=== PATIENT | male | born 1965 | race Caucasian/White ===

== ENCOUNTER 2018-02-15 04:01 | Emergency (ER) | payer SELFPAY, OTHER ==
[2018-02-15 04:55] LABS: INR-International Normal Ratio 1.7; Prothrombin Time 19.7 SEC (12.0-14.7)
[2018-02-15 05:01] LABS: ALT (SGPT) 21 U/L (8-55); AST (SGOT) 27 U/L (5-34); Albumin 4.2 g/dL (3.5-5.0); Alcohol 237 mg/dL (Less than 10); Alkaline Phosphatase 107 U/L (40-150); Anion Gap 15 mmol/L (10-20); BUN (Urea Nitrogen) 11 mg/dL (8.4-25.7); Bilirubin, Total 0.7 mg/dL (0.2-1.2); CK (CPK) 393 U/L (30-200); Calc. Creatinine Clearance 0 mL/min (70-130); Calcium 9.2 mg/dL (7.8-10.44); Carbon Dioxide 28 mmol/L (22-29); Chloride 103 mmol/L (98-107); Estimated GFR-MDRD Greater than 90; Globulin 3.5 g/dL (2.4-3.5); Glucose 96 mg/dL (70-105); Lipase 63 U/L (8-78); Potassium 3.9 mmol/L (3.5-5.1); Protein, Total 7.7 g/dL (6.0-8.3); Sodium 142 mmol/L (136-145)
[2018-02-15 05:04] LABS: #Basophils 0.1 thou/uL (0.0-0.2); #Eosinphils 0.2 thou/uL (0.0-0.7); #Lymphocytes 1.7 thou/uL (1.20-3.40); #Monocytes 0.7 thou/uL (0.11-0.59); #Neutrophils 3.9 thou/uL (1.40-6.50); %Eosinophils 2.8 % (0.0-10.0); %Lymphocytes 25.8 % (21.0-51.0); %Monocytes 10.8 % (0.0-10.0); %Neutrophils 58.6 % (42.0-75.0); Hemoglobin 17.5 g/dL (14.0-18.0); Mean Corpuscular HGB CONC 34.4 g/dL (32.0-36.0); Mean Corpuscular Hemoglobin 35.2 pg (27.0-31.0); Mean Corpuscular Volume 102.3 fL (78.0-98.0); Mean Platelet Volume 7.6 fL (7.4-10.4); Platelet Count 214 thou/uL (130-400); RBC Distribution Width 12.3 % (11.5-14.5); Red Blood Cell (RBC) Count 4.99 mill/uL (4.70-6.10); White Blood Cell (WBC) Count 6.6 thou/uL (4.8-10.8)
[2018-02-15 05:05] LABS: Anisocytosis MARKED = >30 cells (100X) (0-5/hpf); Macrocytosis MARKED = >30 cells (100X) (0-5/hpf)
[2018-02-15 05:07] LABS: Troponin I 0.094 ng/mL (< 0.028)
[2018-02-15 05:14] LABS: CKMB 8.4 ng/mL (0-6.6)
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
[2018-02-15] MEDS ORDERED: Iopamidol 370 76% 100 ML VIAL ONE (22:15)
== END 2018-02-15 07:00 | disposition short-term general hospital (02) ==
LOC: EDBD → MADERS 04:01
DX: S30.1XXA Contusion of abdominal wall, initial encounter (principal); S50.12XA Contusion of left forearm, initial encounter; S50.11XA Contusion of right forearm, initial encounter; S60.212A Contusion of left wrist, initial encounter; S60.211A Contusion of right wrist, initial encounter; R00.2 Palpitations; R07.9 Chest pain, unspecified; I48.91 Unspecified atrial fibrillation; E11.9 Type 2 diabetes mellitus without complications; E03.9 Hypothyroidism, unspecified; I10 Essential (primary) hypertension; J44.9 Chronic obstructive pulmonary disease, unspecified; F32.9 Major depressive disorder, single episode, unspecified; F17.210 Nicotine dependence, cigarettes, uncomplicated; Z79.82 Long term (current) use of aspirin; Z79.891 Long term (current) use of opiate analgesic; Z79.899 Other long term (current) drug therapy; X58.XXXA Exposure to other specified factors, initial encounter
CPT/HCPCS: 36415; 70450; 71260; 74177; 80053; 80307; 82553; 83690; 83880; 84484; 85025; 85610; 85730; 93005; 94760

== ENCOUNTER 2021-06-01 15:58 | Inpatient (IN) | payer MEDICARE ==
[2021-06-01] MEDS ORDERED: Acetaminophen 325 MG TAB PO PRN (21:35)
[2021-06-01] MEDS ORDERED: Bisacodyl 5 MG TAB PO PRN (21:35)
[2021-06-01] MEDS ORDERED: Ondansetron ODT 4 MG TAB PO PRN (21:35)
[2021-06-01] MEDS ORDERED: NICOTINE 14 MG TD SCH (21:45)
[2021-06-01] MEDS ORDERED: Albuterol 200 PUFF (6.7GM INHALER) INH PRN (21:52)
[2021-06-01] MEDS: HYDROcodone/Acetaminophen 10/325 mg Tablet PO PRN (22:16)
[2021-06-01] MEDS: Cephalexin 250 MG CAP PO SCH (22:17)
[2021-06-01] MEDS: Nicotine 7 MG PATCH TD SCH (22:17)
[2021-06-01] MEDS: Milk Of Magnesia 30 ML UDCUP PO PRN (22:17)
[2021-06-02] MEDS: Ciprofloxacin 500 MG TAB PO SCH ×2 (05:13→20:05)
[2021-06-02] MEDS: Cephalexin 250 MG CAP PO SCH ×3 (05:13→21:15)
[2021-06-02] MEDS: Levothyroxine Sodium 50 MCG TAB PO SCH (05:13)
[2021-06-02] MEDS: HYDROcodone/Acetaminophen 10/325 mg Tablet PO PRN ×4 (05:16→21:15)
[2021-06-02 05:55] LABS: INR-International Normal Ratio 1.8; Prothrombin Time 21.5 sec (12.0-14.7)
[2021-06-02] MEDS: Spironolactone 25 MG TAB PO SCH (08:07)
[2021-06-02] MEDS: Pregabalin 75 MG CAP PO SCH ×3 (08:07→21:13)
[2021-06-02] MEDS: Finasteride 5 MG TAB PO SCH (08:07)
[2021-06-02] MEDS: Atorvastatin Calcium 10 MG TAB PO SCH (08:08)
[2021-06-02] MEDS: Tamsulosin HCl 0.4 MG CAP PO SCH (08:08)
[2021-06-02] MEDS: Famotidine 20 MG TAB PO SCH ×2 (08:08→21:13)
[2021-06-02] MEDS: tiZANidine HCl 4 MG TAB PO SCH ×3 (08:16→21:15)
[2021-06-02] MEDS ORDERED: Bumetanide 1 MG TAB PO SCH (13:30)
[2021-06-02] MEDS: Warfarin Sodium 2.5 MG TAB PO SCH (16:20)
[2021-06-02] MEDS: Warfarin Sodium 5 MG TAB PO SCH (16:21)
[2021-06-02] MEDS ORDERED: Warfarin Sodium 7.5 MG TAB PO SCH (17:00)
[2021-06-02] MEDS: Bumetanide 1 MG TAB PO SCH (21:13)
[2021-06-02] MEDS: Nicotine 7 MG PATCH TD SCH (21:16)
[2021-06-03] MEDS: HYDROcodone/Acetaminophen 10/325 mg Tablet PO PRN ×4 (02:00→20:45)
[2021-06-03] MEDS: Cephalexin 250 MG CAP PO SCH (05:25)
[2021-06-03] MEDS: Levothyroxine Sodium 50 MCG TAB PO SCH (05:25)
[2021-06-03] MEDS: Ciprofloxacin 500 MG TAB PO SCH ×2 (05:25→20:41)
[2021-06-03 05:37] LABS: INR-International Normal Ratio 2.2; Prothrombin Time 25.2 sec (12.0-14.7)
[2021-06-03] MEDS: Famotidine 20 MG TAB PO SCH ×2 (08:28→20:42)
[2021-06-03] MEDS: Pregabalin 75 MG CAP PO SCH ×3 (08:28→20:41)
[2021-06-03] MEDS: Finasteride 5 MG TAB PO SCH (08:28)
[2021-06-03] MEDS: Bumetanide 1 MG TAB PO SCH ×2 (08:28→17:29)
[2021-06-03] MEDS: Spironolactone 25 MG TAB PO SCH (08:29)
[2021-06-03] MEDS: tiZANidine HCl 4 MG TAB PO SCH ×3 (08:29→20:42)
[2021-06-03] MEDS: Tamsulosin HCl 0.4 MG CAP PO SCH (08:29)
[2021-06-03] MEDS: Atorvastatin Calcium 10 MG TAB PO SCH ×2 (10:29→20:41)
[2021-06-03] MEDS: Cephalexin 500 MG CAP PO SCH ×2 (14:30→21:09)
[2021-06-03] MEDS: Warfarin Sodium 2.5 MG TAB PO SCH (17:31)
[2021-06-03] MEDS: Warfarin Sodium 5 MG TAB PO SCH (17:31)
[2021-06-03] MEDS ORDERED: Nicotine 14 MG PATCH TD SCH (21:00)
[2021-06-04] MEDS: HYDROcodone/Acetaminophen 10/325 mg Tablet PO PRN ×2 (01:29→22:06)
[2021-06-04] MEDS: Levothyroxine Sodium 50 MCG TAB PO SCH (05:15)
[2021-06-04] MEDS: Ciprofloxacin 500 MG TAB PO SCH ×2 (05:15→19:16)
[2021-06-04] MEDS: Cephalexin 500 MG CAP PO SCH ×3 (05:15→22:06)
[2021-06-04 05:36] LABS: Hemoglobin 11.4 g/dL (14.0-18.0); Platelet Count 355 thou/uL (130-400)
[2021-06-04 05:48] LABS: INR-International Normal Ratio 0.9; Prothrombin Time 12.6 sec (12.0-14.7)
[2021-06-04] MEDS: HYDROcodone/Acetaminophen 5/325 mg Tablet PO PRN ×3 (06:25→18:01)
[2021-06-04] MEDS: Pregabalin 75 MG CAP PO SCH ×3 (08:13→19:59)
[2021-06-04] MEDS: Bumetanide 1 MG TAB PO SCH ×2 (08:13→17:59)
[2021-06-04] MEDS: Famotidine 20 MG TAB PO SCH ×2 (08:13→20:00)
[2021-06-04] MEDS: Spironolactone 25 MG TAB PO SCH (08:14)
[2021-06-04] MEDS: Finasteride 5 MG TAB PO SCH (08:14)
[2021-06-04] MEDS: Tamsulosin HCl 0.4 MG CAP PO SCH (08:15)
[2021-06-04] MEDS: tiZANidine HCl 4 MG TAB PO SCH ×3 (08:15→20:00)
[2021-06-04] MEDS: Warfarin Sodium 5 MG TAB PO SCH (18:00)
[2021-06-04] MEDS: Warfarin Sodium 2.5 MG TAB PO SCH (18:01)
[2021-06-04] MEDS: Atorvastatin Calcium 10 MG TAB PO SCH (19:59)
[2021-06-04] MEDS: Milk Of Magnesia 30 ML UDCUP PO PRN (22:10)
[2021-06-05] MEDS: HYDROcodone/Acetaminophen 10/325 mg Tablet PO PRN ×5 (02:15→19:26)
[2021-06-05] MEDS: Levothyroxine Sodium 50 MCG TAB PO SCH (05:08)
[2021-06-05] MEDS: Ciprofloxacin 500 MG TAB PO SCH ×2 (05:08→19:27)
[2021-06-05] MEDS: Cephalexin 500 MG CAP PO SCH ×3 (05:08→21:00)
[2021-06-05 06:07] LABS: INR-International Normal Ratio 2.7; Prothrombin Time 29.6 sec (12.0-14.7)
[2021-06-05] MEDS: Finasteride 5 MG TAB PO SCH (09:46)
[2021-06-05] MEDS: tiZANidine HCl 4 MG TAB PO SCH ×3 (09:46→20:27)
[2021-06-05] MEDS: Pregabalin 75 MG CAP PO SCH ×3 (09:46→20:26)
[2021-06-05] MEDS: Bumetanide 1 MG TAB PO SCH ×2 (09:47→17:10)
[2021-06-05] MEDS: Polyethylene Glycol 3350 17 GM Packet PO SCH (09:48)
[2021-06-05] MEDS: Famotidine 20 MG TAB PO SCH ×2 (09:48→20:27)
[2021-06-05] MEDS: Spironolactone 25 MG TAB PO SCH (09:48)
[2021-06-05] MEDS: Tamsulosin HCl 0.4 MG CAP PO SCH (09:48)
[2021-06-05] MEDS: Warfarin Sodium 5 MG TAB PO SCH (17:10)
[2021-06-05] MEDS: Warfarin Sodium 2.5 MG TAB PO SCH (17:10)
[2021-06-05] MEDS: Milk Of Magnesia 30 ML UDCUP PO PRN (20:26)
[2021-06-05] MEDS: Atorvastatin Calcium 10 MG TAB PO SCH (20:27)
[2021-06-06] MEDS: HYDROcodone/Acetaminophen 10/325 mg Tablet PO PRN ×5 (02:26→20:49)
[2021-06-06] MEDS: Ciprofloxacin 500 MG TAB PO SCH ×2 (05:02→20:50)
[2021-06-06] MEDS: Levothyroxine Sodium 50 MCG TAB PO SCH (05:02)
[2021-06-06] MEDS: Cephalexin 500 MG CAP PO SCH ×3 (05:02→21:52)
[2021-06-06 05:37] LABS: INR-International Normal Ratio 2.7
[2021-06-06] MEDS: Famotidine 20 MG TAB PO SCH ×2 (09:10→20:51)
[2021-06-06] MEDS: Pregabalin 75 MG CAP PO SCH ×3 (09:10→20:49)
[2021-06-06] MEDS: Spironolactone 25 MG TAB PO SCH (09:10)
[2021-06-06] MEDS: Tamsulosin HCl 0.4 MG CAP PO SCH (09:10)
[2021-06-06] MEDS: Polyethylene Glycol 3350 17 GM Packet PO SCH (09:10)
[2021-06-06] MEDS: Bumetanide 1 MG TAB PO SCH ×2 (09:10→17:45)
[2021-06-06] MEDS: tiZANidine HCl 4 MG TAB PO SCH ×3 (09:11→20:51)
[2021-06-06] MEDS: Finasteride 5 MG TAB PO SCH (09:11)
[2021-06-06] MEDS: Warfarin Sodium 5 MG TAB PO SCH (17:46)
[2021-06-06] MEDS: Warfarin Sodium 2.5 MG TAB PO SCH (17:46)
[2021-06-06] MEDS: Atorvastatin Calcium 10 MG TAB PO SCH (20:51)
[2021-06-06] MEDS: Milk Of Magnesia 30 ML UDCUP PO PRN (22:53)
[2021-06-07] MEDS: HYDROcodone/Acetaminophen 10/325 mg Tablet PO PRN ×3 (04:00→16:18)
[2021-06-07] MEDS: Ciprofloxacin 500 MG TAB PO SCH ×2 (05:03→20:18)
[2021-06-07] MEDS: Levothyroxine Sodium 50 MCG TAB PO SCH (05:03)
[2021-06-07] MEDS: Cephalexin 500 MG CAP PO SCH ×3 (05:03→21:32)
[2021-06-07 05:26] LABS: Hemoglobin 13.4 g/dL (14.0-18.0); Platelet Count 197 thou/uL (130-400)
[2021-06-07 05:40] LABS: Prothrombin Time 31.5 sec (12.0-14.7)
[2021-06-07] MEDS: Polyethylene Glycol 3350 17 GM Packet PO SCH (08:12)
[2021-06-07] MEDS: Finasteride 5 MG TAB PO SCH (08:13)
[2021-06-07] MEDS: Famotidine 20 MG TAB PO SCH ×2 (08:13→20:18)
[2021-06-07] MEDS: Bumetanide 1 MG TAB PO SCH ×2 (08:13→17:04)
[2021-06-07] MEDS: Tamsulosin HCl 0.4 MG CAP PO SCH (08:14)
[2021-06-07] MEDS: tiZANidine HCl 4 MG TAB PO SCH ×3 (08:14→20:18)
[2021-06-07] MEDS: Pregabalin 75 MG CAP PO SCH ×3 (08:15→20:17)
[2021-06-07] MEDS: Spironolactone 25 MG TAB PO SCH (08:15)
[2021-06-07 15:45] LABS: SARS-CoV-2 PCR by NAA Not Detected (NotDetected)
[2021-06-07] MEDS ORDERED: HYDROcodone/Acetaminophen 10/325 mg Tablet PO PRN (17:41)
[2021-06-07] MEDS ORDERED: HYDROcodone/Acetaminophen 5/325 mg Tablet PO SCH (18:00)
[2021-06-07] MEDS: HYDROcodone/Acetaminophen 5/325 mg Tablet PO PRN (20:17)
[2021-06-07] MEDS: Atorvastatin Calcium 10 MG TAB PO SCH (20:18)
[2021-06-07] MEDS: Milk Of Magnesia 30 ML UDCUP PO PRN (20:18)
[2021-06-08] MEDS: HYDROcodone/Acetaminophen 5/325 mg Tablet PO PRN ×5 (01:54→21:40)
[2021-06-08] MEDS: Cephalexin 500 MG CAP PO SCH ×3 (05:11→21:41)
[2021-06-08] MEDS: Ciprofloxacin 500 MG TAB PO SCH ×2 (05:11→20:42)
[2021-06-08] MEDS: Levothyroxine Sodium 50 MCG TAB PO SCH (05:11)
[2021-06-08 05:38] LABS: INR-International Normal Ratio 2.8; Prothrombin Time 30.4 sec (12.0-14.7)
[2021-06-08] MEDS: Spironolactone 25 MG TAB PO SCH (08:43)
[2021-06-08] MEDS: Bumetanide 1 MG TAB PO SCH ×2 (08:43→17:00)
[2021-06-08] MEDS: Pregabalin 75 MG CAP PO SCH ×3 (08:43→20:42)
[2021-06-08] MEDS: Polyethylene Glycol 3350 17 GM Packet PO SCH (08:43)
[2021-06-08] MEDS: Famotidine 20 MG TAB PO SCH ×2 (08:43→20:43)
[2021-06-08] MEDS: tiZANidine HCl 4 MG TAB PO SCH ×3 (08:43→20:43)
[2021-06-08] MEDS: Finasteride 5 MG TAB PO SCH (08:43)
[2021-06-08] MEDS: Tamsulosin HCl 0.4 MG CAP PO SCH (08:43)
[2021-06-08] MEDS: Warfarin Sodium 5 MG TAB PO SCH (17:00)
[2021-06-08] MEDS ORDERED: Warfarin Sodium 5 MG TAB PO SCH (17:00)
[2021-06-08] MEDS: Atorvastatin Calcium 10 MG TAB PO SCH (20:42)
[2021-06-08] MEDS: Milk Of Magnesia 30 ML UDCUP PO PRN (20:46)
[2021-06-09] MEDS: HYDROcodone/Acetaminophen 5/325 mg Tablet PO PRN ×5 (01:27→19:32)
[2021-06-09] MEDS: Cephalexin 500 MG CAP PO SCH ×3 (05:29→21:11)
[2021-06-09] MEDS: Levothyroxine Sodium 50 MCG TAB PO SCH (05:29)
[2021-06-09] MEDS: Ciprofloxacin 500 MG TAB PO SCH ×2 (05:29→19:31)
[2021-06-09 05:55] LABS: INR-International Normal Ratio 2.8; Prothrombin Time 30.3 sec (12.0-14.7)
[2021-06-09] MEDS: Finasteride 5 MG TAB PO SCH (08:41)
[2021-06-09] MEDS: Spironolactone 25 MG TAB PO SCH (08:41)
[2021-06-09] MEDS: Famotidine 20 MG TAB PO SCH ×2 (08:41→20:03)
[2021-06-09] MEDS: Bumetanide 1 MG TAB PO SCH ×2 (08:41→16:58)
[2021-06-09] MEDS: Tamsulosin HCl 0.4 MG CAP PO SCH (08:41)
[2021-06-09] MEDS: tiZANidine HCl 4 MG TAB PO SCH ×3 (08:41→20:02)
[2021-06-09] MEDS: Pregabalin 75 MG CAP PO SCH ×3 (08:41→20:00)
[2021-06-09] MEDS: Polyethylene Glycol 3350 17 GM Packet PO SCH (08:41)
[2021-06-09] MEDS: Warfarin Sodium 5 MG TAB PO SCH (16:59)
[2021-06-09] MEDS: Senokot S 8.6-50 MG TAB PO PRN (20:00)
[2021-06-09] MEDS: Milk Of Magnesia 30 ML UDCUP PO PRN (20:00)
[2021-06-09] MEDS: Atorvastatin Calcium 10 MG TAB PO SCH (20:01)
[2021-06-10] MEDS: HYDROcodone/Acetaminophen 5/325 mg Tablet PO PRN ×6 (00:42→23:47)
[2021-06-10] MEDS: Cephalexin 500 MG CAP PO SCH ×3 (05:03→21:35)
[2021-06-10] MEDS: Ciprofloxacin 500 MG TAB PO SCH ×2 (05:04→20:00)
[2021-06-10] MEDS: Levothyroxine Sodium 50 MCG TAB PO SCH (05:04)
[2021-06-10 05:44] LABS: Platelet Count 179 thou/uL (130-400)
[2021-06-10 05:49] LABS: INR-International Normal Ratio 2.2; Prothrombin Time 25.2 sec (12.0-14.7)
[2021-06-10] MEDS: Pregabalin 75 MG CAP PO SCH ×3 (08:11→21:36)
[2021-06-10] MEDS: Polyethylene Glycol 3350 17 GM Packet PO SCH (08:12)
[2021-06-10] MEDS: Bumetanide 1 MG TAB PO SCH ×2 (08:12→17:23)
[2021-06-10] MEDS: Finasteride 5 MG TAB PO SCH (08:13)
[2021-06-10] MEDS: Spironolactone 25 MG TAB PO SCH (08:13)
[2021-06-10] MEDS: tiZANidine HCl 4 MG TAB PO SCH ×3 (08:13→21:35)
[2021-06-10] MEDS: Tamsulosin HCl 0.4 MG CAP PO SCH (08:13)
[2021-06-10] MEDS: Famotidine 20 MG TAB PO SCH ×2 (08:13→21:35)
[2021-06-10] MEDS ORDERED: Pregabalin 75 MG CAP PO SCH (15:00)
[2021-06-10] MEDS: Warfarin Sodium 5 MG TAB PO SCH (17:24)
[2021-06-10] MEDS: Atorvastatin Calcium 10 MG TAB PO SCH (21:35)
[2021-06-10] MEDS: Milk Of Magnesia 30 ML UDCUP PO PRN (21:38)
[2021-06-11] MEDS: Levothyroxine Sodium 50 MCG TAB PO SCH (05:19)
[2021-06-11] MEDS: Cephalexin 500 MG CAP PO SCH ×3 (05:19→21:34)
[2021-06-11] MEDS: HYDROcodone/Acetaminophen 5/325 mg Tablet PO PRN ×4 (05:20→19:46)
[2021-06-11] MEDS: Ciprofloxacin 500 MG TAB PO SCH ×2 (05:20→19:46)
[2021-06-11 05:43] LABS: INR-International Normal Ratio 2.1; Prothrombin Time 24.3 sec (12.0-14.7)
[2021-06-11] MEDS: Tamsulosin HCl 0.4 MG CAP PO SCH (08:52)
[2021-06-11] MEDS: Bumetanide 1 MG TAB PO SCH ×2 (08:52→17:05)
[2021-06-11] MEDS: Famotidine 20 MG TAB PO SCH ×2 (08:52→21:34)
[2021-06-11] MEDS: Polyethylene Glycol 3350 17 GM Packet PO SCH (08:52)
[2021-06-11] MEDS: Spironolactone 25 MG TAB PO SCH (08:52)
[2021-06-11] MEDS: tiZANidine HCl 4 MG TAB PO SCH ×3 (08:52→21:34)
[2021-06-11] MEDS: Finasteride 5 MG TAB PO SCH (08:52)
[2021-06-11] MEDS: Pregabalin 75 MG CAP PO SCH ×3 (08:55→21:34)
[2021-06-11] MEDS: Warfarin Sodium 5 MG TAB PO SCH (17:06)
[2021-06-11] MEDS: Atorvastatin Calcium 10 MG TAB PO SCH (21:34)
[2021-06-11] MEDS: Senokot S 8.6-50 MG TAB PO PRN (21:40)
[2021-06-11] MEDS: Milk Of Magnesia 30 ML UDCUP PO PRN (21:41)
[2021-06-12] MEDS: HYDROcodone/Acetaminophen 5/325 mg Tablet PO PRN ×4 (02:46→20:22)
[2021-06-12] MEDS: Cephalexin 500 MG CAP PO SCH ×3 (05:29→20:23)
[2021-06-12] MEDS: Levothyroxine Sodium 50 MCG TAB PO SCH (05:29)
[2021-06-12] MEDS: Ciprofloxacin 500 MG TAB PO SCH ×2 (05:30→20:23)
[2021-06-12 05:35] LABS: INR-International Normal Ratio 1.9
[2021-06-12] MEDS: Spironolactone 25 MG TAB PO SCH (08:38)
[2021-06-12] MEDS: Bumetanide 1 MG TAB PO SCH ×2 (08:38→17:34)
[2021-06-12] MEDS: tiZANidine HCl 4 MG TAB PO SCH ×3 (08:38→20:22)
[2021-06-12] MEDS: Finasteride 5 MG TAB PO SCH (08:39)
[2021-06-12] MEDS: Tamsulosin HCl 0.4 MG CAP PO SCH (08:39)
[2021-06-12] MEDS: Polyethylene Glycol 3350 17 GM Packet PO SCH (08:39)
[2021-06-12] MEDS: Famotidine 20 MG TAB PO SCH ×2 (08:39→20:22)
[2021-06-12] MEDS: Pregabalin 75 MG CAP PO SCH ×3 (08:39→20:22)
[2021-06-12] MEDS: Warfarin Sodium 7.5 MG TAB PO SCH (17:35)
[2021-06-12] MEDS: Milk Of Magnesia 30 ML UDCUP PO PRN (20:21)
[2021-06-12] MEDS: Atorvastatin Calcium 10 MG TAB PO SCH (20:23)
[2021-06-13] MEDS: HYDROcodone/Acetaminophen 5/325 mg Tablet PO PRN ×6 (01:18→23:51)
[2021-06-13] MEDS: Levothyroxine Sodium 50 MCG TAB PO SCH (05:31)
[2021-06-13 05:33] LABS: Platelet Count 174 thou/uL (130-400)
[2021-06-13 05:41] LABS: INR-International Normal Ratio 1.8; Prothrombin Time 20.9 sec (12.0-14.7)
[2021-06-13] MEDS: Penicillin V Potassium 250 MG TAB PO SCH ×2 (08:26→19:52)
[2021-06-13] MEDS: Tamsulosin HCl 0.4 MG CAP PO SCH (08:27)
[2021-06-13] MEDS: Finasteride 5 MG TAB PO SCH (08:27)
[2021-06-13] MEDS: Famotidine 20 MG TAB PO SCH ×2 (08:27→19:53)
[2021-06-13] MEDS: Bumetanide 1 MG TAB PO SCH ×2 (08:27→17:00)
[2021-06-13] MEDS: tiZANidine HCl 4 MG TAB PO SCH ×3 (08:27→19:54)
[2021-06-13] MEDS: Spironolactone 25 MG TAB PO SCH (08:27)
[2021-06-13] MEDS: Polyethylene Glycol 3350 17 GM Packet PO SCH (08:27)
[2021-06-13] MEDS: Pregabalin 75 MG CAP PO SCH ×3 (08:27→19:52)
[2021-06-13] MEDS: Warfarin Sodium 7.5 MG TAB PO SCH (17:00)
[2021-06-13] MEDS: Atorvastatin Calcium 10 MG TAB PO SCH (19:52)
[2021-06-13] MEDS: Milk Of Magnesia 30 ML UDCUP PO PRN (19:54)
[2021-06-14] MEDS: HYDROcodone/Acetaminophen 5/325 mg Tablet PO PRN ×4 (04:42→21:50)
[2021-06-14] MEDS: Levothyroxine Sodium 50 MCG TAB PO SCH (04:43)
[2021-06-14 05:32] LABS: INR-International Normal Ratio 1.8; Prothrombin Time 20.8 sec (12.0-14.7)
[2021-06-14] MEDS ORDERED: Tamsulosin HCl 0.4 MG CAP ONE (08:24)
[2021-06-14] MEDS: Penicillin V Potassium 250 MG TAB PO SCH ×2 (08:29→21:51)
[2021-06-14] MEDS: Bumetanide 1 MG TAB PO SCH ×2 (08:29→16:40)
[2021-06-14] MEDS: Finasteride 5 MG TAB PO SCH (08:30)
[2021-06-14] MEDS: Tamsulosin HCl 0.4 MG CAP PO SCH (08:30)
[2021-06-14] MEDS: Spironolactone 25 MG TAB PO SCH (08:30)
[2021-06-14] MEDS: Famotidine 20 MG TAB PO SCH ×2 (08:30→21:51)
[2021-06-14] MEDS: tiZANidine HCl 4 MG TAB PO SCH ×3 (08:30→21:51)
[2021-06-14] MEDS: Polyethylene Glycol 3350 17 GM Packet PO SCH (08:30)
[2021-06-14] MEDS: Pregabalin 75 MG CAP PO SCH ×3 (08:30→21:49)
[2021-06-14] MEDS: Warfarin Sodium 7.5 MG TAB PO SCH (16:41)
[2021-06-14 17:58] LABS: SARS-CoV-2 PCR by NAA Not Detected (NotDetected)
[2021-06-14] MEDS: Atorvastatin Calcium 10 MG TAB PO SCH (21:51)
[2021-06-15] MEDS: HYDROcodone/Acetaminophen 5/325 mg Tablet PO PRN ×4 (02:10→21:05)
[2021-06-15 05:39] LABS: INR-International Normal Ratio 1.7
[2021-06-15] MEDS: Levothyroxine Sodium 50 MCG TAB PO SCH (05:46)
[2021-06-15] MEDS: Polyethylene Glycol 3350 17 GM Packet PO SCH (08:05)
[2021-06-15] MEDS: Finasteride 5 MG TAB PO SCH (08:06)
[2021-06-15] MEDS: Bumetanide 1 MG TAB PO SCH ×2 (08:06→17:23)
[2021-06-15] MEDS: tiZANidine HCl 4 MG TAB PO SCH ×3 (08:06→21:04)
[2021-06-15] MEDS: Pregabalin 75 MG CAP PO SCH ×3 (08:06→21:04)
[2021-06-15] MEDS: Tamsulosin HCl 0.4 MG CAP PO SCH (08:07)
[2021-06-15] MEDS: Spironolactone 25 MG TAB PO SCH (08:07)
[2021-06-15] MEDS: Famotidine 20 MG TAB PO SCH ×2 (08:07→21:04)
[2021-06-15] MEDS: Penicillin V Potassium 250 MG TAB PO SCH ×2 (08:07→21:04)
[2021-06-15] MEDS: Warfarin Sodium 7.5 MG TAB PO SCH (17:23)
[2021-06-15] MEDS: Atorvastatin Calcium 10 MG TAB PO SCH (21:04)
[2021-06-15] MEDS ORDERED: Melatonin 3 MG TAB PO PRN (21:18)
[2021-06-16] MEDS: HYDROcodone/Acetaminophen 5/325 mg Tablet PO PRN ×5 (02:54→20:30)
[2021-06-16 05:19] LABS: Hemoglobin 12.6 g/dL (14.0-18.0); Platelet Count 173 thou/uL (130-400)
[2021-06-16 05:29] LABS: INR-International Normal Ratio 1.7; Prothrombin Time 20.5 sec (12.0-14.7)
[2021-06-16] MEDS: Levothyroxine Sodium 50 MCG TAB PO SCH (05:44)
[2021-06-16] MEDS: Penicillin V Potassium 250 MG TAB PO SCH ×2 (08:04→20:32)
[2021-06-16] MEDS: tiZANidine HCl 4 MG TAB PO SCH ×3 (08:04→20:33)
[2021-06-16] MEDS: Bumetanide 1 MG TAB PO SCH ×2 (08:04→16:15)
[2021-06-16] MEDS: Polyethylene Glycol 3350 17 GM Packet PO SCH (08:04)
[2021-06-16] MEDS: Finasteride 5 MG TAB PO SCH (08:04)
[2021-06-16] MEDS: Famotidine 20 MG TAB PO SCH ×2 (08:04→20:33)
[2021-06-16] MEDS: Tamsulosin HCl 0.4 MG CAP PO SCH (08:04)
[2021-06-16] MEDS: Pregabalin 75 MG CAP PO SCH ×3 (08:04→20:32)
[2021-06-16] MEDS: Spironolactone 25 MG TAB PO SCH (08:04)
[2021-06-16] MEDS: Warfarin Sodium 1 MG TAB PO SCH (16:15)
[2021-06-16] MEDS: Warfarin Sodium 7.5 MG TAB PO SCH (16:15)
[2021-06-16] MEDS: Atorvastatin Calcium 10 MG TAB PO SCH (20:33)
[2021-06-17] MEDS: Melatonin 3 MG TAB PO PRN ×2 (00:13→20:22)
[2021-06-17] MEDS: HYDROcodone/Acetaminophen 5/325 mg Tablet PO PRN ×5 (00:13→21:22)
[2021-06-17] MEDS: Levothyroxine Sodium 50 MCG TAB PO SCH (05:24)
[2021-06-17 05:39] LABS: INR-International Normal Ratio 1.8; Prothrombin Time 21.2 sec (12.0-14.7)
[2021-06-17] MEDS: Pregabalin 75 MG CAP PO SCH ×3 (08:03→20:21)
[2021-06-17] MEDS: Bumetanide 1 MG TAB PO SCH ×2 (08:04→16:46)
[2021-06-17] MEDS: Spironolactone 25 MG TAB PO SCH (08:04)
[2021-06-17] MEDS: Polyethylene Glycol 3350 17 GM Packet PO SCH (08:04)
[2021-06-17] MEDS: Famotidine 20 MG TAB PO SCH ×2 (08:05→20:22)
[2021-06-17] MEDS: Penicillin V Potassium 250 MG TAB PO SCH ×2 (08:05→20:22)
[2021-06-17] MEDS: tiZANidine HCl 4 MG TAB PO SCH ×3 (08:05→20:22)
[2021-06-17] MEDS: Tamsulosin HCl 0.4 MG CAP PO SCH (08:05)
[2021-06-17] MEDS: Finasteride 5 MG TAB PO SCH (08:06)
[2021-06-17] MEDS: Warfarin Sodium 1 MG TAB PO SCH (16:46)
[2021-06-17] MEDS: Warfarin Sodium 7.5 MG TAB PO SCH (16:47)
[2021-06-17] MEDS: Atorvastatin Calcium 10 MG TAB PO SCH (20:22)
[2021-06-17] MEDS: Milk Of Magnesia 30 ML UDCUP PO PRN (21:59)
[2021-06-18] MEDS: HYDROcodone/Acetaminophen 5/325 mg Tablet PO PRN ×4 (01:27→20:34)
[2021-06-18] MEDS: Levothyroxine Sodium 50 MCG TAB PO SCH (05:16)
[2021-06-18 06:33] LABS: INR-International Normal Ratio 1.6; Prothrombin Time 19.5 sec (12.0-14.7)
[2021-06-18] MEDS: Pregabalin 75 MG CAP PO SCH ×3 (08:18→20:33)
[2021-06-18] MEDS: Polyethylene Glycol 3350 17 GM Packet PO SCH (08:18)
[2021-06-18] MEDS: Spironolactone 25 MG TAB PO SCH (08:19)
[2021-06-18] MEDS: Bumetanide 1 MG TAB PO SCH ×2 (08:19→16:24)
[2021-06-18] MEDS: Tamsulosin HCl 0.4 MG CAP PO SCH (08:20)
[2021-06-18] MEDS: Finasteride 5 MG TAB PO SCH (08:20)
[2021-06-18] MEDS: Penicillin V Potassium 250 MG TAB PO SCH ×2 (08:20→20:32)
[2021-06-18] MEDS: Famotidine 20 MG TAB PO SCH ×2 (08:21→20:32)
[2021-06-18] MEDS: tiZANidine HCl 4 MG TAB PO SCH ×3 (08:21→20:33)
[2021-06-18] MEDS: Warfarin Sodium 5 MG TAB PO SCH (16:29)
[2021-06-18] MEDS ORDERED: Sulfameth/Trimethoprim DS 800-160mg TAB PO SCH (18:00)
[2021-06-18] MEDS: Atorvastatin Calcium 10 MG TAB PO SCH (20:32)
[2021-06-18] MEDS: Sulfameth/Trimethoprim DS 800-160mg TAB PO SCH (20:33)
[2021-06-18] MEDS: Milk Of Magnesia 30 ML UDCUP PO PRN (22:27)
[2021-06-18] MEDS: Melatonin 3 MG TAB PO PRN (22:27)
[2021-06-19] MEDS: HYDROcodone/Acetaminophen 5/325 mg Tablet PO PRN ×4 (02:32→20:08)
[2021-06-19 05:22] LABS: Platelet Count 172 thou/uL (130-400)
[2021-06-19] MEDS: Levothyroxine Sodium 50 MCG TAB PO SCH (05:27)
[2021-06-19 05:32] LABS: INR-International Normal Ratio 1.8
[2021-06-19] MEDS: Penicillin V Potassium 250 MG TAB PO SCH ×2 (08:31→20:09)
[2021-06-19] MEDS: Polyethylene Glycol 3350 17 GM Packet PO SCH (08:31)
[2021-06-19] MEDS: Finasteride 5 MG TAB PO SCH (08:31)
[2021-06-19] MEDS: Famotidine 20 MG TAB PO SCH ×2 (08:31→20:10)
[2021-06-19] MEDS: Bumetanide 1 MG TAB PO SCH ×2 (08:32→17:51)
[2021-06-19] MEDS: tiZANidine HCl 4 MG TAB PO SCH ×3 (08:32→20:09)
[2021-06-19] MEDS: Pregabalin 75 MG CAP PO SCH ×3 (08:32→20:08)
[2021-06-19] MEDS: Tamsulosin HCl 0.4 MG CAP PO SCH (08:32)
[2021-06-19] MEDS: Sulfameth/Trimethoprim DS 800-160mg TAB PO SCH ×2 (08:33→20:10)
[2021-06-19] MEDS: Spironolactone 25 MG TAB PO SCH (11:36)
[2021-06-19] MEDS: Warfarin Sodium 5 MG TAB PO SCH (17:52)
[2021-06-19] MEDS: Milk Of Magnesia 30 ML UDCUP PO PRN (20:09)
[2021-06-19] MEDS: Atorvastatin Calcium 10 MG TAB PO SCH (20:10)
[2021-06-19] MEDS: Melatonin 3 MG TAB PO PRN (20:10)
[2021-06-19] MEDS: Senokot S 8.6-50 MG TAB PO PRN (23:07)
[2021-06-20] MEDS: HYDROcodone/Acetaminophen 5/325 mg Tablet PO PRN ×5 (02:10→20:06)
[2021-06-20 05:32] LABS: INR-International Normal Ratio 1.8; Prothrombin Time 21.6 sec (12.0-14.7)
[2021-06-20] MEDS: Levothyroxine Sodium 50 MCG TAB PO SCH (06:08)
[2021-06-20] MEDS: tiZANidine HCl 4 MG TAB PO SCH ×3 (08:42→20:06)
[2021-06-20] MEDS: Polyethylene Glycol 3350 17 GM Packet PO SCH (08:42)
[2021-06-20] MEDS: Finasteride 5 MG TAB PO SCH (08:42)
[2021-06-20] MEDS: Famotidine 20 MG TAB PO SCH ×2 (08:42→20:06)
[2021-06-20] MEDS: Tamsulosin HCl 0.4 MG CAP PO SCH (08:42)
[2021-06-20] MEDS: Bumetanide 1 MG TAB PO SCH ×2 (08:42→16:59)
[2021-06-20] MEDS: Sulfameth/Trimethoprim DS 800-160mg TAB PO SCH ×2 (08:42→20:06)
[2021-06-20] MEDS: Spironolactone 25 MG TAB PO SCH (08:42)
[2021-06-20] MEDS: Penicillin V Potassium 250 MG TAB PO SCH ×2 (08:42→20:04)
[2021-06-20] MEDS: Pregabalin 75 MG CAP PO SCH ×3 (08:43→20:05)
[2021-06-20] MEDS: Warfarin Sodium 5 MG TAB PO SCH (16:59)
[2021-06-20] MEDS: Atorvastatin Calcium 10 MG TAB PO SCH (20:05)
[2021-06-21] MEDS: Melatonin 3 MG TAB PO PRN (01:05)
[2021-06-21] MEDS: HYDROcodone/Acetaminophen 5/325 mg Tablet PO PRN ×5 (01:06→20:18)
[2021-06-21] MEDS: Levothyroxine Sodium 50 MCG TAB PO SCH (05:20)
[2021-06-21 05:36] LABS: INR-International Normal Ratio 2.1; Prothrombin Time 24.2 sec (12.0-14.7)
[2021-06-21] MEDS ORDERED: Tamsulosin HCl 0.4 MG CAP ONE (08:13)
[2021-06-21] MEDS: tiZANidine HCl 4 MG TAB PO SCH ×3 (08:32→20:18)
[2021-06-21] MEDS: Famotidine 20 MG TAB PO SCH ×2 (08:32→20:18)
[2021-06-21] MEDS: Polyethylene Glycol 3350 17 GM Packet PO SCH (08:32)
[2021-06-21] MEDS: Spironolactone 25 MG TAB PO SCH (08:32)
[2021-06-21] MEDS: Bumetanide 1 MG TAB PO SCH ×2 (08:32→17:03)
[2021-06-21] MEDS: Penicillin V Potassium 250 MG TAB PO SCH ×2 (08:32→20:18)
[2021-06-21] MEDS: Tamsulosin HCl 0.4 MG CAP PO SCH (08:33)
[2021-06-21] MEDS: Finasteride 5 MG TAB PO SCH (08:33)
[2021-06-21] MEDS: Pregabalin 75 MG CAP PO SCH ×3 (08:33→20:19)
[2021-06-21] MEDS: Sulfameth/Trimethoprim DS 800-160mg TAB PO SCH ×2 (08:33→20:18)
[2021-06-21 14:50] LABS: SARS-CoV-2 PCR by NAA Not Detected (NotDetected)
[2021-06-21] MEDS: Warfarin Sodium 5 MG TAB PO SCH (17:02)
[2021-06-21] MEDS: Atorvastatin Calcium 10 MG TAB PO SCH (20:18)
[2021-06-21 20:36] VITALS: BMI 37.8
[2021-06-22] MEDS ORDERED: Milk Of Magnesia 30 ML UDCUP ONE (00:05)
[2021-06-22] MEDS ORDERED: Melatonin 3 MG TAB ONE (00:06)
[2021-06-22] MEDS ORDERED: HYDROcodone/Acetaminophen 5/325 mg Tablet ONE (00:07)
[2021-06-22] MEDS: Milk Of Magnesia 30 ML UDCUP PO PRN (00:08)
[2021-06-22] MEDS: Melatonin 3 MG TAB PO PRN (00:09)
[2021-06-22] MEDS: HYDROcodone/Acetaminophen 5/325 mg Tablet PO PRN ×3 (00:09→09:42)
[2021-06-22] MEDS: Levothyroxine Sodium 50 MCG TAB PO SCH (05:15)
[2021-06-22 05:50] LABS: Hemoglobin 12.6 g/dL (14.0-18.0); Platelet Count 172 thou/uL (130-400)
[2021-06-22 05:53] LABS: INR-International Normal Ratio 2.2; Prothrombin Time 24.5 sec (12.0-14.7)
[2021-06-22] MEDS: Polyethylene Glycol 3350 17 GM Packet PO SCH (08:33)
[2021-06-22] MEDS: Famotidine 20 MG TAB PO SCH (08:34)
[2021-06-22] MEDS: Spironolactone 25 MG TAB PO SCH (08:34)
[2021-06-22] MEDS: Bumetanide 1 MG TAB PO SCH (08:34)
[2021-06-22] MEDS: Tamsulosin HCl 0.4 MG CAP PO SCH (08:34)
[2021-06-22] MEDS: Sulfameth/Trimethoprim DS 800-160mg TAB PO SCH (08:35)
[2021-06-22] MEDS: Penicillin V Potassium 250 MG TAB PO SCH (08:35)
[2021-06-22] MEDS: Finasteride 5 MG TAB PO SCH (08:35)
[2021-06-22] MEDS: tiZANidine HCl 4 MG TAB PO SCH ×2 (08:35→15:14)
[2021-06-22] MEDS: Pregabalin 75 MG CAP PO SCH ×2 (08:39→15:14)
[2021-06-22 11:58] VITALS: BP 126/76; TEMP 97.9
== END 2021-06-22 16:00 | disposition home or self-care (01) | DRG 947 ==
LOC: MADMS 19:26
PROVIDERS: ADMIT Family Medicine; ATTEND Family Medicine
DX: R53.81 Other malaise (principal); J18.9 Pneumonia, unspecified organism; L03.116 Cellulitis of left lower limb; R26.81 Unsteadiness on feet; Z20.822 Contact with and (suspected) exposure to COVID-19; G47.33 Obstructive sleep apnea (adult) (pediatric); I87.8 Other specified disorders of veins; I50.9 Heart failure, unspecified; E11.9 Type 2 diabetes mellitus without complications; E03.9 Hypothyroidism, unspecified; F17.210 Nicotine dependence, cigarettes, uncomplicated; F10.20 Alcohol dependence, uncomplicated; I48.0 Paroxysmal atrial fibrillation; K59.09 Other constipation; D53.9 Nutritional anemia, unspecified; Z79.890 Hormone replacement therapy; Z79.01 Long term (current) use of anticoagulants; Z99.81 Dependence on supplemental oxygen; Z79.899 Other long term (current) drug therapy; Z79.891 Long term (current) use of opiate analgesic; Z95.0 Presence of cardiac pacemaker
CPT/HCPCS: 36415; 85014; 85018; 85049; 85610; 87070; 87077; 87186; 87205; 97602; U0003; U0005

== ENCOUNTER 2022-02-16 19:11 | Inpatient (IN) | payer OTHER ==
[2022-02-16] MEDS ORDERED: Docusate 100 MG CAP PO PRN (23:15)
[2022-02-16] MEDS ORDERED: Milk Of Magnesia 30 ML UDCUP PO PRN (23:23)
[2022-02-16] MEDS ORDERED: Folic Acid 1 MG TAB PO SCH (23:59)
[2022-02-16] MEDS ORDERED: Acetaminophen ER (8hr) 650 MG TAB PO SCH (23:59)
[2022-02-16] MEDS ORDERED: Thiamine 100 MG TAB PO SCH (23:59)
[2022-02-16] MEDS ORDERED: HYDROcodone/Acetaminophen 10/325 mg Tablet PO SCH (23:59)
[2022-02-16] MEDS ORDERED: Pregabalin 50 MG CAP PO SCH (23:59)
[2022-02-17] MEDS: Piperacillin/Tazobactam 3.375 GM in Sodium Chloride 0.9% 100 ML IVPB SCH ×4 (00:34→23:52)
[2022-02-17] MEDS: Acetaminophen ER (8hr) 650 MG TAB PO SCH ×3 (05:49→21:08)
[2022-02-17] MEDS: HYDROcodone/Acetaminophen 10/325 mg Tablet PO SCH ×3 (08:49→21:10)
[2022-02-17] MEDS: Docusate 100 MG CAP PO SCH (08:49)
[2022-02-17] MEDS: Pregabalin 50 MG CAP PO SCH ×3 (08:58→21:09)
[2022-02-17] MEDS ORDERED: FLU VACC QS2022-23(6MOS UP)/PF 60 MCG/0.5 ML SYRINGE IM ONE (09:00)
[2022-02-17 09:07] LABS: INR-International Normal Ratio 1.3; Prothrombin Time 16.6 sec (12.0-14.7)
[2022-02-17] MEDS ORDERED: Sodium Hypochlorite 0.25% Solution 480 ML BOT TOP PRN (12:56)
[2022-02-17] MEDS: Bumetanide 1 MG TAB PO SCH (17:41)
[2022-02-17] MEDS: Warfarin Sodium 5 MG TAB PO SCH (17:41)
[2022-02-17] MEDS ORDERED: Thiamine 100 MG TAB PO SCH (21:00)
[2022-02-17] MEDS: Thiamine 100 MG TAB PO SCH (21:08)
[2022-02-17] MEDS: Folic Acid 1 MG TAB PO SCH (21:08)
[2022-02-18 05:42] LABS: INR-International Normal Ratio 1.5; Prothrombin Time 18.6 sec (12.0-14.7)
[2022-02-18] MEDS: Levothyroxine Sodium 50 MCG TAB PO SCH (05:47)
[2022-02-18] MEDS: Acetaminophen ER (8hr) 650 MG TAB PO SCH (05:47)
[2022-02-18 05:53] LABS: ALT (SGPT) 10 U/L (8-55); AST (SGOT) 17 U/L (5-34); Albumin 3.9 g/dL (3.5-5.0); Alkaline Phosphatase 101 U/L (40-110); Anion Gap 16 mmol/L (10-20); BUN (Urea Nitrogen) 23 mg/dL (8.4-25.7); Bilirubin, Total 1.4 mg/dL (0.2-1.2); Calc. Creatinine Clearance 169 mL/min (70-130); Calcium 9.3 mg/dL (7.8-10.44); Carbon Dioxide 24 mmol/L (22-29); Cardiac Risk 2.9 (Less than 4.5); Chloride 101 mmol/L (98-107); Cholesterol 105 mg/dl (< 200 Desired); Estimated GFR 92; Globulin 3.8 g/dL (2.4-3.5); Glucose 108 mg/dL (70-105); HDL Cholesterol 36 mg/dL (>60 Neg Risk); LDL Cholesterol, Calculated 49 mg/dL; Potassium 3.9 mmol/L (3.5-5.1); Protein, Total 7.7 g/dL (6.0-8.3); Sodium 137 mmol/L (136-145); Triglycerides 100 mg/dL (Less than 150)
[2022-02-18 05:55] LABS: Band 1 % (5-11); Eosinophils 6 % (0-10); Hemoglobin 15.2 g/dL (14.0-18.0); Lymphocytes 30 % (21-51); MDiff Complete? YES; Mean Corpuscular HGB CONC 34.6 g/dL (32.0-36.0); Mean Corpuscular Hemoglobin 34.9 pg (27.0-31.0); Mean Corpuscular Volume 100.9 fl (78.0-98.0); Mean Platelet Volume 7.4 fL (7.4-10.4); Monocytes 5 % (0-10); Neutrophil 58 % (42-75); Platelet Count 180 10x3/uL (130-400); Platelet Morphology Comment Appears Adequate; RBC Distribution Width 13.2 % (11.5-14.5); RBC Morphology Normal; Red Blood Cell (RBC) Count 4.35 mill/uL (4.70-6.10); White Blood Cell (WBC) Count 5.9 10x3/uL (4.8-10.8)
[2022-02-18] MEDS: Piperacillin/Tazobactam 3.375 GM in Sodium Chloride 0.9% 100 ML IVPB SCH ×3 (07:59→23:41)
[2022-02-18] MEDS: Bumetanide 1 MG TAB PO SCH ×2 (08:00→17:22)
[2022-02-18] MEDS: Pregabalin 50 MG CAP PO SCH ×3 (08:00→21:22)
[2022-02-18] MEDS: Finasteride 5 MG TAB PO SCH (08:00)
[2022-02-18] MEDS: Spironolactone 25 MG TAB PO SCH (08:00)
[2022-02-18] MEDS: Docusate 100 MG CAP PO SCH (08:01)
[2022-02-18] MEDS: Atorvastatin Calcium 10 MG TAB PO SCH (08:01)
[2022-02-18] MEDS: HYDROcodone/Acetaminophen 10/325 mg Tablet PO SCH (08:01)
[2022-02-18] MEDS: Tamsulosin HCl 0.4 MG CAP PO SCH (08:01)
[2022-02-18] MEDS: Sodium Hypochlorite 0.25% Solution 480 ML BOT TOP SCH (08:02)
[2022-02-18] MEDS: Emollient 15 oz bottle 450 ML, Triamcinolone Acetonide 200 MG TOP SCH (08:03)
[2022-02-18] MEDS: Milk Of Magnesia 30 ML UDCUP PO SCH (08:04)
[2022-02-18] MEDS ORDERED: Acetaminophen 325 MG TAB PO PRN (10:41)
[2022-02-18] MEDS: HYDROcodone/Acetaminophen 10/325 mg Tablet PO PRN ×2 (17:23→23:42)
[2022-02-18] MEDS: Warfarin Sodium 5 MG TAB PO SCH (17:23)
[2022-02-18] MEDS ORDERED: Milk Of Magnesia 30 ML UDCUP PO SCH (21:00)
[2022-02-18] MEDS: Folic Acid 1 MG TAB PO SCH (21:23)
[2022-02-18] MEDS: Thiamine 100 MG TAB PO SCH (21:24)
[2022-02-19 05:18] LABS: INR-International Normal Ratio 1.6; Prothrombin Time 19.3 sec (12.0-14.7)
[2022-02-19] MEDS: Levothyroxine Sodium 50 MCG TAB PO SCH (05:31)
[2022-02-19] MEDS: HYDROcodone/Acetaminophen 10/325 mg Tablet PO PRN ×3 (05:31→21:29)
[2022-02-19] MEDS: Piperacillin/Tazobactam 3.375 GM in Sodium Chloride 0.9% 100 ML IVPB SCH ×2 (09:05→16:47)
[2022-02-19] MEDS: Spironolactone 25 MG TAB PO SCH (09:06)
[2022-02-19] MEDS: Pregabalin 50 MG CAP PO SCH ×3 (09:06→21:28)
[2022-02-19] MEDS: Finasteride 5 MG TAB PO SCH (09:06)
[2022-02-19] MEDS: Tamsulosin HCl 0.4 MG CAP PO SCH (09:06)
[2022-02-19] MEDS: Milk Of Magnesia 30 ML UDCUP PO SCH ×2 (09:07→21:28)
[2022-02-19] MEDS: Atorvastatin Calcium 10 MG TAB PO SCH ×2 (09:08→21:31)
[2022-02-19] MEDS: Bumetanide 1 MG TAB PO SCH ×2 (09:20→16:46)
[2022-02-19] MEDS: Docusate 100 MG CAP PO SCH (09:20)
[2022-02-19] MEDS: Sodium Hypochlorite 0.25% Solution 480 ML BOT TOP SCH (11:55)
[2022-02-19] MEDS: Emollient 15 oz bottle 450 ML, Triamcinolone Acetonide 200 MG TOP SCH (11:55)
[2022-02-19] MEDS: tiZANidine HCl 4 MG TAB PO PRN (16:45)
[2022-02-19] MEDS: Warfarin Sodium 5 MG TAB PO SCH (16:46)
[2022-02-19] MEDS: Folic Acid 1 MG TAB PO SCH (21:28)
[2022-02-19] MEDS: Thiamine 100 MG TAB PO SCH (21:29)
[2022-02-20] MEDS: Piperacillin/Tazobactam 3.375 GM in Sodium Chloride 0.9% 100 ML IVPB SCH ×3 (01:03→17:22)
[2022-02-20] MEDS: HYDROcodone/Acetaminophen 10/325 mg Tablet PO PRN ×3 (04:55→20:33)
[2022-02-20] MEDS: Levothyroxine Sodium 50 MCG TAB PO SCH (04:56)
[2022-02-20 05:31] LABS: INR-International Normal Ratio 1.6; Prothrombin Time 20.1 sec (12.0-14.7)
[2022-02-20] MEDS: Docusate 100 MG CAP PO SCH (09:32)
[2022-02-20] MEDS: Tamsulosin HCl 0.4 MG CAP PO SCH (09:32)
[2022-02-20] MEDS: Pregabalin 50 MG CAP PO SCH ×3 (09:32→20:34)
[2022-02-20] MEDS: Spironolactone 25 MG TAB PO SCH (09:32)
[2022-02-20] MEDS: Finasteride 5 MG TAB PO SCH (09:32)
[2022-02-20] MEDS: tiZANidine HCl 4 MG TAB PO PRN ×2 (09:32→17:22)
[2022-02-20] MEDS: Bumetanide 1 MG TAB PO SCH ×2 (09:42→17:23)
[2022-02-20] MEDS: Emollient 15 oz bottle 450 ML, Triamcinolone Acetonide 200 MG TOP SCH (14:38)
[2022-02-20] MEDS: Sodium Hypochlorite 0.25% Solution 480 ML BOT TOP SCH (14:38)
[2022-02-20] MEDS: Warfarin Sodium 5 MG TAB PO SCH (17:23)
[2022-02-20] MEDS: Thiamine 100 MG TAB PO SCH (20:32)
[2022-02-20] MEDS: Folic Acid 1 MG TAB PO SCH (20:32)
[2022-02-20] MEDS: Atorvastatin Calcium 10 MG TAB PO SCH (20:32)
[2022-02-20] MEDS: Milk Of Magnesia 30 ML UDCUP PO SCH (20:32)
[2022-02-21] MEDS: Piperacillin/Tazobactam 3.375 GM in Sodium Chloride 0.9% 100 ML IVPB SCH ×4 (00:53→23:51)
[2022-02-21] MEDS: HYDROcodone/Acetaminophen 10/325 mg Tablet PO PRN ×3 (01:40→18:24)
[2022-02-21] MEDS: Levothyroxine Sodium 50 MCG TAB PO SCH (05:12)
[2022-02-21 05:40] LABS: INR-International Normal Ratio 1.7; Prothrombin Time 20.5 sec (12.0-14.7)
[2022-02-21] MEDS: Pregabalin 50 MG CAP PO SCH ×3 (09:19→21:19)
[2022-02-21] MEDS: Bumetanide 1 MG TAB PO SCH ×2 (09:19→17:55)
[2022-02-21] MEDS: Spironolactone 25 MG TAB PO SCH (09:19)
[2022-02-21] MEDS: Ergocalciferol 1.25 MG(50,000 UNITS) CAP PO SCH (09:19)
[2022-02-21] MEDS: Tamsulosin HCl 0.4 MG CAP PO SCH (09:20)
[2022-02-21] MEDS: Finasteride 5 MG TAB PO SCH (09:20)
[2022-02-21] MEDS: Docusate 100 MG CAP PO SCH (09:20)
[2022-02-21] MEDS: Sodium Hypochlorite 0.25% Solution 480 ML BOT TOP SCH (09:21)
[2022-02-21] MEDS: Emollient 15 oz bottle 450 ML, Triamcinolone Acetonide 200 MG TOP SCH (09:22)
[2022-02-21] MEDS: Warfarin Sodium 5 MG TAB PO SCH (17:55)
[2022-02-21] MEDS: Milk Of Magnesia 30 ML UDCUP PO SCH (21:19)
[2022-02-21] MEDS: Thiamine 100 MG TAB PO SCH (21:20)
[2022-02-21] MEDS: Atorvastatin Calcium 10 MG TAB PO SCH (21:21)
[2022-02-21] MEDS: Folic Acid 1 MG TAB PO SCH (21:21)
[2022-02-22] MEDS: HYDROcodone/Acetaminophen 10/325 mg Tablet PO PRN ×3 (04:13→21:02)
[2022-02-22] MEDS: Levothyroxine Sodium 50 MCG TAB PO SCH (05:25)
[2022-02-22 05:44] LABS: INR-International Normal Ratio 1.9; Prothrombin Time 22.4 sec (12.0-14.7)
[2022-02-22] MEDS: Pregabalin 50 MG CAP PO SCH ×3 (08:21→21:01)
[2022-02-22] MEDS: Spironolactone 25 MG TAB PO SCH (08:22)
[2022-02-22] MEDS: Docusate 100 MG CAP PO SCH (08:23)
[2022-02-22] MEDS: Bumetanide 1 MG TAB PO SCH ×2 (08:23→16:48)
[2022-02-22] MEDS: Finasteride 5 MG TAB PO SCH (08:24)
[2022-02-22] MEDS: Tamsulosin HCl 0.4 MG CAP PO SCH (08:24)
[2022-02-22] MEDS: Piperacillin/Tazobactam 3.375 GM in Sodium Chloride 0.9% 100 ML IVPB SCH ×2 (08:25→16:44)
[2022-02-22] MEDS: Sodium Hypochlorite 0.25% Solution 480 ML BOT TOP SCH (08:28)
[2022-02-22] MEDS: Emollient 15 oz bottle 450 ML, Triamcinolone Acetonide 200 MG TOP SCH (08:29)
[2022-02-22] MEDS: tiZANidine HCl 4 MG TAB PO PRN ×2 (12:32→21:02)
[2022-02-22] MEDS: Warfarin Sodium 5 MG TAB PO SCH (16:48)
[2022-02-22] MEDS: Milk Of Magnesia 30 ML UDCUP PO SCH (21:01)
[2022-02-22] MEDS: Folic Acid 1 MG TAB PO SCH (21:02)
[2022-02-22] MEDS: Atorvastatin Calcium 10 MG TAB PO SCH (21:02)
[2022-02-22] MEDS: Thiamine 100 MG TAB PO SCH (21:02)
[2022-02-23] MEDS: Piperacillin/Tazobactam 3.375 GM in Sodium Chloride 0.9% 100 ML IVPB SCH ×3 (00:50→16:44)
[2022-02-23] MEDS: HYDROcodone/Acetaminophen 10/325 mg Tablet PO PRN ×3 (04:24→20:01)
[2022-02-23] MEDS: Levothyroxine Sodium 50 MCG TAB PO SCH (05:11)
[2022-02-23 05:40] LABS: INR-International Normal Ratio 1.8; Prothrombin Time 21.5 sec (12.0-14.7)
[2022-02-23] MEDS: Spironolactone 25 MG TAB PO SCH (08:22)
[2022-02-23] MEDS: Bumetanide 1 MG TAB PO SCH ×2 (08:22→16:44)
[2022-02-23] MEDS: Docusate 100 MG CAP PO SCH (08:22)
[2022-02-23] MEDS: Tamsulosin HCl 0.4 MG CAP PO SCH (08:22)
[2022-02-23] MEDS: Finasteride 5 MG TAB PO SCH (08:22)
[2022-02-23] MEDS: Pregabalin 50 MG CAP PO SCH ×3 (08:22→20:00)
[2022-02-23] MEDS: tiZANidine HCl 4 MG TAB PO PRN ×2 (08:28→16:49)
[2022-02-23] MEDS: Sodium Hypochlorite 0.25% Solution 480 ML BOT TOP SCH (11:57)
[2022-02-23] MEDS: Emollient 15 oz bottle 450 ML, Triamcinolone Acetonide 200 MG TOP SCH (11:57)
[2022-02-23] MEDS: Warfarin Sodium 5 MG TAB PO SCH (16:44)
[2022-02-23] MEDS: Thiamine 100 MG TAB PO SCH (20:00)
[2022-02-23] MEDS: Atorvastatin Calcium 10 MG TAB PO SCH (20:00)
[2022-02-23] MEDS: Milk Of Magnesia 30 ML UDCUP PO SCH (20:00)
[2022-02-23] MEDS: Folic Acid 1 MG TAB PO SCH (20:00)
[2022-02-24] MEDS: Piperacillin/Tazobactam 3.375 GM in Sodium Chloride 0.9% 100 ML IVPB SCH ×4 (00:37→23:25)
[2022-02-24] MEDS: HYDROcodone/Acetaminophen 10/325 mg Tablet PO PRN ×4 (02:38→21:01)
[2022-02-24 05:48] LABS: INR-International Normal Ratio 2.1; Prothrombin Time 24.4 sec (12.0-14.7)
[2022-02-24] MEDS: Levothyroxine Sodium 50 MCG TAB PO SCH (06:08)
[2022-02-24] MEDS: Polyethylene Glycol 3350 17 GM Packet PO SCH (08:17)
[2022-02-24] MEDS: Docusate 100 MG CAP PO SCH (08:17)
[2022-02-24] MEDS: Tamsulosin HCl 0.4 MG CAP PO SCH (08:17)
[2022-02-24] MEDS: Spironolactone 25 MG TAB PO SCH (08:17)
[2022-02-24] MEDS: Pregabalin 50 MG CAP PO SCH ×3 (08:18→21:01)
[2022-02-24] MEDS: Finasteride 5 MG TAB PO SCH (08:18)
[2022-02-24] MEDS: Bumetanide 1 MG TAB PO SCH ×2 (08:18→16:24)
[2022-02-24] MEDS: Sodium Hypochlorite 0.25% Solution 480 ML BOT TOP SCH (14:03)
[2022-02-24] MEDS: Emollient 15 oz bottle 450 ML, Triamcinolone Acetonide 200 MG TOP SCH (14:03)
[2022-02-24] MEDS: Warfarin Sodium 5 MG TAB PO SCH (16:25)
[2022-02-24] MEDS: Atorvastatin Calcium 10 MG TAB PO SCH (21:01)
[2022-02-24] MEDS: Folic Acid 1 MG TAB PO SCH (21:02)
[2022-02-24] MEDS: Thiamine 100 MG TAB PO SCH (21:02)
[2022-02-24] MEDS: Milk Of Magnesia 30 ML UDCUP PO SCH (21:03)
[2022-02-25] MEDS: HYDROcodone/Acetaminophen 10/325 mg Tablet PO PRN ×3 (03:23→20:01)
[2022-02-25] MEDS: Levothyroxine Sodium 50 MCG TAB PO SCH (05:32)
[2022-02-25 05:46] LABS: Band 8 % (5-11); Eosinophils 6 % (0-10); Hemoglobin 14.6 g/dL (14.0-18.0); Lymphocytes 19 % (21-51); MDiff Complete? YES; Macrocytosis SLIGHT = 6-15 cells (100X) (0-5/hpf); Mean Corpuscular HGB CONC 33.9 g/dL (32.0-36.0); Mean Corpuscular Hemoglobin 34.6 pg (27.0-31.0); Mean Corpuscular Volume 101.9 fl (78.0-98.0); Mean Platelet Volume 6.9 fL (7.4-10.4); Monocytes 18 % (0-10); Neutrophil 49 % (42-75); Platelet Count 187 10x3/uL (130-400); RBC Distribution Width 13.1 % (11.5-14.5); Red Blood Cell (RBC) Count 4.23 mill/uL (4.70-6.10); White Blood Cell (WBC) Count 6.7 10x3/uL (4.8-10.8)
[2022-02-25 05:52] LABS: ALT (SGPT) 14 U/L (8-55); AST (SGOT) 27 U/L (5-34); Albumin 3.8 g/dL (3.5-5.0); Alkaline Phosphatase 98 U/L (40-110); Anion Gap 15 mmol/L (10-20); BUN (Urea Nitrogen) 46 mg/dL (8.4-25.7); Bilirubin, Total 0.9 mg/dL (0.2-1.2); Calc. Creatinine Clearance 111 mL/min (70-130); Calcium 10.1 mg/dL (7.8-10.44); Carbon Dioxide 27 mmol/L (22-29); Chloride 98 mmol/L (98-107); Estimated GFR 56; Globulin 4.3 g/dL (2.4-3.5); Glucose 98 mg/dL (70-105); Protein, Total 8.1 g/dL (6.0-8.3); Sodium 136 mmol/L (136-145)
[2022-02-25] MEDS: Piperacillin/Tazobactam 3.375 GM in Sodium Chloride 0.9% 100 ML IVPB SCH ×3 (08:03→23:36)
[2022-02-25] MEDS: Polyethylene Glycol 3350 17 GM Packet PO SCH (08:04)
[2022-02-25] MEDS: Pregabalin 50 MG CAP PO SCH ×3 (08:05→20:02)
[2022-02-25] MEDS: Tamsulosin HCl 0.4 MG CAP PO SCH (08:06)
[2022-02-25] MEDS: Finasteride 5 MG TAB PO SCH (08:06)
[2022-02-25] MEDS: Bumetanide 1 MG TAB PO SCH (08:06)
[2022-02-25] MEDS: Docusate 100 MG CAP PO SCH (08:06)
[2022-02-25] MEDS: Spironolactone 25 MG TAB PO SCH (08:06)
[2022-02-25] MEDS: Emollient 15 oz bottle 450 ML, Triamcinolone Acetonide 200 MG TOP SCH (08:07)
[2022-02-25] MEDS: Sodium Hypochlorite 0.25% Solution 480 ML BOT TOP SCH (08:07)
[2022-02-25] MEDS: Warfarin Sodium 5 MG TAB PO SCH (17:07)
[2022-02-25] MEDS: Milk Of Magnesia 30 ML UDCUP PO SCH (20:01)
[2022-02-25] MEDS: Thiamine 100 MG TAB PO SCH (20:01)
[2022-02-25] MEDS: Atorvastatin Calcium 10 MG TAB PO SCH (20:01)
[2022-02-25] MEDS: Folic Acid 1 MG TAB PO SCH (20:01)
[2022-02-26] MEDS: HYDROcodone/Acetaminophen 10/325 mg Tablet PO PRN ×3 (03:49→22:21)
[2022-02-26] MEDS: Levothyroxine Sodium 50 MCG TAB PO SCH (05:25)
[2022-02-26 05:27] LABS: INR-International Normal Ratio 2.3; Prothrombin Time 26.7 sec (12.0-14.7)
[2022-02-26] MEDS: Piperacillin/Tazobactam 3.375 GM in Sodium Chloride 0.9% 100 ML IVPB SCH ×3 (08:09→23:34)
[2022-02-26] MEDS: Polyethylene Glycol 3350 17 GM Packet PO SCH (08:16)
[2022-02-26] MEDS: Tamsulosin HCl 0.4 MG CAP PO SCH (08:17)
[2022-02-26] MEDS: Finasteride 5 MG TAB PO SCH (08:17)
[2022-02-26] MEDS: Pregabalin 50 MG CAP PO SCH ×3 (08:17→20:14)
[2022-02-26] MEDS: Docusate 100 MG CAP PO SCH (08:18)
[2022-02-26] MEDS: Spironolactone 25 MG TAB PO SCH (08:18)
[2022-02-26] MEDS: Bumetanide 1 MG TAB PO SCH (08:18)
[2022-02-26] MEDS: tiZANidine HCl 4 MG TAB PO PRN ×2 (08:18→19:40)
[2022-02-26] MEDS: Sodium Hypochlorite 0.25% Solution 480 ML BOT TOP SCH (08:19)
[2022-02-26] MEDS: Emollient 15 oz bottle 450 ML, Triamcinolone Acetonide 200 MG TOP SCH (08:20)
[2022-02-26] MEDS: Warfarin Sodium 5 MG TAB PO SCH (17:33)
[2022-02-26] MEDS: Atorvastatin Calcium 10 MG TAB PO SCH (20:13)
[2022-02-26] MEDS: Thiamine 100 MG TAB PO SCH (20:15)
[2022-02-26] MEDS: Folic Acid 1 MG TAB PO SCH (20:15)
[2022-02-26] MEDS: Milk Of Magnesia 30 ML UDCUP PO SCH (20:58)
[2022-02-26] MEDS: Clotrimazole 1% Cream 15 GM TUBE TOP SCH (21:02)
[2022-02-27] MEDS: Levothyroxine Sodium 50 MCG TAB PO SCH (05:04)
[2022-02-27] MEDS: HYDROcodone/Acetaminophen 10/325 mg Tablet PO PRN ×3 (05:04→20:46)
[2022-02-27 06:16] LABS: INR-International Normal Ratio 2.2; Prothrombin Time 25.4 sec (12.0-14.7)
[2022-02-27] MEDS: Pregabalin 50 MG CAP PO SCH ×3 (08:07→20:05)
[2022-02-27] MEDS: Piperacillin/Tazobactam 3.375 GM in Sodium Chloride 0.9% 100 ML IVPB SCH ×3 (08:07→23:02)
[2022-02-27] MEDS: Tamsulosin HCl 0.4 MG CAP PO SCH (08:12)
[2022-02-27] MEDS: Finasteride 5 MG TAB PO SCH (08:12)
[2022-02-27] MEDS: Spironolactone 25 MG TAB PO SCH (08:12)
[2022-02-27] MEDS: Docusate 100 MG CAP PO SCH (08:12)
[2022-02-27] MEDS: Bumetanide 1 MG TAB PO SCH (08:12)
[2022-02-27] MEDS: Polyethylene Glycol 3350 17 GM Packet PO SCH (08:12)
[2022-02-27] MEDS: Sodium Hypochlorite 0.25% Solution 480 ML BOT TOP SCH (08:30)
[2022-02-27] MEDS: Emollient 15 oz bottle 450 ML, Triamcinolone Acetonide 200 MG TOP SCH (08:30)
[2022-02-27] MEDS: Clotrimazole 1% Cream 15 GM TUBE TOP SCH ×2 (08:39→20:07)
[2022-02-27] MEDS: tiZANidine HCl 4 MG TAB PO PRN ×2 (15:09→22:49)
[2022-02-27] MEDS: Warfarin Sodium 5 MG TAB PO SCH (16:52)
[2022-02-27] MEDS: Folic Acid 1 MG TAB PO SCH (20:05)
[2022-02-27] MEDS: Thiamine 100 MG TAB PO SCH (20:05)
[2022-02-27] MEDS: Atorvastatin Calcium 10 MG TAB PO SCH (20:05)
[2022-02-27] MEDS: Milk Of Magnesia 30 ML UDCUP PO SCH (20:05)
[2022-02-28 05:22] LABS: INR-International Normal Ratio 2.6; Prothrombin Time 28.8 sec (12.0-14.7)
[2022-02-28 05:30] LABS: Anion Gap 13 mmol/L (10-20); BUN (Urea Nitrogen) 42 mg/dL (8.4-25.7); Calc. Creatinine Clearance 136 mL/min (70-130); Calcium 9.6 mg/dL (7.8-10.44); Carbon Dioxide 23 mmol/L (22-29); Chloride 102 mmol/L (98-107); Estimated GFR 71; Glucose 114 mg/dL (70-105); Potassium 4.4 mmol/L (3.5-5.1); Sodium 134 mmol/L (136-145)
[2022-02-28] MEDS: Levothyroxine Sodium 50 MCG TAB PO SCH (06:11)
[2022-02-28] MEDS: HYDROcodone/Acetaminophen 10/325 mg Tablet PO PRN ×3 (06:11→18:03)
[2022-02-28] MEDS: Polyethylene Glycol 3350 17 GM Packet PO SCH (08:30)
[2022-02-28] MEDS: Piperacillin/Tazobactam 3.375 GM in Sodium Chloride 0.9% 100 ML IVPB SCH ×2 (08:30→16:45)
[2022-02-28] MEDS: Docusate 100 MG CAP PO SCH (08:30)
[2022-02-28] MEDS: Spironolactone 25 MG TAB PO SCH (08:30)
[2022-02-28] MEDS: Pregabalin 50 MG CAP PO SCH ×3 (08:30→20:17)
[2022-02-28] MEDS: Finasteride 5 MG TAB PO SCH (08:31)
[2022-02-28] MEDS: Ergocalciferol 1.25 MG(50,000 UNITS) CAP PO SCH (08:31)
[2022-02-28] MEDS: Bumetanide 1 MG TAB PO SCH (08:31)
[2022-02-28] MEDS: Tamsulosin HCl 0.4 MG CAP PO SCH (08:31)
[2022-02-28] MEDS: Clotrimazole 1% Cream 15 GM TUBE TOP SCH ×2 (08:32→20:19)
[2022-02-28] MEDS: Emollient 15 oz bottle 450 ML, Triamcinolone Acetonide 200 MG TOP SCH (12:07)
[2022-02-28] MEDS: Sodium Hypochlorite 0.25% Solution 480 ML BOT TOP SCH (12:07)
[2022-02-28] MEDS: tiZANidine HCl 4 MG TAB PO PRN (14:49)
[2022-02-28] MEDS: Warfarin Sodium 5 MG TAB PO SCH (16:46)
[2022-02-28] MEDS: Milk Of Magnesia 30 ML UDCUP PO SCH (20:17)
[2022-02-28] MEDS: Atorvastatin Calcium 10 MG TAB PO SCH (20:17)
[2022-02-28] MEDS: Thiamine 100 MG TAB PO SCH (20:18)
[2022-02-28] MEDS: Folic Acid 1 MG TAB PO SCH (20:18)
[2022-03-01] MEDS: Piperacillin/Tazobactam 3.375 GM in Sodium Chloride 0.9% 100 ML IVPB SCH ×3 (00:07→17:14)
[2022-03-01] MEDS: HYDROcodone/Acetaminophen 10/325 mg Tablet PO PRN ×4 (00:07→21:49)
[2022-03-01 05:31] LABS: INR-International Normal Ratio 2.3; Prothrombin Time 26.4 sec (12.0-14.7)
[2022-03-01] MEDS: Levothyroxine Sodium 50 MCG TAB PO SCH (05:31)
[2022-03-01] MEDS: Polyethylene Glycol 3350 17 GM Packet PO SCH (08:45)
[2022-03-01] MEDS: Spironolactone 25 MG TAB PO SCH (08:45)
[2022-03-01] MEDS: Pregabalin 50 MG CAP PO SCH ×3 (08:46→21:45)
[2022-03-01] MEDS: Docusate 100 MG CAP PO SCH (08:46)
[2022-03-01] MEDS: Finasteride 5 MG TAB PO SCH (08:47)
[2022-03-01] MEDS: Tamsulosin HCl 0.4 MG CAP PO SCH (08:47)
[2022-03-01] MEDS: Clotrimazole 1% Cream 15 GM TUBE TOP SCH ×2 (08:47→21:51)
[2022-03-01] MEDS: Bumetanide 1 MG TAB PO SCH (08:47)
[2022-03-01] MEDS: Emollient 15 oz bottle 450 ML, Triamcinolone Acetonide 200 MG TOP SCH (11:55)
[2022-03-01] MEDS: Sodium Hypochlorite 0.25% Solution 480 ML BOT TOP SCH (11:55)
[2022-03-01] MEDS: tiZANidine HCl 4 MG TAB PO PRN (15:28)
[2022-03-01] MEDS: Warfarin Sodium 5 MG TAB PO SCH (17:16)
[2022-03-01] MEDS: Atorvastatin Calcium 10 MG TAB PO SCH (21:44)
[2022-03-01] MEDS: Thiamine 100 MG TAB PO SCH (21:44)
[2022-03-01] MEDS: Milk Of Magnesia 30 ML UDCUP PO SCH (21:44)
[2022-03-01] MEDS: Folic Acid 1 MG TAB PO SCH (21:44)
[2022-03-02] MEDS: Piperacillin/Tazobactam 3.375 GM in Sodium Chloride 0.9% 100 ML IVPB SCH ×3 (00:09→17:11)
[2022-03-02] MEDS: Levothyroxine Sodium 50 MCG TAB PO SCH (05:21)
[2022-03-02 05:29] LABS: INR-International Normal Ratio 2.4; Prothrombin Time 27.3 sec (12.0-14.7)
[2022-03-02] MEDS: HYDROcodone/Acetaminophen 10/325 mg Tablet PO PRN ×2 (05:38→18:36)
[2022-03-02] MEDS: Finasteride 5 MG TAB PO SCH (08:21)
[2022-03-02] MEDS: Docusate 100 MG CAP PO SCH (08:21)
[2022-03-02] MEDS: Pregabalin 50 MG CAP PO SCH ×3 (08:21→21:05)
[2022-03-02] MEDS: Spironolactone 25 MG TAB PO SCH (08:22)
[2022-03-02] MEDS: Tamsulosin HCl 0.4 MG CAP PO SCH (08:22)
[2022-03-02] MEDS: Bumetanide 1 MG TAB PO SCH (08:22)
[2022-03-02] MEDS: Polyethylene Glycol 3350 17 GM Packet PO SCH (08:22)
[2022-03-02] MEDS: Clotrimazole 1% Cream 15 GM TUBE TOP SCH ×2 (08:23→21:05)
[2022-03-02] MEDS: Warfarin Sodium 5 MG TAB PO SCH (17:12)
[2022-03-02] MEDS: Sodium Hypochlorite 0.25% Solution 480 ML BOT TOP SCH ×2 (17:12→18:00)
[2022-03-02] MEDS: Emollient 15 oz bottle 450 ML, Triamcinolone Acetonide 200 MG TOP SCH ×2 (17:12→18:00)
[2022-03-02] MEDS: Thiamine 100 MG TAB PO SCH (21:05)
[2022-03-02] MEDS: Folic Acid 1 MG TAB PO SCH (21:05)
[2022-03-02] MEDS: Atorvastatin Calcium 10 MG TAB PO SCH (21:05)
[2022-03-02] MEDS: Milk Of Magnesia 30 ML UDCUP PO SCH (21:06)
[2022-03-02] MEDS: tiZANidine HCl 4 MG TAB PO PRN (21:08)
[2022-03-03] MEDS: Piperacillin/Tazobactam 3.375 GM in Sodium Chloride 0.9% 100 ML IVPB SCH ×4 (00:31→23:45)
[2022-03-03] MEDS: HYDROcodone/Acetaminophen 10/325 mg Tablet PO PRN ×4 (01:17→23:49)
[2022-03-03] MEDS: tiZANidine HCl 4 MG TAB PO PRN ×2 (04:59→20:23)
[2022-03-03] MEDS: Levothyroxine Sodium 50 MCG TAB PO SCH (04:59)
[2022-03-03 05:36] LABS: Anion Gap 17 mmol/L (10-20); BUN (Urea Nitrogen) 43 mg/dL (8.4-25.7); Calc. Creatinine Clearance 131 mL/min (70-130); Calcium 9.8 mg/dL (7.8-10.44); Carbon Dioxide 19 mmol/L (22-29); Chloride 101 mmol/L (98-107); Estimated GFR 69; Glucose 105 mg/dL (70-105); Potassium 4.9 mmol/L (3.5-5.1); Sodium 132 mmol/L (136-145)
[2022-03-03] MEDS: Docusate 100 MG CAP PO SCH (08:46)
[2022-03-03] MEDS: Bumetanide 1 MG TAB PO SCH (08:47)
[2022-03-03] MEDS: Finasteride 5 MG TAB PO SCH (08:47)
[2022-03-03] MEDS: Pregabalin 50 MG CAP PO SCH ×3 (08:47→20:22)
[2022-03-03] MEDS: Spironolactone 25 MG TAB PO SCH (08:47)
[2022-03-03] MEDS: Tamsulosin HCl 0.4 MG CAP PO SCH (08:47)
[2022-03-03] MEDS: Clotrimazole 1% Cream 15 GM TUBE TOP SCH ×2 (08:48→20:23)
[2022-03-03] MEDS: Polyethylene Glycol 3350 17 GM Packet PO SCH (08:48)
[2022-03-03] MEDS: Warfarin Sodium 5 MG TAB PO SCH (17:22)
[2022-03-03] MEDS: Folic Acid 1 MG TAB PO SCH (20:23)
[2022-03-03] MEDS: Atorvastatin Calcium 10 MG TAB PO SCH (20:23)
[2022-03-03] MEDS: Thiamine 100 MG TAB PO SCH (20:23)
[2022-03-03] MEDS: Milk Of Magnesia 30 ML UDCUP PO SCH (20:23)
[2022-03-03] MEDS: Albuterol Sulfate 2.5 mg/3 ml Neb NEB PRN (23:53)
[2022-03-04] MEDS: HYDROcodone/Acetaminophen 10/325 mg Tablet PO PRN ×3 (05:41→20:33)
[2022-03-04] MEDS: Levothyroxine Sodium 50 MCG TAB PO SCH (05:41)
[2022-03-04] MEDS: Bumetanide 1 MG TAB PO SCH (08:12)
[2022-03-04] MEDS: Finasteride 5 MG TAB PO SCH (08:12)
[2022-03-04] MEDS: Piperacillin/Tazobactam 3.375 GM in Sodium Chloride 0.9% 100 ML IVPB SCH ×3 (08:12→23:01)
[2022-03-04] MEDS: Pregabalin 50 MG CAP PO SCH ×3 (08:13→20:32)
[2022-03-04] MEDS: Tamsulosin HCl 0.4 MG CAP PO SCH (08:13)
[2022-03-04] MEDS: Spironolactone 25 MG TAB PO SCH (08:13)
[2022-03-04] MEDS: Docusate 100 MG CAP PO SCH (08:13)
[2022-03-04] MEDS: Sodium Hypochlorite 0.25% Solution 480 ML BOT TOP SCH (08:14)
[2022-03-04] MEDS: Emollient 15 oz bottle 450 ML, Triamcinolone Acetonide 200 MG TOP SCH (08:15)
[2022-03-04] MEDS: Polyethylene Glycol 3350 17 GM Packet PO SCH (08:17)
[2022-03-04] MEDS: Clotrimazole 1% Cream 15 GM TUBE TOP SCH ×2 (08:17→20:36)
[2022-03-04] MEDS: Albuterol Sulfate 2.5 mg/3 ml Neb NEB PRN (08:30)
[2022-03-04] MEDS: Albuterol 200 PUFF (6.7GM INHALER) INH PRN (15:34)
[2022-03-04] MEDS: Warfarin Sodium 5 MG TAB PO SCH (16:55)
[2022-03-04] MEDS: Milk Of Magnesia 30 ML UDCUP PO SCH (20:30)
[2022-03-04] MEDS: Thiamine 100 MG TAB PO SCH (20:31)
[2022-03-04] MEDS: Atorvastatin Calcium 10 MG TAB PO SCH (20:31)
[2022-03-04] MEDS: Folic Acid 1 MG TAB PO SCH (20:31)
[2022-03-04] MEDS: Albuterol Sulfate 2.5 mg/3 ml Neb NEB SCH (20:31)
[2022-03-04] MEDS: tiZANidine HCl 4 MG TAB PO PRN (23:01)
[2022-03-05] MEDS: HYDROcodone/Acetaminophen 10/325 mg Tablet PO PRN ×4 (02:22→21:54)
[2022-03-05 05:16] LABS: INR-International Normal Ratio 2.9; Prothrombin Time 31.9 sec (12.0-14.7)
[2022-03-05] MEDS: Albuterol Sulfate 2.5 mg/3 ml Neb NEB PRN ×2 (05:37→16:15)
[2022-03-05] MEDS: Levothyroxine Sodium 50 MCG TAB PO SCH (05:39)
[2022-03-05] MEDS: Piperacillin/Tazobactam 3.375 GM in Sodium Chloride 0.9% 100 ML IVPB SCH ×3 (08:15→23:42)
[2022-03-05] MEDS: Polyethylene Glycol 3350 17 GM Packet PO SCH (08:18)
[2022-03-05] MEDS: Spironolactone 25 MG TAB PO SCH (08:19)
[2022-03-05] MEDS: Pregabalin 50 MG CAP PO SCH ×3 (08:19→20:11)
[2022-03-05] MEDS: Bumetanide 1 MG TAB PO SCH (08:20)
[2022-03-05] MEDS: Tamsulosin HCl 0.4 MG CAP PO SCH (08:20)
[2022-03-05] MEDS: Docusate 100 MG CAP PO SCH (08:20)
[2022-03-05] MEDS: Finasteride 5 MG TAB PO SCH (08:21)
[2022-03-05] MEDS: Sodium Hypochlorite 0.25% Solution 480 ML BOT TOP SCH (08:22)
[2022-03-05] MEDS: Emollient 15 oz bottle 450 ML, Triamcinolone Acetonide 200 MG TOP SCH (08:23)
[2022-03-05] MEDS: Clotrimazole 1% Cream 15 GM TUBE TOP SCH ×2 (08:23→20:00)
[2022-03-05] MEDS: Albuterol Sulfate 2.5 mg/3 ml Neb NEB SCH ×2 (10:04→20:10)
[2022-03-05] MEDS: Warfarin Sodium 5 MG TAB PO SCH (18:20)
[2022-03-05] MEDS ORDERED: Warfarin Sodium 5 MG TAB PO SCH (18:30)
[2022-03-05] MEDS: Milk Of Magnesia 30 ML UDCUP PO SCH (20:10)
[2022-03-05] MEDS: Atorvastatin Calcium 10 MG TAB PO SCH (20:11)
[2022-03-05] MEDS: Thiamine 100 MG TAB PO SCH (20:11)
[2022-03-05] MEDS: Folic Acid 1 MG TAB PO SCH (20:11)
[2022-03-06] MEDS: HYDROcodone/Acetaminophen 10/325 mg Tablet PO PRN ×3 (04:05→23:14)
[2022-03-06] MEDS: tiZANidine HCl 4 MG TAB PO PRN ×2 (04:31→23:14)
[2022-03-06] MEDS: Levothyroxine Sodium 50 MCG TAB PO SCH (05:21)
[2022-03-06] MEDS: Albuterol 200 PUFF (6.7GM INHALER) INH PRN ×2 (05:24→17:11)
[2022-03-06 05:40] LABS: INR-International Normal Ratio 2.6; Prothrombin Time 29.4 sec (12.0-14.7)
[2022-03-06] MEDS: Piperacillin/Tazobactam 3.375 GM in Sodium Chloride 0.9% 100 ML IVPB SCH ×3 (08:24→23:15)
[2022-03-06] MEDS: Albuterol Sulfate 2.5 mg/3 ml Neb NEB SCH ×2 (08:24→21:17)
[2022-03-06] MEDS: Bumetanide 1 MG TAB PO SCH (08:26)
[2022-03-06] MEDS: Finasteride 5 MG TAB PO SCH (08:26)
[2022-03-06] MEDS: Spironolactone 25 MG TAB PO SCH (08:26)
[2022-03-06] MEDS: Tamsulosin HCl 0.4 MG CAP PO SCH (08:26)
[2022-03-06] MEDS: Docusate 100 MG CAP PO SCH (08:26)
[2022-03-06] MEDS: Clotrimazole 1% Cream 15 GM TUBE TOP SCH ×2 (08:27→23:00)
[2022-03-06] MEDS: Sodium Hypochlorite 0.25% Solution 480 ML BOT TOP SCH (08:27)
[2022-03-06] MEDS: Emollient 15 oz bottle 450 ML, Triamcinolone Acetonide 200 MG TOP SCH (08:28)
[2022-03-06] MEDS: Pregabalin 50 MG CAP PO SCH ×3 (08:28→21:17)
[2022-03-06] MEDS: Polyethylene Glycol 3350 17 GM Packet PO SCH (08:29)
[2022-03-06] MEDS: Guaifenesin DM 100-10/5 ML UDCUP PO PRN (16:08)
[2022-03-06] MEDS ORDERED: Warfarin Sodium 5 MG TAB PO SCH (17:00)
[2022-03-06] MEDS: Warfarin Sodium 5 MG TAB PO SCH (17:05)
[2022-03-06] MEDS: Folic Acid 1 MG TAB PO SCH (21:16)
[2022-03-06] MEDS: Thiamine 100 MG TAB PO SCH (21:16)
[2022-03-06] MEDS: Atorvastatin Calcium 10 MG TAB PO SCH (21:16)
[2022-03-06] MEDS: Milk Of Magnesia 30 ML UDCUP PO SCH (23:00)
[2022-03-07] MEDS: HYDROcodone/Acetaminophen 10/325 mg Tablet PO PRN ×3 (04:55→23:51)
[2022-03-07] MEDS: Levothyroxine Sodium 50 MCG TAB PO SCH (04:56)
[2022-03-07] MEDS: Guaifenesin DM 100-10/5 ML UDCUP PO PRN (05:13)
[2022-03-07 05:31] LABS: INR-International Normal Ratio 2.5; Prothrombin Time 27.9 sec (12.0-14.7)
[2022-03-07] MEDS: Piperacillin/Tazobactam 3.375 GM in Sodium Chloride 0.9% 100 ML IVPB SCH ×3 (07:45→23:50)
[2022-03-07] MEDS: Spironolactone 25 MG TAB PO SCH (07:46)
[2022-03-07] MEDS: Sodium Hypochlorite 0.25% Solution 480 ML BOT TOP SCH (07:47)
[2022-03-07] MEDS: Emollient 15 oz bottle 450 ML, Triamcinolone Acetonide 200 MG TOP SCH (07:47)
[2022-03-07] MEDS: Clotrimazole 1% Cream 15 GM TUBE TOP SCH ×2 (07:48→20:42)
[2022-03-07] MEDS: Albuterol Sulfate 2.5 mg/3 ml Neb NEB SCH ×2 (07:57→20:38)
[2022-03-07] MEDS: Polyethylene Glycol 3350 17 GM Packet PO SCH (07:58)
[2022-03-07] MEDS: Finasteride 5 MG TAB PO SCH (07:59)
[2022-03-07] MEDS: Ergocalciferol 1.25 MG(50,000 UNITS) CAP PO SCH (07:59)
[2022-03-07] MEDS: Docusate 100 MG CAP PO SCH (08:00)
[2022-03-07] MEDS: Bumetanide 1 MG TAB PO SCH (08:00)
[2022-03-07] MEDS: Pregabalin 50 MG CAP PO SCH ×3 (08:01→20:37)
[2022-03-07] MEDS: Tamsulosin HCl 0.4 MG CAP PO SCH (08:01)
[2022-03-07] MEDS: Warfarin Sodium 5 MG TAB PO SCH (17:31)
[2022-03-07] MEDS: Milk Of Magnesia 30 ML UDCUP PO SCH (20:37)
[2022-03-07] MEDS: Folic Acid 1 MG TAB PO SCH (20:38)
[2022-03-07] MEDS: Atorvastatin Calcium 10 MG TAB PO SCH (20:38)
[2022-03-07] MEDS: Thiamine 100 MG TAB PO SCH (20:38)
[2022-03-07] MEDS: tiZANidine HCl 4 MG TAB PO PRN (23:51)
[2022-03-08 05:23] LABS: INR-International Normal Ratio 2.4; Prothrombin Time 27.6 sec (12.0-14.7)
[2022-03-08] MEDS: HYDROcodone/Acetaminophen 10/325 mg Tablet PO PRN ×3 (05:44→17:55)
[2022-03-08] MEDS: Levothyroxine Sodium 50 MCG TAB PO SCH (05:45)
[2022-03-08] MEDS: Docusate 100 MG CAP PO SCH (07:56)
[2022-03-08] MEDS: Bumetanide 1 MG TAB PO SCH ×2 (07:56→20:28)
[2022-03-08] MEDS: Pregabalin 50 MG CAP PO SCH ×3 (07:56→20:28)
[2022-03-08] MEDS: Finasteride 5 MG TAB PO SCH (07:56)
[2022-03-08] MEDS: Albuterol Sulfate 2.5 mg/3 ml Neb NEB SCH ×2 (07:57→20:27)
[2022-03-08] MEDS: Tamsulosin HCl 0.4 MG CAP PO SCH (07:57)
[2022-03-08] MEDS: Spironolactone 25 MG TAB PO SCH (07:57)
[2022-03-08] MEDS: Polyethylene Glycol 3350 17 GM Packet PO SCH (07:57)
[2022-03-08] MEDS: Piperacillin/Tazobactam 3.375 GM in Sodium Chloride 0.9% 100 ML IVPB SCH ×2 (07:57→16:03)
[2022-03-08] MEDS: Clotrimazole 1% Cream 15 GM TUBE TOP SCH ×2 (07:58→20:29)
[2022-03-08] MEDS: Guaifenesin DM 100-10/5 ML UDCUP PO PRN (08:04)
[2022-03-08 09:43] LABS: Anion Gap 17 mmol/L (10-20); BUN (Urea Nitrogen) 35 mg/dL (8.4-25.7); Calc. Creatinine Clearance 150 mL/min (70-130); Calcium 9.7 mg/dL (7.8-10.44); Carbon Dioxide 25 mmol/L (22-29); Chloride 100 mmol/L (98-107); Estimated GFR 81; Glucose 145 mg/dL (70-105); Potassium 4.8 mmol/L (3.5-5.1); Sodium 137 mmol/L (136-145)
[2022-03-08 10:54] LABS: Band 3 % (5-11); Eosinophils 8 % (0-10); Lymphocytes 9 % (21-51); MDiff Complete? YES; Manual Diff?? YES; Mean Corpuscular HGB CONC 33.7 g/dL (32.0-36.0); Mean Corpuscular Hemoglobin 34.1 pg (27.0-31.0); Mean Corpuscular Volume 101.3 fl (78.0-98.0); Mean Platelet Volume 7.7 fL (7.4-10.4); Monocytes 6 % (0-10); Neutrophil 67 % (42-75); Platelet Count 169 10x3/uL (130-400); Platelet Morphology Comment Appears Adequate; RBC Distribution Width 13.5 % (11.5-14.5); RBC Morphology Normal; Reactive Lymphocytes 7 % (0-10); White Blood Cell (WBC) Count 6.4 10x3/uL (4.8-10.8)
[2022-03-08] MEDS: Emollient 15 oz bottle 450 ML, Triamcinolone Acetonide 200 MG TOP SCH (11:53)
[2022-03-08] MEDS: Sodium Hypochlorite 0.25% Solution 480 ML BOT TOP SCH (12:03)
[2022-03-08] MEDS: Albuterol Sulfate 2.5 mg/3 ml Neb NEB PRN (16:02)
[2022-03-08] MEDS: tiZANidine HCl 4 MG TAB PO PRN (16:02)
[2022-03-08] MEDS: Warfarin Sodium 5 MG TAB PO SCH (17:55)
[2022-03-08] MEDS: Atorvastatin Calcium 10 MG TAB PO SCH (20:28)
[2022-03-08] MEDS: Thiamine 100 MG TAB PO SCH (20:28)
[2022-03-08] MEDS: Folic Acid 1 MG TAB PO SCH (20:28)
[2022-03-08] MEDS: Milk Of Magnesia 30 ML UDCUP PO SCH (20:29)
[2022-03-09] MEDS: tiZANidine HCl 4 MG TAB PO PRN (00:32)
[2022-03-09] MEDS: HYDROcodone/Acetaminophen 10/325 mg Tablet PO PRN ×3 (00:32→15:14)
[2022-03-09] MEDS: Piperacillin/Tazobactam 3.375 GM in Sodium Chloride 0.9% 100 ML IVPB SCH ×3 (00:33→15:15)
[2022-03-09] MEDS: Levothyroxine Sodium 50 MCG TAB PO SCH (04:59)
[2022-03-09 06:09] LABS: INR-International Normal Ratio 2.2; Prothrombin Time 24.9 sec (12.0-14.7)
[2022-03-09] MEDS: Polyethylene Glycol 3350 17 GM Packet PO SCH (08:11)
[2022-03-09] MEDS: Albuterol Sulfate 2.5 mg/3 ml Neb NEB SCH ×2 (08:12→20:45)
[2022-03-09] MEDS: Bumetanide 1 MG TAB PO SCH (08:13)
[2022-03-09] MEDS: Finasteride 5 MG TAB PO SCH (08:13)
[2022-03-09] MEDS: Pregabalin 50 MG CAP PO SCH ×3 (08:13→20:44)
[2022-03-09] MEDS: Tamsulosin HCl 0.4 MG CAP PO SCH (08:13)
[2022-03-09] MEDS: Spironolactone 25 MG TAB PO SCH (08:15)
[2022-03-09] MEDS: Docusate 100 MG CAP PO SCH (08:15)
[2022-03-09] MEDS: Sodium Hypochlorite 0.25% Solution 480 ML BOT TOP SCH (08:17)
[2022-03-09] MEDS: Clotrimazole 1% Cream 15 GM TUBE TOP SCH ×2 (08:18→20:52)
[2022-03-09] MEDS: Emollient 15 oz bottle 450 ML, Triamcinolone Acetonide 200 MG TOP SCH (08:18)
[2022-03-09] MEDS: Warfarin Sodium 5 MG TAB PO SCH (16:33)
[2022-03-09] MEDS: Albuterol 200 PUFF (6.7GM INHALER) INH PRN (18:10)
[2022-03-09] MEDS: Atorvastatin Calcium 10 MG TAB PO SCH (20:44)
[2022-03-09] MEDS: Thiamine 100 MG TAB PO SCH (20:44)
[2022-03-09] MEDS: Folic Acid 1 MG TAB PO SCH (20:44)
[2022-03-09] MEDS: Milk Of Magnesia 30 ML UDCUP PO SCH (20:44)
[2022-03-09] MEDS ORDERED: Bumetanide 1 MG TAB PO SCH (21:00)
[2022-03-10] MEDS: Piperacillin/Tazobactam 3.375 GM in Sodium Chloride 0.9% 100 ML IVPB SCH ×4 (00:18→23:22)
[2022-03-10] MEDS: Guaifenesin DM 100-10/5 ML UDCUP PO PRN (00:18)
[2022-03-10] MEDS: tiZANidine HCl 4 MG TAB PO PRN ×2 (00:19→23:23)
[2022-03-10] MEDS: HYDROcodone/Acetaminophen 10/325 mg Tablet PO PRN ×4 (00:19→23:23)
[2022-03-10] MEDS: Bumetanide 1 MG TAB PO SCH ×2 (05:27→16:37)
[2022-03-10] MEDS: Levothyroxine Sodium 50 MCG TAB PO SCH (05:27)
[2022-03-10 05:28] LABS: INR-International Normal Ratio 2.3; Prothrombin Time 26.6 sec (12.0-14.7)
[2022-03-10] MEDS: Finasteride 5 MG TAB PO SCH (08:30)
[2022-03-10] MEDS: Spironolactone 25 MG TAB PO SCH (08:30)
[2022-03-10] MEDS: Polyethylene Glycol 3350 17 GM Packet PO SCH (08:30)
[2022-03-10] MEDS: Albuterol Sulfate 2.5 mg/3 ml Neb NEB SCH ×2 (08:30→21:10)
[2022-03-10] MEDS: Docusate 100 MG CAP PO SCH (08:31)
[2022-03-10] MEDS: Tamsulosin HCl 0.4 MG CAP PO SCH (08:31)
[2022-03-10] MEDS: Pregabalin 50 MG CAP PO SCH ×3 (08:31→21:09)
[2022-03-10] MEDS: Emollient 15 oz bottle 450 ML, Triamcinolone Acetonide 200 MG TOP SCH (08:32)
[2022-03-10] MEDS: Clotrimazole 1% Cream 15 GM TUBE TOP SCH ×2 (08:32→21:09)
[2022-03-10] MEDS: Sodium Hypochlorite 0.25% Solution 480 ML BOT TOP SCH (14:00)
[2022-03-10] MEDS: Warfarin Sodium 5 MG TAB PO SCH (16:37)
[2022-03-10] MEDS: Albuterol Sulfate 2.5 mg/3 ml Neb NEB PRN (17:54)
[2022-03-10] MEDS: Folic Acid 1 MG TAB PO SCH (21:09)
[2022-03-10] MEDS: Milk Of Magnesia 30 ML UDCUP PO SCH (21:10)
[2022-03-10] MEDS: Atorvastatin Calcium 10 MG TAB PO SCH (21:10)
[2022-03-10] MEDS: Thiamine 100 MG TAB PO SCH (21:10)
[2022-03-11] MEDS: Bumetanide 1 MG TAB PO SCH ×2 (05:08→17:02)
[2022-03-11] MEDS: Levothyroxine Sodium 50 MCG TAB PO SCH (05:08)
[2022-03-11] MEDS: HYDROcodone/Acetaminophen 10/325 mg Tablet PO PRN ×3 (05:08→23:16)
[2022-03-11 06:21] LABS: INR-International Normal Ratio 2.1; Prothrombin Time 24.7 sec (12.0-14.7)
[2022-03-11] MEDS: Piperacillin/Tazobactam 3.375 GM in Sodium Chloride 0.9% 100 ML IVPB SCH ×3 (08:05→23:19)
[2022-03-11] MEDS: Polyethylene Glycol 3350 17 GM Packet PO SCH (08:07)
[2022-03-11] MEDS: Pregabalin 50 MG CAP PO SCH ×3 (08:08→21:19)
[2022-03-11] MEDS: Albuterol Sulfate 2.5 mg/3 ml Neb NEB SCH ×2 (08:08→21:17)
[2022-03-11] MEDS: Finasteride 5 MG TAB PO SCH (08:09)
[2022-03-11] MEDS: Spironolactone 25 MG TAB PO SCH (08:09)
[2022-03-11] MEDS: Docusate 100 MG CAP PO SCH (08:09)
[2022-03-11] MEDS: Tamsulosin HCl 0.4 MG CAP PO SCH (08:09)
[2022-03-11] MEDS: Sodium Hypochlorite 0.25% Solution 480 ML BOT TOP SCH (08:12)
[2022-03-11] MEDS: Emollient 15 oz bottle 450 ML, Triamcinolone Acetonide 200 MG TOP SCH (08:12)
[2022-03-11] MEDS: Clotrimazole 1% Cream 15 GM TUBE TOP SCH ×2 (08:13→21:20)
[2022-03-11] MEDS: Warfarin Sodium 5 MG TAB PO SCH (17:03)
[2022-03-11] MEDS: Thiamine 100 MG TAB PO SCH (21:20)
[2022-03-11] MEDS: Folic Acid 1 MG TAB PO SCH (21:20)
[2022-03-11] MEDS: Atorvastatin Calcium 10 MG TAB PO SCH (21:20)
[2022-03-11] MEDS: Milk Of Magnesia 30 ML UDCUP PO SCH (21:20)
[2022-03-11] MEDS: Guaifenesin DM 100-10/5 ML UDCUP PO PRN (21:21)
[2022-03-11] MEDS: tiZANidine HCl 4 MG TAB PO PRN (23:16)
[2022-03-12] MEDS: Levothyroxine Sodium 50 MCG TAB PO SCH (05:12)
[2022-03-12] MEDS: HYDROcodone/Acetaminophen 10/325 mg Tablet PO PRN ×3 (05:12→23:27)
[2022-03-12] MEDS: Bumetanide 1 MG TAB PO SCH ×2 (05:12→17:27)
[2022-03-12 05:24] LABS: INR-International Normal Ratio 2.6; Prothrombin Time 29.3 sec (12.0-14.7)
[2022-03-12] MEDS: Albuterol Sulfate 2.5 mg/3 ml Neb NEB SCH ×2 (08:53→20:01)
[2022-03-12] MEDS: Spironolactone 25 MG TAB PO SCH (08:54)
[2022-03-12] MEDS: Finasteride 5 MG TAB PO SCH (08:54)
[2022-03-12] MEDS: Tamsulosin HCl 0.4 MG CAP PO SCH (08:54)
[2022-03-12] MEDS: Pregabalin 50 MG CAP PO SCH ×3 (08:54→20:04)
[2022-03-12] MEDS: Piperacillin/Tazobactam 3.375 GM in Sodium Chloride 0.9% 100 ML IVPB SCH ×3 (08:55→23:28)
[2022-03-12] MEDS: Clotrimazole 1% Cream 15 GM TUBE TOP SCH ×2 (08:55→20:06)
[2022-03-12] MEDS: Docusate 100 MG CAP PO SCH (08:55)
[2022-03-12] MEDS: Polyethylene Glycol 3350 17 GM Packet PO SCH (08:55)
[2022-03-12] MEDS: Warfarin Sodium 5 MG TAB PO SCH (17:28)
[2022-03-12] MEDS: Emollient 15 oz bottle 450 ML, Triamcinolone Acetonide 200 MG TOP SCH (18:53)
[2022-03-12] MEDS: Sodium Hypochlorite 0.25% Solution 480 ML BOT TOP SCH (18:53)
[2022-03-12] MEDS: Folic Acid 1 MG TAB PO SCH (20:02)
[2022-03-12] MEDS: Milk Of Magnesia 30 ML UDCUP PO SCH (20:02)
[2022-03-12] MEDS: Atorvastatin Calcium 10 MG TAB PO SCH (20:02)
[2022-03-12] MEDS: Thiamine 100 MG TAB PO SCH (20:02)
[2022-03-12] MEDS: tiZANidine HCl 4 MG TAB PO PRN (23:28)
[2022-03-13 05:19] LABS: INR-International Normal Ratio 2.1; Prothrombin Time 24.6 sec (12.0-14.7)
[2022-03-13] MEDS: HYDROcodone/Acetaminophen 10/325 mg Tablet PO PRN ×3 (05:24→22:21)
[2022-03-13] MEDS: Levothyroxine Sodium 50 MCG TAB PO SCH (05:25)
[2022-03-13] MEDS: Bumetanide 1 MG TAB PO SCH ×2 (05:25→18:19)
[2022-03-13] MEDS: Pregabalin 50 MG CAP PO SCH ×3 (08:59→20:17)
[2022-03-13] MEDS: Finasteride 5 MG TAB PO SCH (08:59)
[2022-03-13] MEDS: Docusate 100 MG CAP PO SCH (08:59)
[2022-03-13] MEDS: Spironolactone 25 MG TAB PO SCH (09:00)
[2022-03-13] MEDS: Tamsulosin HCl 0.4 MG CAP PO SCH (09:00)
[2022-03-13] MEDS: Piperacillin/Tazobactam 3.375 GM in Sodium Chloride 0.9% 100 ML IVPB SCH ×3 (09:01→23:25)
[2022-03-13] MEDS: Albuterol Sulfate 2.5 mg/3 ml Neb NEB SCH ×2 (09:01→20:18)
[2022-03-13] MEDS: Clotrimazole 1% Cream 15 GM TUBE TOP SCH ×2 (09:02→20:21)
[2022-03-13] MEDS: Polyethylene Glycol 3350 17 GM Packet PO SCH (09:02)
[2022-03-13] MEDS: Warfarin Sodium 5 MG TAB PO SCH (16:12)
[2022-03-13] MEDS: Sodium Hypochlorite 0.25% Solution 480 ML BOT TOP SCH (17:27)
[2022-03-13] MEDS: Emollient 15 oz bottle 450 ML, Triamcinolone Acetonide 200 MG TOP SCH (17:28)
[2022-03-13] MEDS: Milk Of Magnesia 30 ML UDCUP PO SCH (20:16)
[2022-03-13] MEDS: Thiamine 100 MG TAB PO SCH (20:17)
[2022-03-13] MEDS: Atorvastatin Calcium 10 MG TAB PO SCH (20:17)
[2022-03-13] MEDS: tiZANidine HCl 4 MG TAB PO PRN (20:17)
[2022-03-13] MEDS: Folic Acid 1 MG TAB PO SCH (20:17)
[2022-03-14] MEDS: Bumetanide 1 MG TAB PO SCH ×2 (05:22→17:15)
[2022-03-14] MEDS: Levothyroxine Sodium 50 MCG TAB PO SCH (05:22)
[2022-03-14] MEDS: HYDROcodone/Acetaminophen 10/325 mg Tablet PO PRN ×3 (05:23→23:26)
[2022-03-14 06:20] LABS: INR-International Normal Ratio 2.2
[2022-03-14 06:37] LABS: ALT (SGPT) 14 U/L (8-55); AST (SGOT) 21 U/L (5-34); Albumin 4.1 g/dL (3.5-5.0); Alkaline Phosphatase 122 U/L (40-110); Anion Gap 17 mmol/L (10-20); BUN (Urea Nitrogen) 44 mg/dL (8.4-25.7); Bilirubin, Total 1.1 mg/dL (0.2-1.2); Calc. Creatinine Clearance 118 mL/min (70-130); Carbon Dioxide 26 mmol/L (22-29); Chloride 99 mmol/L (98-107); Estimated GFR 63; Globulin 4.6 g/dL (2.4-3.5); Glucose 125 mg/dL (70-105); Potassium 4.7 mmol/L (3.5-5.1); Protein, Total 8.7 g/dL (6.0-8.3); Sodium 137 mmol/L (136-145)
[2022-03-14 06:48] LABS: #Basophils 0.2 thou/uL (0.0-0.2); #Eosinphils 0.6 thou/uL (0.0-0.7); #Lymphocytes 1.3 thou/uL (1.20-3.40); #Monocytes 0.8 thou/uL (0.11-0.59); #Neutrophils 3.8 thou/uL (1.40-6.50); %Basophils 2.4 % (0.0-1.0); %Eosinophils 8.7 % (0.0-10.0); %Lymphocytes 19.6 % (21.0-51.0); %Monocytes 11.7 % (0.0-10.0); %Neutrophils 57.6 % (42.0-75.0); Hemoglobin 16.1 g/dL (14.0-18.0); Mean Corpuscular HGB CONC 33.7 g/dL (32.0-36.0); Mean Corpuscular Volume 100.9 fl (78.0-98.0); Mean Platelet Volume 7.8 fL (7.4-10.4); Platelet Count 184 10x3/uL (130-400); RBC Distribution Width 12.8 % (11.5-14.5); Red Blood Cell (RBC) Count 4.75 mill/uL (4.70-6.10); White Blood Cell (WBC) Count 6.6 10x3/uL (4.8-10.8)
[2022-03-14] MEDS: Piperacillin/Tazobactam 3.375 GM in Sodium Chloride 0.9% 100 ML IVPB SCH ×3 (08:12→23:26)
[2022-03-14] MEDS: Albuterol Sulfate 2.5 mg/3 ml Neb NEB SCH ×2 (08:13→20:36)
[2022-03-14] MEDS: Polyethylene Glycol 3350 17 GM Packet PO SCH (08:14)
[2022-03-14] MEDS: Docusate 100 MG CAP PO SCH (08:14)
[2022-03-14] MEDS: Pregabalin 50 MG CAP PO SCH ×3 (08:15→20:35)
[2022-03-14] MEDS: Tamsulosin HCl 0.4 MG CAP PO SCH (08:16)
[2022-03-14] MEDS: Ergocalciferol 1.25 MG(50,000 UNITS) CAP PO SCH (08:16)
[2022-03-14] MEDS: Spironolactone 25 MG TAB PO SCH (08:16)
[2022-03-14] MEDS: Finasteride 5 MG TAB PO SCH (08:16)
[2022-03-14] MEDS: Clotrimazole 1% Cream 15 GM TUBE TOP SCH ×2 (08:17→20:37)
[2022-03-14] MEDS: Emollient 15 oz bottle 450 ML, Triamcinolone Acetonide 200 MG TOP SCH (08:17)
[2022-03-14] MEDS: Sodium Hypochlorite 0.25% Solution 480 ML BOT TOP SCH (08:17)
[2022-03-14] MEDS: Warfarin Sodium 5 MG TAB PO SCH (17:16)
[2022-03-14] MEDS: Atorvastatin Calcium 10 MG TAB PO SCH (20:36)
[2022-03-14] MEDS: Thiamine 100 MG TAB PO SCH (20:36)
[2022-03-14] MEDS: Milk Of Magnesia 30 ML UDCUP PO SCH (20:36)
[2022-03-14] MEDS: Guaifenesin DM 100-10/5 ML UDCUP PO PRN (20:36)
[2022-03-14] MEDS: Folic Acid 1 MG TAB PO SCH (20:36)
[2022-03-14] MEDS: tiZANidine HCl 4 MG TAB PO PRN (23:26)
[2022-03-15] MEDS: HYDROcodone/Acetaminophen 10/325 mg Tablet PO PRN ×2 (05:31→15:55)
[2022-03-15] MEDS: Bumetanide 1 MG TAB PO SCH ×2 (05:31→17:22)
[2022-03-15] MEDS: Levothyroxine Sodium 50 MCG TAB PO SCH (05:31)
[2022-03-15] MEDS: Tamsulosin HCl 0.4 MG CAP PO SCH (08:32)
[2022-03-15] MEDS: Finasteride 5 MG TAB PO SCH (08:32)
[2022-03-15] MEDS: Spironolactone 25 MG TAB PO SCH (08:32)
[2022-03-15] MEDS: Pregabalin 50 MG CAP PO SCH ×3 (08:32→21:42)
[2022-03-15] MEDS: Docusate 100 MG CAP PO SCH (08:32)
[2022-03-15] MEDS: Albuterol Sulfate 2.5 mg/3 ml Neb NEB SCH ×2 (08:32→21:44)
[2022-03-15] MEDS: Polyethylene Glycol 3350 17 GM Packet PO SCH (08:33)
[2022-03-15] MEDS: Sodium Hypochlorite 0.25% Solution 480 ML BOT TOP SCH (08:33)
[2022-03-15] MEDS: Piperacillin/Tazobactam 3.375 GM in Sodium Chloride 0.9% 100 ML IVPB SCH ×2 (08:33→15:52)
[2022-03-15] MEDS: Emollient 15 oz bottle 450 ML, Triamcinolone Acetonide 200 MG TOP SCH (08:34)
[2022-03-15] MEDS: Clotrimazole 1% Cream 15 GM TUBE TOP SCH ×2 (08:35→21:48)
[2022-03-15] MEDS: Warfarin Sodium 5 MG TAB PO SCH (17:23)
[2022-03-15] MEDS: Thiamine 100 MG TAB PO SCH (21:42)
[2022-03-15] MEDS: Folic Acid 1 MG TAB PO SCH (21:42)
[2022-03-15] MEDS: Atorvastatin Calcium 10 MG TAB PO SCH (21:42)
[2022-03-15] MEDS: Guaifenesin DM 100-10/5 ML UDCUP PO PRN (21:43)
[2022-03-15] MEDS: Milk Of Magnesia 30 ML UDCUP PO SCH (21:43)
[2022-03-16] MEDS: tiZANidine HCl 4 MG TAB PO PRN ×3 (00:09→23:36)
[2022-03-16] MEDS: HYDROcodone/Acetaminophen 10/325 mg Tablet PO PRN ×4 (00:09→23:35)
[2022-03-16] MEDS: Piperacillin/Tazobactam 3.375 GM in Sodium Chloride 0.9% 100 ML IVPB SCH ×4 (00:11→23:39)
[2022-03-16 04:53] VITALS: BMI 41.1
[2022-03-16] MEDS: Bumetanide 1 MG TAB PO SCH ×2 (05:55→17:39)
[2022-03-16] MEDS: Levothyroxine Sodium 50 MCG TAB PO SCH (05:55)
[2022-03-16] MEDS: Pregabalin 50 MG CAP PO SCH ×3 (08:14→20:05)
[2022-03-16] MEDS: Albuterol Sulfate 2.5 mg/3 ml Neb NEB SCH ×2 (08:14→20:08)
[2022-03-16] MEDS: Polyethylene Glycol 3350 17 GM Packet PO SCH (08:14)
[2022-03-16] MEDS: Clotrimazole 1% Cream 15 GM TUBE TOP SCH ×2 (08:15→20:10)
[2022-03-16] MEDS: Tamsulosin HCl 0.4 MG CAP PO SCH (08:15)
[2022-03-16] MEDS: Spironolactone 25 MG TAB PO SCH (08:15)
[2022-03-16] MEDS: Docusate 100 MG CAP PO SCH (08:15)
[2022-03-16] MEDS: Finasteride 5 MG TAB PO SCH (08:15)
[2022-03-16] MEDS: Emollient 15 oz bottle 450 ML, Triamcinolone Acetonide 200 MG TOP SCH (08:16)
[2022-03-16] MEDS: Sodium Hypochlorite 0.25% Solution 480 ML BOT TOP SCH (08:17)
[2022-03-16] MEDS: Warfarin Sodium 5 MG TAB PO SCH (17:39)
[2022-03-16] MEDS: Milk Of Magnesia 30 ML UDCUP PO SCH (20:04)
[2022-03-16] MEDS: Thiamine 100 MG TAB PO SCH (20:07)
[2022-03-16] MEDS: Atorvastatin Calcium 10 MG TAB PO SCH (20:07)
[2022-03-16] MEDS: Folic Acid 1 MG TAB PO SCH (20:07)
[2022-03-17 05:29] LABS: Prothrombin Time 23.7 sec (12.0-14.7)
[2022-03-17] MEDS: Bumetanide 1 MG TAB PO SCH ×2 (05:35→17:20)
[2022-03-17] MEDS: Levothyroxine Sodium 50 MCG TAB PO SCH (05:36)
[2022-03-17] MEDS: HYDROcodone/Acetaminophen 10/325 mg Tablet PO PRN ×3 (05:39→22:18)
[2022-03-17] MEDS: Piperacillin/Tazobactam 3.375 GM in Sodium Chloride 0.9% 100 ML IVPB SCH ×2 (08:06→15:48)
[2022-03-17] MEDS: Spironolactone 25 MG TAB PO SCH (08:10)
[2022-03-17] MEDS: Pregabalin 50 MG CAP PO SCH ×3 (08:10→22:19)
[2022-03-17] MEDS: Finasteride 5 MG TAB PO SCH (08:10)
[2022-03-17] MEDS: Docusate 100 MG CAP PO SCH (08:10)
[2022-03-17] MEDS: Clotrimazole 1% Cream 15 GM TUBE TOP SCH ×2 (08:11→22:20)
[2022-03-17] MEDS: Tamsulosin HCl 0.4 MG CAP PO SCH (08:11)
[2022-03-17] MEDS: Polyethylene Glycol 3350 17 GM Packet PO SCH (08:11)
[2022-03-17] MEDS: Albuterol Sulfate 2.5 mg/3 ml Neb NEB SCH ×2 (08:11→22:19)
[2022-03-17] MEDS: Emollient 15 oz bottle 450 ML, Triamcinolone Acetonide 200 MG TOP SCH (08:13)
[2022-03-17] MEDS: Sodium Hypochlorite 0.25% Solution 480 ML BOT TOP SCH (09:50)
[2022-03-17] MEDS: Warfarin Sodium 5 MG TAB PO SCH (15:50)
[2022-03-17] MEDS: Atorvastatin Calcium 10 MG TAB PO SCH (22:18)
[2022-03-17] MEDS: Folic Acid 1 MG TAB PO SCH (22:18)
[2022-03-17] MEDS: tiZANidine HCl 4 MG TAB PO PRN (22:18)
[2022-03-17] MEDS: Thiamine 100 MG TAB PO SCH (22:18)
[2022-03-17] MEDS: Milk Of Magnesia 30 ML UDCUP PO SCH (22:19)
[2022-03-18] MEDS: Piperacillin/Tazobactam 3.375 GM in Sodium Chloride 0.9% 100 ML IVPB SCH ×4 (00:51→23:50)
[2022-03-18] MEDS: HYDROcodone/Acetaminophen 10/325 mg Tablet PO PRN ×3 (05:17→23:49)
[2022-03-18] MEDS: Bumetanide 1 MG TAB PO SCH ×2 (05:18→18:32)
[2022-03-18] MEDS: Levothyroxine Sodium 50 MCG TAB PO SCH (05:18)
[2022-03-18] MEDS: Polyethylene Glycol 3350 17 GM Packet PO SCH (08:12)
[2022-03-18] MEDS: Spironolactone 25 MG TAB PO SCH (08:12)
[2022-03-18] MEDS: Docusate 100 MG CAP PO SCH (08:13)
[2022-03-18] MEDS: Tamsulosin HCl 0.4 MG CAP PO SCH (08:13)
[2022-03-18] MEDS: Finasteride 5 MG TAB PO SCH (08:13)
[2022-03-18] MEDS: Pregabalin 50 MG CAP PO SCH ×3 (08:17→20:45)
[2022-03-18] MEDS: Albuterol 200 PUFF (6.7GM INHALER) INH PRN (08:22)
[2022-03-18] MEDS: Emollient 15 oz bottle 450 ML, Triamcinolone Acetonide 200 MG TOP SCH (08:32)
[2022-03-18] MEDS: Sodium Hypochlorite 0.25% Solution 480 ML BOT TOP SCH (08:32)
[2022-03-18] MEDS: Albuterol Sulfate 2.5 mg/3 ml Neb NEB SCH ×2 (08:34→20:45)
[2022-03-18] MEDS: Clotrimazole 1% Cream 15 GM TUBE TOP SCH ×2 (08:35→20:50)
[2022-03-18] MEDS: Warfarin Sodium 5 MG TAB PO SCH (18:32)
[2022-03-18] MEDS: Atorvastatin Calcium 10 MG TAB PO SCH (20:45)
[2022-03-18] MEDS: Milk Of Magnesia 30 ML UDCUP PO SCH (20:45)
[2022-03-18] MEDS: Folic Acid 1 MG TAB PO SCH (20:45)
[2022-03-18] MEDS: Thiamine 100 MG TAB PO SCH (20:45)
[2022-03-18] MEDS: tiZANidine HCl 4 MG TAB PO PRN (23:49)
[2022-03-19] MEDS: Bumetanide 1 MG TAB PO SCH ×2 (04:49→17:29)
[2022-03-19] MEDS: Levothyroxine Sodium 50 MCG TAB PO SCH (04:49)
[2022-03-19] MEDS: HYDROcodone/Acetaminophen 10/325 mg Tablet PO PRN ×3 (04:56→21:56)
[2022-03-19] MEDS: Spironolactone 25 MG TAB PO SCH (08:41)
[2022-03-19] MEDS: Piperacillin/Tazobactam 3.375 GM in Sodium Chloride 0.9% 100 ML IVPB SCH ×3 (08:41→23:46)
[2022-03-19] MEDS: Docusate 100 MG CAP PO SCH (08:41)
[2022-03-19] MEDS: Tamsulosin HCl 0.4 MG CAP PO SCH (08:42)
[2022-03-19] MEDS: Pregabalin 50 MG CAP PO SCH ×3 (08:42→20:14)
[2022-03-19] MEDS: Finasteride 5 MG TAB PO SCH (08:42)
[2022-03-19] MEDS: Clotrimazole 1% Cream 15 GM TUBE TOP SCH ×2 (08:43→23:05)
[2022-03-19] MEDS: Polyethylene Glycol 3350 17 GM Packet PO SCH (08:43)
[2022-03-19] MEDS: Emollient 15 oz bottle 450 ML, Triamcinolone Acetonide 200 MG TOP SCH (08:43)
[2022-03-19] MEDS: Sodium Hypochlorite 0.25% Solution 480 ML BOT TOP SCH (08:43)
[2022-03-19] MEDS: Albuterol Sulfate 2.5 mg/3 ml Neb NEB SCH ×2 (08:43→20:14)
[2022-03-19] MEDS ORDERED: Piperacillin/Tazobactam 3.375 GM VIAL ONE (15:52)
[2022-03-19] MEDS: Warfarin Sodium 5 MG TAB PO SCH (17:29)
[2022-03-19] MEDS: Milk Of Magnesia 30 ML UDCUP PO SCH (20:13)
[2022-03-19] MEDS: Folic Acid 1 MG TAB PO SCH (20:15)
[2022-03-19] MEDS: Atorvastatin Calcium 10 MG TAB PO SCH (20:15)
[2022-03-19] MEDS: Thiamine 100 MG TAB PO SCH (20:15)
[2022-03-19] MEDS: tiZANidine HCl 4 MG TAB PO PRN (21:57)
[2022-03-20 05:20] LABS: INR-International Normal Ratio 2.2; Prothrombin Time 25.1 sec (12.0-14.7)
[2022-03-20] MEDS: HYDROcodone/Acetaminophen 10/325 mg Tablet PO PRN ×3 (05:34→23:20)
[2022-03-20] MEDS: Levothyroxine Sodium 50 MCG TAB PO SCH (05:34)
[2022-03-20] MEDS: Bumetanide 1 MG TAB PO SCH ×2 (05:34→17:30)
[2022-03-20] MEDS: Piperacillin/Tazobactam 3.375 GM in Sodium Chloride 0.9% 100 ML IVPB SCH ×2 (08:23→15:21)
[2022-03-20] MEDS: Pregabalin 50 MG CAP PO SCH ×3 (08:24→20:34)
[2022-03-20] MEDS: Polyethylene Glycol 3350 17 GM Packet PO SCH (08:24)
[2022-03-20] MEDS: Docusate 100 MG CAP PO SCH (08:24)
[2022-03-20] MEDS: Spironolactone 25 MG TAB PO SCH (08:24)
[2022-03-20] MEDS: Albuterol Sulfate 2.5 mg/3 ml Neb NEB SCH (08:24)
[2022-03-20] MEDS: Clotrimazole 1% Cream 15 GM TUBE TOP SCH ×2 (08:25→20:36)
[2022-03-20] MEDS: Finasteride 5 MG TAB PO SCH (08:25)
[2022-03-20] MEDS: Tamsulosin HCl 0.4 MG CAP PO SCH (08:25)
[2022-03-20] MEDS: Emollient 15 oz bottle 450 ML, Triamcinolone Acetonide 200 MG TOP SCH (08:26)
[2022-03-20] MEDS: Sodium Hypochlorite 0.25% Solution 480 ML BOT TOP SCH (13:07)
[2022-03-20] MEDS: Warfarin Sodium 5 MG TAB PO SCH (17:31)
[2022-03-20] MEDS: Albuterol 200 PUFF (6.7GM INHALER) INH PRN (20:34)
[2022-03-20] MEDS: Folic Acid 1 MG TAB PO SCH (20:35)
[2022-03-20] MEDS: Thiamine 100 MG TAB PO SCH (20:35)
[2022-03-20] MEDS: Milk Of Magnesia 30 ML UDCUP PO SCH (20:35)
[2022-03-20] MEDS: Atorvastatin Calcium 10 MG TAB PO SCH (20:35)
[2022-03-20] MEDS: tiZANidine HCl 4 MG TAB PO PRN (23:20)
[2022-03-21] MEDS: Albuterol Sulfate 2.5 mg/3 ml Neb NEB SCH ×3 (00:27→20:02)
[2022-03-21] MEDS: Piperacillin/Tazobactam 3.375 GM in Sodium Chloride 0.9% 100 ML IVPB SCH ×4 (00:39→23:41)
[2022-03-21] MEDS: Levothyroxine Sodium 50 MCG TAB PO SCH (05:22)
[2022-03-21] MEDS: Bumetanide 1 MG TAB PO SCH ×2 (05:22→17:24)
[2022-03-21] MEDS: HYDROcodone/Acetaminophen 10/325 mg Tablet PO PRN ×3 (05:22→22:34)
[2022-03-21 05:29] LABS: Hemoglobin 15.6 g/dL (14.0-18.0); Platelet Count 166 10x3/uL (130-400)
[2022-03-21] MEDS: Polyethylene Glycol 3350 17 GM Packet PO SCH (08:27)
[2022-03-21] MEDS: Albuterol 200 PUFF (6.7GM INHALER) INH PRN (08:27)
[2022-03-21] MEDS: Spironolactone 25 MG TAB PO SCH (08:35)
[2022-03-21] MEDS: Ergocalciferol 1.25 MG(50,000 UNITS) CAP PO SCH (08:35)
[2022-03-21] MEDS: Pregabalin 50 MG CAP PO SCH ×3 (08:35→20:01)
[2022-03-21] MEDS: Tamsulosin HCl 0.4 MG CAP PO SCH (08:36)
[2022-03-21] MEDS: Docusate 100 MG CAP PO SCH (08:36)
[2022-03-21] MEDS: Finasteride 5 MG TAB PO SCH (08:36)
[2022-03-21] MEDS: Clotrimazole 1% Cream 15 GM TUBE TOP SCH ×2 (08:37→20:03)
[2022-03-21] MEDS: Sodium Hypochlorite 0.25% Solution 480 ML BOT TOP SCH (08:38)
[2022-03-21] MEDS: Emollient 15 oz bottle 450 ML, Triamcinolone Acetonide 200 MG TOP SCH (08:38)
[2022-03-21] MEDS: Warfarin Sodium 5 MG TAB PO SCH (17:25)
[2022-03-21] MEDS: Folic Acid 1 MG TAB PO SCH (20:02)
[2022-03-21] MEDS: Milk Of Magnesia 30 ML UDCUP PO SCH (20:02)
[2022-03-21] MEDS: Thiamine 100 MG TAB PO SCH (20:02)
[2022-03-21] MEDS: Atorvastatin Calcium 10 MG TAB PO SCH (20:02)
[2022-03-21] MEDS: tiZANidine HCl 4 MG TAB PO PRN (22:35)
[2022-03-22] MEDS: HYDROcodone/Acetaminophen 10/325 mg Tablet PO PRN ×3 (05:18→23:33)
[2022-03-22] MEDS: Bumetanide 1 MG TAB PO SCH (05:19)
[2022-03-22] MEDS: Levothyroxine Sodium 50 MCG TAB PO SCH (05:19)
[2022-03-22 05:22] LABS: #Basophils 0.1 thou/uL (0.0-0.2); #Eosinphils 0.5 thou/uL (0.0-0.7); #Lymphocytes 1.4 thou/uL (1.20-3.40); #Monocytes 0.8 thou/uL (0.11-0.59); #Neutrophils 4.2 thou/uL (1.40-6.50); %Basophils 2.1 % (0.0-1.0); %Eosinophils 7.5 % (0.0-10.0); %Lymphocytes 19.3 % (21.0-51.0); %Monocytes 11.2 % (0.0-10.0); Hemoglobin 15.9 g/dL (14.0-18.0); Mean Corpuscular HGB CONC 33.9 g/dL (32.0-36.0); Mean Corpuscular Hemoglobin 33.8 pg (27.0-31.0); Mean Corpuscular Volume 99.7 fl (78.0-98.0); Mean Platelet Volume 7.3 fL (7.4-10.4); Platelet Count 175 10x3/uL (130-400); RBC Distribution Width 12.3 % (11.5-14.5); Red Blood Cell (RBC) Count 4.71 mill/uL (4.70-6.10)
[2022-03-22 05:39] LABS: ALT (SGPT) 15 U/L (8-55); AST (SGOT) 21 U/L (5-34); Albumin 4.3 g/dL (3.5-5.0); Alkaline Phosphatase 108 U/L (40-110); Anion Gap 19 mmol/L (10-20); BUN (Urea Nitrogen) 55 mg/dL (8.4-25.7); Bilirubin, Total 1.3 mg/dL (0.2-1.2); CRP (Inflammatory) 0.99 mg/dL (= or < 0.5); Calc. Creatinine Clearance 108 mL/min (70-130); Calcium 9.9 mg/dL (7.8-10.44); Carbon Dioxide 21 mmol/L (22-29); Chloride 100 mmol/L (98-107); Estimated GFR 56; Globulin 4.6 g/dL (2.4-3.5); Glucose 117 mg/dL (70-105); Potassium 4.4 mmol/L (3.5-5.1); Protein, Total 8.9 g/dL (6.0-8.3); Sodium 136 mmol/L (136-145)
[2022-03-22] MEDS: Piperacillin/Tazobactam 3.375 GM in Sodium Chloride 0.9% 100 ML IVPB SCH ×3 (08:36→23:30)
[2022-03-22] MEDS: Spironolactone 25 MG TAB PO SCH (08:37)
[2022-03-22] MEDS: Pregabalin 50 MG CAP PO SCH ×3 (08:37→20:56)
[2022-03-22] MEDS: Finasteride 5 MG TAB PO SCH (08:37)
[2022-03-22] MEDS: Docusate 100 MG CAP PO SCH (08:38)
[2022-03-22] MEDS: Emollient 15 oz bottle 450 ML, Triamcinolone Acetonide 200 MG TOP SCH (08:40)
[2022-03-22] MEDS: Tamsulosin HCl 0.4 MG CAP PO SCH (08:40)
[2022-03-22] MEDS: Polyethylene Glycol 3350 17 GM Packet PO SCH (08:41)
[2022-03-22] MEDS: Clotrimazole 1% Cream 15 GM TUBE TOP SCH ×2 (08:41→20:56)
[2022-03-22] MEDS: Sodium Hypochlorite 0.25% Solution 480 ML BOT TOP SCH (08:41)
[2022-03-22] MEDS: Albuterol Sulfate 2.5 mg/3 ml Neb NEB SCH ×2 (08:41→20:55)
[2022-03-22] MEDS: Warfarin Sodium 5 MG TAB PO SCH (17:16)
[2022-03-22] MEDS: Atorvastatin Calcium 10 MG TAB PO SCH (20:55)
[2022-03-22] MEDS: Folic Acid 1 MG TAB PO SCH (20:56)
[2022-03-22] MEDS: Milk Of Magnesia 30 ML UDCUP PO SCH (20:56)
[2022-03-22] MEDS: Thiamine 100 MG TAB PO SCH (20:57)
[2022-03-22] MEDS: tiZANidine HCl 4 MG TAB PO PRN (23:33)
[2022-03-23 05:24] LABS: Prothrombin Time 23.1 sec (12.0-14.7)
[2022-03-23] MEDS: HYDROcodone/Acetaminophen 10/325 mg Tablet PO PRN ×3 (05:49→22:04)
[2022-03-23] MEDS: Levothyroxine Sodium 50 MCG TAB PO SCH (05:50)
[2022-03-23] MEDS: Spironolactone 25 MG TAB PO SCH (08:30)
[2022-03-23] MEDS: Bumetanide 1 MG TAB PO SCH (08:31)
[2022-03-23] MEDS: Pregabalin 50 MG CAP PO SCH ×3 (08:31→22:00)
[2022-03-23] MEDS: Piperacillin/Tazobactam 3.375 GM in Sodium Chloride 0.9% 100 ML IVPB SCH ×2 (08:32→15:13)
[2022-03-23] MEDS: Finasteride 5 MG TAB PO SCH (08:33)
[2022-03-23] MEDS: Albuterol Sulfate 2.5 mg/3 ml Neb NEB SCH ×2 (08:33→22:01)
[2022-03-23] MEDS: Clotrimazole 1% Cream 15 GM TUBE TOP SCH ×2 (08:33→22:01)
[2022-03-23] MEDS: Sodium Hypochlorite 0.25% Solution 480 ML BOT TOP SCH (08:34)
[2022-03-23] MEDS: Polyethylene Glycol 3350 17 GM Packet PO SCH (08:34)
[2022-03-23] MEDS: Tamsulosin HCl 0.4 MG CAP PO SCH (08:34)
[2022-03-23] MEDS: Emollient 15 oz bottle 450 ML, Triamcinolone Acetonide 200 MG TOP SCH (08:34)
[2022-03-23] MEDS: Docusate 100 MG CAP PO SCH (08:37)
[2022-03-23] MEDS: Warfarin Sodium 5 MG TAB PO SCH (15:16)
[2022-03-23] MEDS: Thiamine 100 MG TAB PO SCH (22:00)
[2022-03-23] MEDS: Atorvastatin Calcium 10 MG TAB PO SCH (22:00)
[2022-03-23] MEDS: Folic Acid 1 MG TAB PO SCH (22:00)
[2022-03-23] MEDS: Milk Of Magnesia 30 ML UDCUP PO SCH (22:01)
[2022-03-23] MEDS: tiZANidine HCl 4 MG TAB PO PRN (22:04)
[2022-03-24] MEDS: Piperacillin/Tazobactam 3.375 GM in Sodium Chloride 0.9% 100 ML IVPB SCH
[2022-03-24] MEDS: Levothyroxine Sodium 50 MCG TAB PO SCH (05:18)
[2022-03-24 08:18] VITALS: BP 105/68; TEMP 97.7
[2022-03-24] MEDS: Docusate 100 MG CAP PO SCH (08:37)
[2022-03-24] MEDS: Finasteride 5 MG TAB PO SCH (08:38)
[2022-03-24] MEDS: Spironolactone 25 MG TAB PO SCH (08:38)
[2022-03-24] MEDS: Albuterol Sulfate 2.5 mg/3 ml Neb NEB SCH (08:38)
[2022-03-24] MEDS: Tamsulosin HCl 0.4 MG CAP PO SCH (08:38)
[2022-03-24] MEDS: Pregabalin 50 MG CAP PO SCH (08:38)
[2022-03-24] MEDS: Bumetanide 1 MG TAB PO SCH (08:38)
[2022-03-24] MEDS: Clotrimazole 1% Cream 15 GM TUBE TOP SCH (08:39)
[2022-03-24] MEDS: Sodium Hypochlorite 0.25% Solution 480 ML BOT TOP SCH (08:40)
[2022-03-24] MEDS: Polyethylene Glycol 3350 17 GM Packet PO SCH (08:40)
[2022-03-24] MEDS: Emollient 15 oz bottle 450 ML, Triamcinolone Acetonide 200 MG TOP SCH (08:40)
== END 2022-03-24 13:00 | disposition home or self-care (01) | DRG 540 ==
LOC: UNDOADMIN 19:11 → MADMS 19:11
PROVIDERS: ADMIT Family Medicine; ATTEND Family Medicine
DX: M86.8X7 Other osteomyelitis, ankle and foot (principal); I13.0 Hypertensive heart and chronic kidney disease with heart failure and stage 1 through stage 4 chronic kidney disease, or unspecified chronic kidney disease; L03.116 Cellulitis of left lower limb; Z68.41 Body mass index [BMI] 40.0-44.9, adult; I42.9 Cardiomyopathy, unspecified; Z20.822 Contact with and (suspected) exposure to COVID-19; I87.2 Venous insufficiency (chronic) (peripheral); L97.529 Non-pressure chronic ulcer of other part of left foot with unspecified severity; I48.0 Paroxysmal atrial fibrillation; I50.9 Heart failure, unspecified; E78.5 Hyperlipidemia, unspecified; G47.33 Obstructive sleep apnea (adult) (pediatric); E03.9 Hypothyroidism, unspecified; K59.00 Constipation, unspecified; R53.1 Weakness; N18.9 Chronic kidney disease, unspecified; F17.210 Nicotine dependence, cigarettes, uncomplicated; Z96.642 Presence of left artificial hip joint; E66.9 Obesity, unspecified; Z60.2 Problems related to living alone; Z79.899 Other long term (current) drug therapy; Z79.01 Long term (current) use of anticoagulants; Z95.0 Presence of cardiac pacemaker; Z79.890 Hormone replacement therapy
CPT/HCPCS: 36415; 71046; 80048; 80053; 80061; 83880; 84443; 85014; 85018; 85025; 85049; 85610; 85652; 86140; 87811; 90471; 90686; 94640; G0008; J2543; J3490; J7611

== ENCOUNTER 2022-05-03 13:47 | Emergency (ER) | payer OTHER ==
[2022-05-03] MEDS ORDERED: Clindamycin/D5W 900 mg/50 ml Premix Bag ONE (14:29)
[2022-05-03] MEDS ORDERED: Sodium Chloride 0.9% 250 ML 500 ML ONE (14:29)
[2022-05-03] MEDS ORDERED: Sodium Chloride 0.9% 100 ML ONE (14:29)
[2022-05-03] MEDS ORDERED: Cefepime 2 GM VIAL ONE (14:29)
[2022-05-03] MEDS ORDERED: Vancomycin 1 GM VIAL ONE (14:29)
[2022-05-03 14:35] LABS: Hemoglobin 14.7 g/dL (14.0-18.0); Mean Corpuscular HGB CONC 34.9 g/dL (32.0-36.0); Mean Corpuscular Hemoglobin 34.8 pg (27.0-31.0); Mean Corpuscular Volume 99.6 fl (78.0-98.0); Mean Platelet Volume 6.6 fL (7.4-10.4); Platelet Count 177 10x3/uL (130-400); RBC Distribution Width 13.5 % (11.5-14.5); Red Blood Cell (RBC) Count 4.23 mill/uL (4.70-6.10); White Blood Cell (WBC) Count 12.9 10x3/uL (4.8-10.8)
[2022-05-03 14:42] LABS: Band 7 % (5-11); MDiff Complete? YES; Manual Diff?? YES; Neutrophil 82 % (42-75)
[2022-05-03 14:43] LABS: Anisocytosis SLIGHT = 6-15 cells (100X) (0-5/hpf); INR-International Normal Ratio 1.7; Lymphocytes 8 % (21-51); Monocytes 3 % (0-10); Platelet Morphology Comment Appears Adequate; Prothrombin Time 20.3 sec (12.0-14.7)
[2022-05-03 14:44] LABS: PTT 39.9 sec (22.9-36.1)
[2022-05-03 14:46] LABS: D-Dimer Test 0.88 *mcg/mL (0.27-0.43)
[2022-05-03 14:51] LABS: SARS-CoV-2 NAA Rapid Test Not Detected (NotDetected)
[2022-05-03 15:06] LABS: ALT (SGPT) 18 U/L (8-55); AST (SGOT) 21 U/L (5-34); Albumin 4.1 g/dL (3.5-5.0); Alkaline Phosphatase 101 U/L (40-110); Anion Gap 18 mmol/L (10-20); BUN (Urea Nitrogen) 29 mg/dL (8.4-25.7); Bilirubin, Total 2.4 mg/dL (0.2-1.2); Calc. Creatinine Clearance 0 mL/min (70-130); Calcium 9.2 mg/dL (7.8-10.44); Carbon Dioxide 21 mmol/L (22-29); Chloride 97 mmol/L (98-107); Estimated GFR 47; Globulin 3.8 g/dL (2.4-3.5); Glucose 92 mg/dL (70-105); Potassium 4.9 mmol/L (3.5-5.1); Protein, Total 7.9 g/dL (6.0-8.3); Sodium 131 mmol/L (136-145)
[2022-05-03 15:28] LABS: CKMB 1.4 ng/mL (0-6.6)
[2022-05-03 15:38] LABS: Bilirubin Negative (Negative); Blood, Urine Negative (Negative); Clarity Clear (Clear); Glucose, Urine (Dipstick) Negative (Negative); Ketone, Urine Negative (Negative); Leukocyte Negative (Negative); Nitrite Negative (Negative); Protein, Urine (Dipstick) Negative (Neg-Trace); Specific Gravity, Urine 1.015 (1.005-1.030); Urobilinogen 0.2 mg/dL (Less than 2); pH, Urine 6.5 (5.0-9.0)
[2022-05-03] MEDS ORDERED: Sodium Chloride 0.9% 1,000 ML ONE (15:40)
[2022-05-03] MEDS ORDERED: Aspirin Chewable 81 MG TAB ONE (15:43)
[2022-05-03 18:21] LABS: CKMB 1.5 ng/mL (0-6.6)
== END 2022-05-03 20:04 | disposition short-term general hospital (02) ==
LOC: MADERS 13:47
DX: S91.102A Unspecified open wound of left great toe without damage to nail, initial encounter (principal); L03.116 Cellulitis of left lower limb; A41.9 Sepsis, unspecified organism; N17.9 Acute kidney failure, unspecified; R79.1 Abnormal coagulation profile; R79.89 Other specified abnormal findings of blood chemistry; E78.5 Hyperlipidemia, unspecified; I11.0 Hypertensive heart disease with heart failure; I50.9 Heart failure, unspecified; E03.9 Hypothyroidism, unspecified; F17.210 Nicotine dependence, cigarettes, uncomplicated; J44.9 Chronic obstructive pulmonary disease, unspecified; X58.XXXA Exposure to other specified factors, initial encounter; Z20.822 Contact with and (suspected) exposure to COVID-19; Z79.899 Other long term (current) drug therapy; Z79.01 Long term (current) use of anticoagulants
CPT/HCPCS: 0240U; 73552; 73590; 73630; 80053; 81003; 82553; 83605; 84484 ×2; 85025; 85379; 85610; 85730; 86140; 87040; 93005; 94760; 36415; 96365; 96367; 96375; J0692; J3370; J3490; J7050

== ENCOUNTER 2022-05-14 14:17 | Inpatient (IN) | payer OTHER ==
[2022-05-14] MEDS ORDERED: FLU VACC QS2022-23(6MOS UP)/PF 60 MCG/0.5 ML SYRINGE IM ONE (17:00)
[2022-05-14] MEDS ORDERED: Bisacodyl 5 MG TAB PO PRN (18:39)
[2022-05-14] MEDS ORDERED: Acetaminophen 650 MG Suppository PR PRN (18:39)
[2022-05-14] MEDS ORDERED: Bisacodyl 10 MG SUPP PR PRN (18:39)
[2022-05-14] MEDS: Cefepime 2 GM in Sodium Chloride 0.9% 100 ML IVPB SCH (18:43)
[2022-05-14] MEDS: Milk Of Magnesia 30 ML UDCUP PO SCH (21:04)
[2022-05-14] MEDS: Pregabalin 75 MG CAP PO SCH (21:05)
[2022-05-14] MEDS: Folic Acid 1 MG TAB PO SCH (21:06)
[2022-05-14] MEDS: Thiamine 100 MG TAB PO SCH (21:07)
[2022-05-14] MEDS: Atorvastatin Calcium 10 MG TAB PO SCH (21:07)
[2022-05-14] MEDS: Apixaban 5 MG TAB PO SCH (21:07)
[2022-05-14] MEDS: tiZANidine HCl 4 MG TAB PO PRN (22:31)
[2022-05-14] MEDS: HYDROcodone/Acetaminophen 10/325 mg Tablet PO PRN (22:31)
[2022-05-15] MEDS: Cefepime 2 GM in Sodium Chloride 0.9% 100 ML IVPB SCH ×3 (01:54→17:34)
[2022-05-15] MEDS ORDERED: Cefepime 2 GM VIAL IVPB SCH (02:00)
[2022-05-15] MEDS: tiZANidine HCl 4 MG TAB PO PRN ×4 (02:34→22:03)
[2022-05-15] MEDS ORDERED: Levothyroxine Sodium 50 MCG TAB PO SCH (09:00)
[2022-05-15] MEDS: Tamsulosin HCl 0.4 MG CAP PO SCH (10:07)
[2022-05-15] MEDS: Finasteride 5 MG TAB PO SCH (10:07)
[2022-05-15] MEDS: Docusate 100 MG CAP PO SCH (10:07)
[2022-05-15] MEDS: Apixaban 5 MG TAB PO SCH ×2 (10:08→20:56)
[2022-05-15] MEDS: Bumetanide 1 MG TAB PO SCH (10:08)
[2022-05-15] MEDS: Pregabalin 75 MG CAP PO SCH ×3 (10:08→20:56)
[2022-05-15] MEDS: Spironolactone 25 MG TAB PO SCH (10:09)
[2022-05-15] MEDS: HYDROcodone/Acetaminophen 10/325 mg Tablet PO PRN ×2 (10:11→22:03)
[2022-05-15] MEDS: Folic Acid 1 MG TAB PO SCH (20:56)
[2022-05-15] MEDS: Atorvastatin Calcium 10 MG TAB PO SCH (20:57)
[2022-05-15] MEDS: Thiamine 100 MG TAB PO SCH (20:57)
[2022-05-15] MEDS: Milk Of Magnesia 30 ML UDCUP PO SCH (20:58)
[2022-05-16] MEDS: Cefepime 2 GM in Sodium Chloride 0.9% 100 ML IVPB SCH ×3 (01:41→18:01)
[2022-05-16] MEDS: Levothyroxine Sodium 50 MCG TAB PO SCH (06:12)
[2022-05-16] MEDS: Spironolactone 25 MG TAB PO SCH (09:05)
[2022-05-16] MEDS: Apixaban 5 MG TAB PO SCH ×2 (09:05→21:51)
[2022-05-16] MEDS: Bumetanide 1 MG TAB PO SCH (09:05)
[2022-05-16] MEDS: Docusate 100 MG CAP PO SCH (09:06)
[2022-05-16] MEDS: Finasteride 5 MG TAB PO SCH (09:06)
[2022-05-16] MEDS: Tamsulosin HCl 0.4 MG CAP PO SCH (09:06)
[2022-05-16] MEDS: Pregabalin 75 MG CAP PO SCH ×3 (09:09→21:51)
[2022-05-16] MEDS: HYDROcodone/Acetaminophen 10/325 mg Tablet PO PRN ×2 (10:27→23:51)
[2022-05-16] MEDS: tiZANidine HCl 4 MG TAB PO PRN ×2 (10:27→21:50)
[2022-05-16] MEDS: Milk Of Magnesia 30 ML UDCUP PO SCH (21:50)
[2022-05-16] MEDS: Folic Acid 1 MG TAB PO SCH (21:51)
[2022-05-16] MEDS: Thiamine 100 MG TAB PO SCH (21:51)
[2022-05-16] MEDS: Atorvastatin Calcium 10 MG TAB PO SCH (21:51)
[2022-05-17] MEDS: Cefepime 2 GM in Sodium Chloride 0.9% 100 ML IVPB SCH ×3 (02:05→18:19)
[2022-05-17] MEDS: tiZANidine HCl 4 MG TAB PO PRN ×3 (05:58→20:43)
[2022-05-17] MEDS: Levothyroxine Sodium 50 MCG TAB PO SCH (05:59)
[2022-05-17 07:14] LABS: #Basophils 0.2 thou/uL (0.0-0.2); #Eosinphils 0.4 thou/uL (0.0-0.7); #Lymphocytes 1.2 thou/uL (1.20-3.40); #Monocytes 0.8 thou/uL (0.11-0.59); #Neutrophils 5.9 thou/uL (1.40-6.50); %Basophils 2.8 % (0.0-1.0); %Eosinophils 4.3 % (0.0-10.0); %Lymphocytes 14.6 % (21.0-51.0); %Monocytes 8.9 % (0.0-10.0); %Neutrophils 69.4 % (42.0-75.0); Hemoglobin 14.4 g/dL (14.0-18.0); Mean Corpuscular Hemoglobin 35.2 pg (27.0-31.0); Mean Corpuscular Volume 97.8 fl (78.0-98.0); Mean Platelet Volume 6.4 fL (7.4-10.4); Platelet Count 204 10x3/uL (130-400); RBC Distribution Width 12.8 % (11.5-14.5); Red Blood Cell (RBC) Count 4.08 mill/uL (4.70-6.10); White Blood Cell (WBC) Count 8.5 10x3/uL (4.8-10.8)
[2022-05-17 07:29] LABS: Anisocytosis SLIGHT = 6-15 cells (100X) (0-5/hpf); Platelet Morphology Comment Appears Adequate
[2022-05-17] MEDS: Pregabalin 75 MG CAP PO SCH ×3 (09:46→20:43)
[2022-05-17] MEDS: Docusate 100 MG CAP PO SCH (09:46)
[2022-05-17] MEDS: Finasteride 5 MG TAB PO SCH (09:46)
[2022-05-17] MEDS: Spironolactone 25 MG TAB PO SCH (09:46)
[2022-05-17] MEDS: Tamsulosin HCl 0.4 MG CAP PO SCH (09:47)
[2022-05-17] MEDS: Bumetanide 1 MG TAB PO SCH (09:47)
[2022-05-17] MEDS: Apixaban 5 MG TAB PO SCH ×2 (09:47→20:43)
[2022-05-17] MEDS: Acetaminophen 325 MG TAB PO PRN (14:28)
[2022-05-17] MEDS: Milk Of Magnesia 30 ML UDCUP PO SCH (20:42)
[2022-05-17] MEDS: Atorvastatin Calcium 10 MG TAB PO SCH (20:43)
[2022-05-17] MEDS: Folic Acid 1 MG TAB PO SCH (20:43)
[2022-05-17] MEDS: Thiamine 100 MG TAB PO SCH (20:43)
[2022-05-17] MEDS: HYDROcodone/Acetaminophen 10/325 mg Tablet PO PRN (22:28)
[2022-05-18] MEDS: Cefepime 2 GM in Sodium Chloride 0.9% 100 ML IVPB SCH ×3 (02:29→17:15)
[2022-05-18] MEDS: tiZANidine HCl 4 MG TAB PO PRN ×2 (03:44→10:32)
[2022-05-18] MEDS: Levothyroxine Sodium 50 MCG TAB PO SCH (05:50)
[2022-05-18] MEDS: Docusate 100 MG CAP PO SCH (08:35)
[2022-05-18] MEDS: Bumetanide 1 MG TAB PO SCH (08:35)
[2022-05-18] MEDS: Tamsulosin HCl 0.4 MG CAP PO SCH (08:35)
[2022-05-18] MEDS: Spironolactone 25 MG TAB PO SCH (08:35)
[2022-05-18] MEDS: Finasteride 5 MG TAB PO SCH (08:36)
[2022-05-18] MEDS: Pregabalin 75 MG CAP PO SCH ×2 (08:36→15:34)
[2022-05-18] MEDS: Apixaban 5 MG TAB PO SCH (08:36)
[2022-05-18] MEDS ORDERED: Pregabalin 75 MG CAP ONE ×3 (09:03→20:38)
[2022-05-18] MEDS ORDERED: Apixaban 5 MG TAB ONE ×2 (09:03→20:35)
[2022-05-18] MEDS ORDERED: Folic Acid 1 MG TAB ONE ×2 (09:03→20:37)
[2022-05-18] MEDS ORDERED: Milk Of Magnesia 30 ML UDCUP ONE ×2 (09:03→20:38)
[2022-05-18] MEDS ORDERED: tiZANidine HCl 4 MG TAB ONE ×2 (09:03→20:40)
[2022-05-18] MEDS ORDERED: Sodium Chloride 0.9% 100 ML BAG ONE (09:03)
[2022-05-18] MEDS ORDERED: Thiamine 100 MG TAB ONE ×2 (09:03→20:39)
[2022-05-18] MEDS ORDERED: Cefepime 2 GM VIAL ONE ×2 (09:03→15:33)
[2022-05-18] MEDS ORDERED: Atorvastatin Calcium 10 MG TAB ONE ×2 (09:03→20:37)
[2022-05-18] MEDS: HYDROcodone/Acetaminophen 10/325 mg Tablet PO PRN ×2 (10:32→22:47)
[2022-05-19] MEDS: Cefepime 2 GM in Sodium Chloride 0.9% 100 ML IVPB SCH ×3 (02:42→18:04)
[2022-05-19] MEDS: tiZANidine HCl 4 MG TAB PO PRN ×3 (03:30→23:09)
[2022-05-19] MEDS: Levothyroxine Sodium 50 MCG TAB PO SCH (05:25)
[2022-05-19] MEDS: Bumetanide 1 MG TAB PO SCH (08:27)
[2022-05-19] MEDS: Docusate 100 MG CAP PO SCH (08:27)
[2022-05-19] MEDS: Finasteride 5 MG TAB PO SCH (08:27)
[2022-05-19] MEDS: Pregabalin 75 MG CAP PO SCH ×4 (08:27→20:08)
[2022-05-19] MEDS: Apixaban 5 MG TAB PO SCH ×3 (08:28→20:07)
[2022-05-19] MEDS: Tamsulosin HCl 0.4 MG CAP PO SCH (08:28)
[2022-05-19] MEDS: Spironolactone 25 MG TAB PO SCH (08:28)
[2022-05-19] MEDS: Atorvastatin Calcium 10 MG TAB PO SCH ×2 (10:36→20:06)
[2022-05-19] MEDS: Milk Of Magnesia 30 ML UDCUP PO SCH ×2 (10:37→20:09)
[2022-05-19] MEDS: Folic Acid 1 MG TAB PO SCH ×2 (10:37→20:07)
[2022-05-19] MEDS: Thiamine 100 MG TAB PO SCH ×2 (10:38→20:08)
[2022-05-19] MEDS: Acetaminophen 325 MG TAB PO PRN (14:29)
[2022-05-19] MEDS: Melatonin 3 MG TAB PO PRN (23:09)
[2022-05-19] MEDS: HYDROcodone/Acetaminophen 10/325 mg Tablet PO PRN (23:09)
[2022-05-20] MEDS: Cefepime 2 GM in Sodium Chloride 0.9% 100 ML IVPB SCH ×3 (02:32→17:27)
[2022-05-20] MEDS: Levothyroxine Sodium 50 MCG TAB PO SCH (05:43)
[2022-05-20] MEDS: Acetaminophen 325 MG TAB PO PRN ×2 (05:43→14:30)
[2022-05-20] MEDS: tiZANidine HCl 4 MG TAB PO PRN ×3 (05:43→22:03)
[2022-05-20] MEDS: Polyethylene Glycol 3350 17 GM Packet PO PRN (09:15)
[2022-05-20] MEDS: Pregabalin 75 MG CAP PO SCH ×3 (09:15→20:40)
[2022-05-20] MEDS: Bumetanide 1 MG TAB PO SCH (09:15)
[2022-05-20] MEDS: Finasteride 5 MG TAB PO SCH (09:15)
[2022-05-20] MEDS: Spironolactone 25 MG TAB PO SCH (09:15)
[2022-05-20] MEDS: Docusate 100 MG CAP PO SCH (09:16)
[2022-05-20] MEDS: Apixaban 5 MG TAB PO SCH ×2 (09:16→20:39)
[2022-05-20] MEDS: Tamsulosin HCl 0.4 MG CAP PO SCH (09:16)
[2022-05-20] MEDS ORDERED: Sodium Hypochlorite 0.25% Solution 480 ML BOT TOP PRN (15:22)
[2022-05-20] MEDS: Atorvastatin Calcium 10 MG TAB PO SCH (20:39)
[2022-05-20] MEDS: Milk Of Magnesia 30 ML UDCUP PO SCH (20:39)
[2022-05-20] MEDS: Thiamine 100 MG TAB PO SCH (20:39)
[2022-05-20] MEDS: Folic Acid 1 MG TAB PO SCH (20:39)
[2022-05-20] MEDS: Melatonin 3 MG TAB PO PRN (22:03)
[2022-05-20] MEDS: HYDROcodone/Acetaminophen 10/325 mg Tablet PO PRN (22:03)
[2022-05-21] MEDS: Cefepime 2 GM in Sodium Chloride 0.9% 100 ML IVPB SCH ×3 (01:42→17:46)
[2022-05-21] MEDS: tiZANidine HCl 4 MG TAB PO PRN ×4 (05:01→22:37)
[2022-05-21] MEDS: Levothyroxine Sodium 50 MCG TAB PO SCH (05:01)
[2022-05-21] MEDS: Acetaminophen 325 MG TAB PO PRN ×2 (05:02→17:52)
[2022-05-21] MEDS: Pregabalin 75 MG CAP PO SCH ×3 (09:13→20:25)
[2022-05-21] MEDS: Spironolactone 25 MG TAB PO SCH (09:13)
[2022-05-21] MEDS: Polyethylene Glycol 3350 17 GM Packet PO PRN (09:13)
[2022-05-21] MEDS: Bumetanide 1 MG TAB PO SCH (09:14)
[2022-05-21] MEDS: Docusate 100 MG CAP PO SCH (09:14)
[2022-05-21] MEDS: Finasteride 5 MG TAB PO SCH (09:14)
[2022-05-21] MEDS: Tamsulosin HCl 0.4 MG CAP PO SCH (09:14)
[2022-05-21] MEDS: Apixaban 5 MG TAB PO SCH ×2 (09:14→20:26)
[2022-05-21] MEDS: Sodium Hypochlorite 0.25% Solution 480 ML BOT TOP SCH (09:15)
[2022-05-21] MEDS: HYDROcodone/Acetaminophen 10/325 mg Tablet PO PRN ×2 (11:07→22:37)
[2022-05-21] MEDS: Milk Of Magnesia 30 ML UDCUP PO SCH (20:25)
[2022-05-21] MEDS: Thiamine 100 MG TAB PO SCH (20:26)
[2022-05-21] MEDS: Atorvastatin Calcium 10 MG TAB PO SCH (20:26)
[2022-05-21] MEDS: Folic Acid 1 MG TAB PO SCH (20:26)
[2022-05-21] MEDS: Melatonin 3 MG TAB PO PRN (22:37)
[2022-05-22] MEDS: Cefepime 2 GM in Sodium Chloride 0.9% 100 ML IVPB SCH ×3 (01:12→18:06)
[2022-05-22] MEDS: tiZANidine HCl 4 MG TAB PO PRN ×4 (03:00→22:29)
[2022-05-22] MEDS: Levothyroxine Sodium 50 MCG TAB PO SCH (05:30)
[2022-05-22] MEDS: Polyethylene Glycol 3350 17 GM Packet PO PRN (09:36)
[2022-05-22] MEDS: Spironolactone 25 MG TAB PO SCH (09:37)
[2022-05-22] MEDS: Tamsulosin HCl 0.4 MG CAP PO SCH (09:37)
[2022-05-22] MEDS: Bumetanide 1 MG TAB PO SCH (09:37)
[2022-05-22] MEDS: Apixaban 5 MG TAB PO SCH ×2 (09:37→20:28)
[2022-05-22] MEDS: Finasteride 5 MG TAB PO SCH (09:37)
[2022-05-22] MEDS: Docusate 100 MG CAP PO SCH (09:37)
[2022-05-22] MEDS: Acetaminophen 325 MG TAB PO PRN ×2 (09:38→15:11)
[2022-05-22] MEDS: Pregabalin 75 MG CAP PO SCH ×3 (09:38→20:28)
[2022-05-22] MEDS: Sodium Hypochlorite 0.25% Solution 480 ML BOT TOP SCH (09:41)
[2022-05-22] MEDS: Bumetanide 1 MG TAB PO PRN (15:16)
[2022-05-22] MEDS: Milk Of Magnesia 30 ML UDCUP PO SCH (20:27)
[2022-05-22] MEDS: Atorvastatin Calcium 10 MG TAB PO SCH (20:28)
[2022-05-22] MEDS: Thiamine 100 MG TAB PO SCH (20:28)
[2022-05-22] MEDS: Folic Acid 1 MG TAB PO SCH (20:28)
[2022-05-22] MEDS: Melatonin 3 MG TAB PO PRN (22:27)
[2022-05-22] MEDS: HYDROcodone/Acetaminophen 10/325 mg Tablet PO PRN (22:29)
[2022-05-23] MEDS: Cefepime 2 GM in Sodium Chloride 0.9% 100 ML IVPB SCH ×3 (01:30→17:40)
[2022-05-23] MEDS: tiZANidine HCl 4 MG TAB PO PRN ×4 (02:46→22:41)
[2022-05-23] MEDS: Levothyroxine Sodium 50 MCG TAB PO SCH (05:17)
[2022-05-23] MEDS: Polyethylene Glycol 3350 17 GM Packet PO PRN (08:56)
[2022-05-23] MEDS: Apixaban 5 MG TAB PO SCH ×2 (08:57→21:35)
[2022-05-23] MEDS: Finasteride 5 MG TAB PO SCH (08:57)
[2022-05-23] MEDS: Docusate 100 MG CAP PO SCH (08:57)
[2022-05-23] MEDS: Spironolactone 25 MG TAB PO SCH (08:57)
[2022-05-23] MEDS: Tamsulosin HCl 0.4 MG CAP PO SCH (08:58)
[2022-05-23] MEDS: Pregabalin 75 MG CAP PO SCH ×3 (08:58→21:32)
[2022-05-23] MEDS: Sodium Hypochlorite 0.25% Solution 480 ML BOT TOP SCH (08:59)
[2022-05-23] MEDS: Bumetanide 1 MG TAB PO SCH (09:03)
[2022-05-23] MEDS: HYDROcodone/Acetaminophen 10/325 mg Tablet PO PRN ×2 (10:48→22:41)
[2022-05-23] MEDS: Acetaminophen 325 MG TAB PO PRN (14:46)
[2022-05-23] MEDS: Thiamine 100 MG TAB PO SCH (21:35)
[2022-05-23] MEDS: Folic Acid 1 MG TAB PO SCH (21:35)
[2022-05-23] MEDS: Milk Of Magnesia 30 ML UDCUP PO SCH (21:35)
[2022-05-23] MEDS: Atorvastatin Calcium 10 MG TAB PO SCH (21:35)
[2022-05-23] MEDS: Melatonin 3 MG TAB PO PRN (22:41)
[2022-05-24] MEDS: Cefepime 2 GM in Sodium Chloride 0.9% 100 ML IVPB SCH ×3 (02:46→17:42)
[2022-05-24] MEDS: Levothyroxine Sodium 50 MCG TAB PO SCH (05:26)
[2022-05-24] MEDS: Apixaban 5 MG TAB PO SCH ×2 (08:32→20:51)
[2022-05-24] MEDS: Spironolactone 25 MG TAB PO SCH (08:32)
[2022-05-24] MEDS: Docusate 100 MG CAP PO SCH (08:32)
[2022-05-24] MEDS: Pregabalin 75 MG CAP PO SCH ×3 (08:33→20:51)
[2022-05-24] MEDS: Tamsulosin HCl 0.4 MG CAP PO SCH (08:33)
[2022-05-24] MEDS: Finasteride 5 MG TAB PO SCH (08:33)
[2022-05-24] MEDS: tiZANidine HCl 4 MG TAB PO PRN ×3 (08:33→22:33)
[2022-05-24] MEDS: Bumetanide 1 MG TAB PO SCH (08:33)
[2022-05-24] MEDS: Acetaminophen 325 MG TAB PO PRN ×2 (08:34→15:23)
[2022-05-24] MEDS: Polyethylene Glycol 3350 17 GM Packet PO PRN (08:34)
[2022-05-24] MEDS: HYDROcodone/Acetaminophen 10/325 mg Tablet PO PRN ×2 (10:43→22:33)
[2022-05-24] MEDS: Sodium Hypochlorite 0.25% Solution 480 ML BOT TOP SCH (10:46)
[2022-05-24 14:21] LABS: Anion Gap 15 mmol/L (10-20); BUN (Urea Nitrogen) 55 mg/dL (8.4-25.7); Calc. Creatinine Clearance 111 mL/min (70-130); Calcium 10.7 mg/dL (7.8-10.44); Carbon Dioxide 30 mmol/L (22-29); Chloride 101 mmol/L (98-107); Estimated GFR 57; Glucose 122 mg/dL (70-105); Potassium 5.8 mmol/L (3.5-5.1); Sodium 140 mmol/L (136-145)
[2022-05-24 14:46] LABS: Anisocytosis SLIGHT = 6-15 cells (100X) (0-5/hpf); Hemoglobin 15.1 g/dL (14.0-18.0); MDiff Complete? YES; Macrocytosis SLIGHT = 6-15 cells (100X) (0-5/hpf); Mean Corpuscular HGB CONC 35.1 g/dL (32.0-36.0); Mean Corpuscular Hemoglobin 34.7 pg (27.0-31.0); Mean Corpuscular Volume 98.9 fl (78.0-98.0); Mean Platelet Volume 7.4 fL (7.4-10.4); Platelet Count 196 10x3/uL (130-400); Platelet Morphology Comment Appears Adequate; RBC Distribution Width 12.2 % (11.5-14.5); Red Blood Cell (RBC) Count 4.35 mill/uL (4.70-6.10); White Blood Cell (WBC) Count 8.4 10x3/uL (4.8-10.8)
[2022-05-24] MEDS: Bumetanide 1 MG TAB PO PRN (15:23)
[2022-05-24] MEDS: Thiamine 100 MG TAB PO SCH (20:50)
[2022-05-24] MEDS: Milk Of Magnesia 30 ML UDCUP PO SCH (20:50)
[2022-05-24] MEDS: Folic Acid 1 MG TAB PO SCH (20:50)
[2022-05-24] MEDS: Atorvastatin Calcium 10 MG TAB PO SCH (20:50)
[2022-05-24] MEDS: Melatonin 3 MG TAB PO PRN (22:33)
[2022-05-25] MEDS: Cefepime 2 GM in Sodium Chloride 0.9% 100 ML IVPB SCH ×3 (01:54→17:44)
[2022-05-25] MEDS: tiZANidine HCl 4 MG TAB PO PRN ×3 (02:36→22:37)
[2022-05-25] MEDS: Levothyroxine Sodium 50 MCG TAB PO SCH (05:14)
[2022-05-25 05:20] LABS: Anion Gap 14 mmol/L (10-20); BUN (Urea Nitrogen) 60 mg/dL (8.4-25.7); Calc. Creatinine Clearance 111 mL/min (70-130); Calcium 9.7 mg/dL (7.8-10.44); Carbon Dioxide 24 mmol/L (22-29); Chloride 102 mmol/L (98-107); Estimated GFR 57; Glucose 117 mg/dL (70-105); Potassium 4.7 mmol/L (3.5-5.1); Sodium 135 mmol/L (136-145)
[2022-05-25] MEDS ORDERED: Spironolactone 100 MG TAB PO SCH (08:00)
[2022-05-25] MEDS ORDERED: Spironolactone 25 MG TAB PO SCH (10:00)
[2022-05-25] MEDS: Docusate 100 MG CAP PO SCH (10:37)
[2022-05-25] MEDS: Bumetanide 1 MG TAB PO SCH (10:37)
[2022-05-25] MEDS: Tamsulosin HCl 0.4 MG CAP PO SCH (10:37)
[2022-05-25] MEDS: HYDROcodone/Acetaminophen 10/325 mg Tablet PO PRN ×2 (10:37→22:37)
[2022-05-25] MEDS: Pregabalin 75 MG CAP PO SCH ×3 (10:37→20:45)
[2022-05-25] MEDS: Finasteride 5 MG TAB PO SCH (10:37)
[2022-05-25] MEDS: Sodium Hypochlorite 0.25% Solution 480 ML BOT TOP SCH (10:39)
[2022-05-25] MEDS: Apixaban 5 MG TAB PO SCH ×2 (10:39→20:44)
[2022-05-25] MEDS: Polyethylene Glycol 3350 17 GM Packet PO PRN (10:45)
[2022-05-25] MEDS: Acetaminophen 325 MG TAB PO PRN ×2 (17:44→22:37)
[2022-05-25] MEDS: Thiamine 100 MG TAB PO SCH (20:44)
[2022-05-25] MEDS: Atorvastatin Calcium 10 MG TAB PO SCH (20:44)
[2022-05-25] MEDS: Milk Of Magnesia 30 ML UDCUP PO SCH (20:44)
[2022-05-25] MEDS: Folic Acid 1 MG TAB PO SCH (20:45)
[2022-05-25] MEDS: Melatonin 3 MG TAB PO PRN (22:37)
[2022-05-26] MEDS: Cefepime 2 GM in Sodium Chloride 0.9% 100 ML IVPB SCH ×3 (01:56→17:38)
[2022-05-26] MEDS: tiZANidine HCl 4 MG TAB PO PRN ×3 (05:49→22:35)
[2022-05-26] MEDS: Levothyroxine Sodium 50 MCG TAB PO SCH (05:49)
[2022-05-26] MEDS: Acetaminophen 325 MG TAB PO PRN ×3 (05:49→22:35)
[2022-05-26] MEDS: Pregabalin 75 MG CAP PO SCH ×3 (09:22→20:25)
[2022-05-26] MEDS: Bumetanide 1 MG TAB PO SCH (09:22)
[2022-05-26] MEDS: Spironolactone 25 MG TAB PO SCH (09:22)
[2022-05-26] MEDS: Apixaban 5 MG TAB PO SCH ×2 (09:23→20:25)
[2022-05-26] MEDS: Finasteride 5 MG TAB PO SCH (09:23)
[2022-05-26] MEDS: Tamsulosin HCl 0.4 MG CAP PO SCH (09:23)
[2022-05-26] MEDS: Docusate 100 MG CAP PO SCH (09:23)
[2022-05-26 10:10] VITALS: BMI 41.6
[2022-05-26] MEDS: HYDROcodone/Acetaminophen 10/325 mg Tablet PO PRN ×2 (10:29→22:36)
[2022-05-26] MEDS: Bumetanide 1 MG TAB PO PRN (15:11)
[2022-05-26] MEDS: Sodium Hypochlorite 0.25% Solution 480 ML BOT TOP SCH (15:12)
[2022-05-26] MEDS: Folic Acid 1 MG TAB PO SCH (20:25)
[2022-05-26] MEDS: Thiamine 100 MG TAB PO SCH (20:25)
[2022-05-26] MEDS: Milk Of Magnesia 30 ML UDCUP PO SCH (20:25)
[2022-05-26] MEDS: Atorvastatin Calcium 10 MG TAB PO SCH (20:25)
[2022-05-26] MEDS: Melatonin 3 MG TAB PO PRN (22:35)
[2022-05-27] MEDS: Cefepime 2 GM in Sodium Chloride 0.9% 100 ML IVPB SCH ×3 (02:15→17:58)
[2022-05-27] MEDS: Levothyroxine Sodium 50 MCG TAB PO SCH (05:10)
[2022-05-27] MEDS: Spironolactone 25 MG TAB PO SCH (09:01)
[2022-05-27] MEDS: Pregabalin 75 MG CAP PO SCH ×3 (09:01→20:09)
[2022-05-27] MEDS: Docusate 100 MG CAP PO SCH (09:02)
[2022-05-27] MEDS: Apixaban 5 MG TAB PO SCH ×2 (09:02→20:09)
[2022-05-27] MEDS: Tamsulosin HCl 0.4 MG CAP PO SCH (09:02)
[2022-05-27] MEDS: Finasteride 5 MG TAB PO SCH (09:02)
[2022-05-27] MEDS: Sodium Hypochlorite 0.25% Solution 480 ML BOT TOP SCH (09:02)
[2022-05-27] MEDS: Bumetanide 1 MG TAB PO SCH (09:02)
[2022-05-27] MEDS: Polyethylene Glycol 3350 17 GM Packet PO PRN (09:29)
[2022-05-27] MEDS: Acetaminophen 325 MG TAB PO PRN ×3 (09:30→22:36)
[2022-05-27] MEDS: tiZANidine HCl 4 MG TAB PO PRN ×3 (09:30→22:34)
[2022-05-27] MEDS: HYDROcodone/Acetaminophen 10/325 mg Tablet PO PRN ×2 (10:31→22:35)
[2022-05-27] MEDS: Bumetanide 1 MG TAB PO PRN (18:30)
[2022-05-27] MEDS: Atorvastatin Calcium 10 MG TAB PO SCH (20:08)
[2022-05-27] MEDS: Folic Acid 1 MG TAB PO SCH (20:08)
[2022-05-27] MEDS: Milk Of Magnesia 30 ML UDCUP PO SCH (20:08)
[2022-05-27] MEDS: Thiamine 100 MG TAB PO SCH (20:09)
[2022-05-27] MEDS: Melatonin 3 MG TAB PO PRN (22:34)
[2022-05-28] MEDS: Cefepime 2 GM in Sodium Chloride 0.9% 100 ML IVPB SCH ×3 (01:59→17:42)
[2022-05-28] MEDS: tiZANidine HCl 4 MG TAB PO PRN ×3 (06:17→19:34)
[2022-05-28] MEDS: Levothyroxine Sodium 50 MCG TAB PO SCH (06:17)
[2022-05-28] MEDS: Polyethylene Glycol 3350 17 GM Packet PO PRN (10:33)
[2022-05-28] MEDS: Apixaban 5 MG TAB PO SCH ×2 (10:34→20:04)
[2022-05-28] MEDS: Bumetanide 1 MG TAB PO SCH (10:34)
[2022-05-28] MEDS: Finasteride 5 MG TAB PO SCH (10:34)
[2022-05-28] MEDS: Docusate 100 MG CAP PO SCH (10:34)
[2022-05-28] MEDS: Pregabalin 75 MG CAP PO SCH ×3 (10:34→20:06)
[2022-05-28] MEDS: Tamsulosin HCl 0.4 MG CAP PO SCH (10:34)
[2022-05-28] MEDS: HYDROcodone/Acetaminophen 10/325 mg Tablet PO PRN ×2 (10:35→22:40)
[2022-05-28] MEDS: Acetaminophen 325 MG TAB PO PRN ×3 (10:35→22:41)
[2022-05-28] MEDS: Spironolactone 25 MG TAB PO SCH (10:41)
[2022-05-28] MEDS: Sodium Hypochlorite 0.25% Solution 480 ML BOT TOP SCH (14:45)
[2022-05-28] MEDS: Thiamine 100 MG TAB PO SCH (20:04)
[2022-05-28] MEDS: Folic Acid 1 MG TAB PO SCH (20:04)
[2022-05-28] MEDS: Atorvastatin Calcium 10 MG TAB PO SCH (20:04)
[2022-05-28] MEDS: Milk Of Magnesia 30 ML UDCUP PO SCH (20:05)
[2022-05-28] MEDS: Melatonin 3 MG TAB PO PRN (22:40)
[2022-05-29] MEDS: Cefepime 2 GM in Sodium Chloride 0.9% 100 ML IVPB SCH ×3 (01:43→17:38)
[2022-05-29] MEDS: tiZANidine HCl 4 MG TAB PO PRN ×4 (05:38→22:45)
[2022-05-29] MEDS: Acetaminophen 325 MG TAB PO PRN ×4 (05:38→22:47)
[2022-05-29] MEDS: Levothyroxine Sodium 50 MCG TAB PO SCH (05:38)
[2022-05-29] MEDS: Tamsulosin HCl 0.4 MG CAP PO SCH (08:54)
[2022-05-29] MEDS: Docusate 100 MG CAP PO SCH (08:54)
[2022-05-29] MEDS: Apixaban 5 MG TAB PO SCH ×2 (08:54→20:35)
[2022-05-29] MEDS: Finasteride 5 MG TAB PO SCH (08:54)
[2022-05-29] MEDS: Pregabalin 75 MG CAP PO SCH ×3 (08:54→20:35)
[2022-05-29] MEDS: Spironolactone 25 MG TAB PO SCH (08:54)
[2022-05-29] MEDS: Bumetanide 1 MG TAB PO SCH (08:54)
[2022-05-29] MEDS: Sodium Hypochlorite 0.25% Solution 480 ML BOT TOP SCH (08:55)
[2022-05-29] MEDS: Polyethylene Glycol 3350 17 GM Packet PO PRN (08:59)
[2022-05-29] MEDS: HYDROcodone/Acetaminophen 10/325 mg Tablet PO PRN ×2 (10:53→22:46)
[2022-05-29] MEDS: Bumetanide 1 MG TAB PO PRN (15:23)
[2022-05-29] MEDS: Atorvastatin Calcium 10 MG TAB PO SCH (20:35)
[2022-05-29] MEDS: Thiamine 100 MG TAB PO SCH (20:35)
[2022-05-29] MEDS: Folic Acid 1 MG TAB PO SCH (20:35)
[2022-05-29] MEDS: Milk Of Magnesia 30 ML UDCUP PO SCH (20:36)
[2022-05-29] MEDS: Melatonin 3 MG TAB PO PRN (22:45)
[2022-05-30] MEDS: tiZANidine HCl 4 MG TAB PO PRN ×2 (04:41→14:44)
[2022-05-30] MEDS: Acetaminophen 325 MG TAB PO PRN ×2 (04:41→14:44)
[2022-05-30] MEDS: Levothyroxine Sodium 50 MCG TAB PO SCH (05:21)
[2022-05-30] MEDS ORDERED: Ciprofloxacin 500 MG TAB PO SCH (06:00)
[2022-05-30] MEDS: Bumetanide 1 MG TAB PO SCH (08:11)
[2022-05-30] MEDS: Docusate 100 MG CAP PO SCH (08:11)
[2022-05-30] MEDS: Tamsulosin HCl 0.4 MG CAP PO SCH (08:11)
[2022-05-30] MEDS: Pregabalin 75 MG CAP PO SCH ×2 (08:11→14:44)
[2022-05-30] MEDS: Apixaban 5 MG TAB PO SCH (08:11)
[2022-05-30] MEDS: Spironolactone 25 MG TAB PO SCH (08:11)
[2022-05-30] MEDS: Finasteride 5 MG TAB PO SCH (08:11)
[2022-05-30] MEDS: Sodium Hypochlorite 0.25% Solution 480 ML BOT TOP SCH (08:24)
[2022-05-30] MEDS: Polyethylene Glycol 3350 17 GM Packet PO PRN (08:33)
[2022-05-30 19:29] VITALS: BP 160/78; TEMP 98.2
== END 2022-05-30 19:54 | DRG 603 ==
LOC: MADMS 15:43
PROVIDERS: ADMIT Family Medicine; ATTEND Family Medicine
DX: L03.116 Cellulitis of left lower limb (principal); L97.829 Non-pressure chronic ulcer of other part of left lower leg with unspecified severity; L97.819 Non-pressure chronic ulcer of other part of right lower leg with unspecified severity; I73.9 Peripheral vascular disease, unspecified; M16.0 Bilateral primary osteoarthritis of hip; I48.0 Paroxysmal atrial fibrillation; E78.5 Hyperlipidemia, unspecified; G47.33 Obstructive sleep apnea (adult) (pediatric); E03.9 Hypothyroidism, unspecified; Z96.642 Presence of left artificial hip joint; F17.210 Nicotine dependence, cigarettes, uncomplicated; J44.9 Chronic obstructive pulmonary disease, unspecified; I50.9 Heart failure, unspecified; K59.09 Other constipation; I87.2 Venous insufficiency (chronic) (peripheral); I11.0 Hypertensive heart disease with heart failure; E87.5 Hyperkalemia; Z20.822 Contact with and (suspected) exposure to COVID-19; Z95.0 Presence of cardiac pacemaker; Z98.890 Other specified postprocedural states
CPT/HCPCS: 36415; 80048; 85025; 87811; J0692; J3490; U0003; U0005

== ENCOUNTER 2023-03-01 09:21 | Inpatient (IN) | payer OTHER ==
[2023-03-01] MEDS ORDERED: Albuterol 200 PUFF (6.7GM INHALER) INH PRN (15:36)
[2023-03-01] MEDS ORDERED: Non-Formulary Item 1 EACH (Insulin Aspart [Insulin Aspart] 100 UNIT/ML Vial) SQ PRN (15:36)
[2023-03-01] MEDS ORDERED: Ipratropium Bromide 2.5 ml Neb NEB PRN (15:36)
[2023-03-01] MEDS ORDERED: Glucagon 1 MG/ML KIT IM PRN (16:30)
[2023-03-01] MEDS ORDERED: Dextrose 50% Abboject 50 ML SYRINGE IVP PRN (16:30)
[2023-03-01] MEDS ORDERED: HumaLOG 300 UNITS/3 ML VIAL SC PRN (16:30)
[2023-03-01] MEDS ORDERED: Dextrose 5% in Water 1,000 ML IV PRN (16:30)
[2023-03-01 16:45] VITALS: BMI 50.8
[2023-03-01] MEDS: Ipratropium/Albuterol 3 ML NEB NEB SCH (18:04)
[2023-03-01] MEDS: Atorvastatin Calcium 10 MG TAB PO SCH (21:11)
[2023-03-01] MEDS: Docusate 100 MG CAP PO SCH (21:11)
[2023-03-01] MEDS: Apixaban 5 MG TAB PO SCH (21:11)
[2023-03-01] MEDS: Mometasone 100 MCG/PUFF (1 INHALER) INH SCH (21:12)
[2023-03-01] MEDS: Pregabalin 75 MG CAP PO SCH (21:14)
[2023-03-01] MEDS: Bumetanide 1 MG TAB PO SCH (21:16)
[2023-03-01] MEDS: Senokot 8.6 MG TAB PO SCH (21:16)
[2023-03-01] MEDS: Cefepime 2 GM in Sodium Chloride 0.9% 100 ML IVPB SCH (21:17)
[2023-03-01] MEDS: HYDROcodone/Acetaminophen 10/325 mg Tablet PO PRN (21:24)
[2023-03-01] MEDS ORDERED: Cefepime 2 GM VIAL IVPB SCH (22:00)
[2023-03-02] MEDS: Ipratropium/Albuterol 3 ML NEB NEB SCH ×4 (00:05→18:27)
[2023-03-02] MEDS: HYDROcodone/Acetaminophen 10/325 mg Tablet PO PRN ×3 (03:14→21:39)
[2023-03-02] MEDS: Cefepime 2 GM in Sodium Chloride 0.9% 100 ML IVPB SCH ×3 (05:03→21:30)
[2023-03-02] MEDS: Levothyroxine Sodium 50 MCG TAB PO SCH (05:04)
[2023-03-02] MEDS: Bumetanide 1 MG TAB PO SCH ×3 (05:04→21:30)
[2023-03-02 05:43] LABS: ALT (SGPT) Less than 7 U/L (8-55); Albumin 3.2 g/dL (3.5-5.0); Alkaline Phosphatase 87 U/L (40-110); BUN (Urea Nitrogen) 30 mg/dL (8.4-25.7); Bilirubin, Total 1.6 mg/dL (0.2-1.2); Estimated GFR 56
[2023-03-02 05:55] LABS: #Basophils 0.2 thou/uL (0.0-0.2); #Eosinphils 0.3 thou/uL (0.0-0.7); #Lymphocytes 0.9 thou/uL (1.20-3.40); #Monocytes 0.7 thou/uL (0.11-0.59); #Neutrophils 4.8 thou/uL (1.40-6.50); %Basophils 2.6 % (0.0-1.0); %Eosinophils 4.9 % (0.0-10.0); %Lymphocytes 13.5 % (21.0-51.0); %Monocytes 10.1 % (0.0-10.0); %Neutrophils 68.9 % (42.0-75.0); Hemoglobin 8.1 g/dL (14.0-18.0); Mean Corpuscular HGB CONC 31.3 g/dL (32.0-36.0); Mean Corpuscular Hemoglobin 31.4 pg (27.0-31.0); Mean Corpuscular Volume 100.4 fl (78.0-98.0); Mean Platelet Volume 6.6 fL (7.4-10.4); Platelet Count 254 10x3/uL (130-400); RBC Distribution Width 18.3 % (11.5-14.5); Red Blood Cell (RBC) Count 2.59 mill/uL (4.70-6.10); White Blood Cell (WBC) Count 6.9 10x3/uL (4.8-10.8)
[2023-03-02 06:10] LABS: AST (SGOT) 13 U/L (5-34); Anion Gap 15 mmol/L (10-20); Calc. Creatinine Clearance 132 mL/min (70-130); Calcium 8.4 mg/dL (7.8-10.44); Carbon Dioxide 25 mmol/L (22-29); Chloride 99 mmol/L (98-107); Globulin 3.6 g/dL (2.4-3.5); Glucose 115 mg/dL (70-105); Potassium 3.8 mmol/L (3.5-5.1); Protein, Total 6.8 g/dL (6.0-8.3); Sodium 135 mmol/L (136-145)
[2023-03-02] MEDS: Docusate 100 MG CAP PO SCH ×2 (08:30→21:26)
[2023-03-02] MEDS: Apixaban 5 MG TAB PO SCH ×2 (08:30→21:25)
[2023-03-02] MEDS: Milk Of Magnesia 30 ML UDCUP PO SCH (08:31)
[2023-03-02] MEDS: Finasteride 5 MG TAB PO SCH (08:31)
[2023-03-02] MEDS: Mometasone 100 MCG/PUFF (1 INHALER) INH SCH ×2 (08:32→21:40)
[2023-03-02] MEDS: Nicotine 21 MG PATCH TD SCH (08:33)
[2023-03-02] MEDS: Polyethylene Glycol 3350 17 GM Packet PO SCH (08:33)
[2023-03-02] MEDS: Senokot 8.6 MG TAB PO SCH ×2 (08:34→21:30)
[2023-03-02] MEDS: Pregabalin 75 MG CAP PO SCH ×3 (08:34→21:29)
[2023-03-02] MEDS: Tamsulosin HCl 0.4 MG CAP PO SCH (08:35)
[2023-03-02] MEDS ORDERED: Non-Formulary Item 1 EACH (Fluticasone/Umeclidin/Vilanter [Trelegy Ellipta 100-62.5-25] 1 IH SCH (09:00)
[2023-03-02] MEDS: Atorvastatin Calcium 10 MG TAB PO SCH (21:25)
[2023-03-03] MEDS: Ipratropium/Albuterol 3 ML NEB NEB SCH ×4 (00:12→17:39)
[2023-03-03] MEDS: Bumetanide 1 MG TAB PO SCH ×3 (05:51→21:55)
[2023-03-03] MEDS: Levothyroxine Sodium 50 MCG TAB PO SCH (05:52)
[2023-03-03] MEDS: Cefepime 2 GM in Sodium Chloride 0.9% 100 ML IVPB SCH ×3 (05:52→21:56)
[2023-03-03] MEDS: Nicotine 21 MG PATCH TD SCH (08:15)
[2023-03-03] MEDS: Mometasone 100 MCG/PUFF (1 INHALER) INH SCH ×2 (08:15→21:55)
[2023-03-03] MEDS: Finasteride 5 MG TAB PO SCH (08:16)
[2023-03-03] MEDS: Senokot 8.6 MG TAB PO SCH ×2 (08:16→21:55)
[2023-03-03] MEDS: Docusate 100 MG CAP PO SCH ×2 (08:16→21:55)
[2023-03-03] MEDS: Pregabalin 75 MG CAP PO SCH ×3 (08:16→21:55)
[2023-03-03] MEDS: Apixaban 5 MG TAB PO SCH ×2 (08:16→21:55)
[2023-03-03] MEDS: Tamsulosin HCl 0.4 MG CAP PO SCH (08:16)
[2023-03-03] MEDS: Polyethylene Glycol 3350 17 GM Packet PO SCH (08:16)
[2023-03-03] MEDS: Milk Of Magnesia 30 ML UDCUP PO SCH (08:16)
[2023-03-03] MEDS: Atorvastatin Calcium 10 MG TAB PO SCH (21:55)
[2023-03-04] MEDS: Ipratropium/Albuterol 3 ML NEB NEB SCH ×5 (01:37→23:58)
[2023-03-04] MEDS: HYDROcodone/Acetaminophen 10/325 mg Tablet PO PRN ×2 (02:50→21:13)
[2023-03-04] MEDS: Cefepime 2 GM in Sodium Chloride 0.9% 100 ML IVPB SCH ×3 (05:44→22:25)
[2023-03-04] MEDS: Levothyroxine Sodium 50 MCG TAB PO SCH (05:45)
[2023-03-04] MEDS: Bumetanide 1 MG TAB PO SCH ×3 (05:45→21:02)
[2023-03-04] MEDS: Mometasone 100 MCG/PUFF (1 INHALER) INH SCH ×2 (08:31→21:12)
[2023-03-04] MEDS: Polyethylene Glycol 3350 17 GM Packet PO SCH (08:34)
[2023-03-04] MEDS: Milk Of Magnesia 30 ML UDCUP PO SCH (08:36)
[2023-03-04] MEDS: Senokot 8.6 MG TAB PO SCH ×2 (08:36→21:02)
[2023-03-04] MEDS: Tamsulosin HCl 0.4 MG CAP PO SCH (08:36)
[2023-03-04] MEDS: Finasteride 5 MG TAB PO SCH (08:36)
[2023-03-04] MEDS: Docusate 100 MG CAP PO SCH ×2 (08:36→21:01)
[2023-03-04] MEDS: Apixaban 5 MG TAB PO SCH ×2 (08:36→21:02)
[2023-03-04] MEDS: Nicotine 21 MG PATCH TD SCH (08:41)
[2023-03-04] MEDS: Pregabalin 75 MG CAP PO SCH ×3 (08:42→21:02)
[2023-03-04] MEDS ORDERED: guaiFENesin/DM ER PO SCH (10:00)
[2023-03-04] MEDS ORDERED: Ipratropium/Albuterol 3 ML NEB NEB PRN (20:55)
[2023-03-04] MEDS: Fluticasone Propionate Nasal Spray 16 gm Bottle NASAL PRN (20:59)
[2023-03-04] MEDS: guaiFENesin/DM ER PO SCH (21:01)
[2023-03-04] MEDS: Atorvastatin Calcium 10 MG TAB PO SCH (21:02)
[2023-03-04] MEDS ORDERED: diphenhydrAMINE 25 MG CAP PO PRN (22:44)
[2023-03-05] MEDS: Ipratropium/Albuterol 3 ML NEB NEB SCH ×2 (05:55→11:22)
[2023-03-05] MEDS: Bumetanide 1 MG TAB PO SCH ×2 (05:55→14:49)
[2023-03-05] MEDS: Cefepime 2 GM in Sodium Chloride 0.9% 100 ML IVPB SCH ×2 (05:55→15:44)
[2023-03-05] MEDS: Levothyroxine Sodium 50 MCG TAB PO SCH (05:55)
[2023-03-05] MEDS: Pregabalin 75 MG CAP PO SCH ×2 (08:22→14:50)
[2023-03-05] MEDS: Nicotine 21 MG PATCH TD SCH (08:23)
[2023-03-05] MEDS: Milk Of Magnesia 30 ML UDCUP PO SCH (08:24)
[2023-03-05] MEDS: Senokot 8.6 MG TAB PO SCH (08:24)
[2023-03-05] MEDS: Mometasone 100 MCG/PUFF (1 INHALER) INH SCH (08:24)
[2023-03-05] MEDS: Polyethylene Glycol 3350 17 GM Packet PO SCH (08:24)
[2023-03-05] MEDS: Docusate 100 MG CAP PO SCH (08:24)
[2023-03-05] MEDS: Apixaban 5 MG TAB PO SCH (08:25)
[2023-03-05] MEDS: guaiFENesin/DM ER PO SCH (08:25)
[2023-03-05] MEDS: Finasteride 5 MG TAB PO SCH (08:26)
[2023-03-05] MEDS: Tamsulosin HCl 0.4 MG CAP PO SCH (08:26)
[2023-03-05 08:29] VITALS: TEMP 98.7
[2023-03-05] MEDS ORDERED: Loratadine 10 MG TAB PO SCH (09:00)
[2023-03-05] MEDS: Fluticasone Propionate Nasal Spray 16 gm Bottle NASAL PRN (09:24)
[2023-03-05 12:17] LABS: Hematocrit 26.5 % (42.0-52.0); Hemoglobin 8.2 g/dL (14.0-18.0); Mean Corpuscular HGB CONC 30.8 g/dL (32.0-36.0); Mean Corpuscular Hemoglobin 30.8 pg (27.0-31.0); Mean Platelet Volume 7.3 fL (7.4-10.4); Platelet Count 233 10x3/uL (130-400); RBC Distribution Width 18.6 % (11.5-14.5); Red Blood Cell (RBC) Count 2.65 mill/uL (4.70-6.10)
[2023-03-05 12:35] LABS: ALT (SGPT) Less than 7 U/L (8-55); AST (SGOT) 16 U/L (5-34); Albumin 3.2 g/dL (3.5-5.0); Alkaline Phosphatase 116 U/L (40-110); Anion Gap 14 mmol/L (10-20); BUN (Urea Nitrogen) 30 mg/dL (8.4-25.7); Bilirubin, Total 1.8 mg/dL (0.2-1.2); Calc. Creatinine Clearance 155 mL/min (70-130); Calcium 8.3 mg/dL (7.8-10.44); Carbon Dioxide 25 mmol/L (22-29); Chloride 101 mmol/L (98-107); Estimated GFR 67; Globulin 3.8 g/dL (2.4-3.5); Glucose 149 mg/dL (70-105); Magnesium 2.2 mg/dL (1.6-2.6); Potassium 3.2 mmol/L (3.5-5.1); Sodium 137 mmol/L (136-145)
[2023-03-05 12:36] LABS: #Basophils 0.1 thou/uL (0.0-0.2); #Eosinphils 0.3 thou/uL (0.0-0.7); #Lymphocytes 0.8 thou/uL (1.20-3.40); #Monocytes 0.4 thou/uL (0.11-0.59); #Neutrophils 5.3 thou/uL (1.40-6.50); %Basophils 2.1 % (0.0-1.0); %Eosinophils 4.5 % (0.0-10.0); %Lymphocytes 11.1 % (21.0-51.0); %Monocytes 6.1 % (0.0-10.0); %Neutrophils 76.2 % (42.0-75.0); MDiff Complete? YES; Platelet Adequacy Comment Appears Adequate; Polychromasia SLIGHT = 2-3 cells (100X) (0-2/hpf)
[2023-03-05] MEDS ORDERED: Albumin 25% 100 ML ONE (13:27)
[2023-03-05] MEDS ORDERED: Furosemide 40 MG/4 ML VIAL SLOW IVP SCH (13:30)
[2023-03-05] MEDS ORDERED: Potassium Chloride 20 MEQ TAB PO SCH ×3 (13:30→21:00)
[2023-03-05] MEDS ORDERED: Albumin 25% 25 GM/100 ML BOT IVPB SCH (13:30)
[2023-03-05 14:01] LABS: Troponin I 0.054 ng/mL (< 0.028)
[2023-03-05 15:57] VITALS: BP 112/71
[2023-03-05] MEDS ORDERED: methylPREDNISolone Sod Succ 40 MG VIAL IVP SCH (16:30)
[2023-03-05] MEDS: HYDROcodone/Acetaminophen 10/325 mg Tablet PO PRN (16:36)
[2023-03-05] MEDS ORDERED: Fluticasone Propionate Nasal Spray 16 gm Bottle NASAL SCH (21:00)
[2023-03-06] MEDS ORDERED: methylPREDNISolone Sod Succ/PF 125 MG/2 ML VIAL IVP SCH (09:00)
[2023-03-06] MEDS ORDERED: methylPREDNISolone Sod Succ/PF 125 MG/2 ML VIAL IVP ONE (14:35)
== END 2023-03-05 17:05 | disposition short-term general hospital (02) | DRG 637 ==
LOC: MADMS 13:27
PROVIDERS: ADMIT Family Medicine; ATTEND Family Medicine
PROC: 5A09357 Assistance with Respiratory Ventilation, Less than 24 Consecutive Hours, Continuous Positive Airway Pressure (ICD-10-PCS; principal; 2023-03-04)
PROC: 30233J1 Transfusion of Nonautologous Serum Albumin into Peripheral Vein, Percutaneous Approach (ICD-10-PCS; 2023-03-05)
DX: E11.69 Type 2 diabetes mellitus with other specified complication (principal); J96.21 Acute and chronic respiratory failure with hypoxia; R78.81 Bacteremia; I50.32 Chronic diastolic (congestive) heart failure; J44.1 Chronic obstructive pulmonary disease with (acute) exacerbation; M86.672 Other chronic osteomyelitis, left ankle and foot; E87.70 Fluid overload, unspecified; D64.9 Anemia, unspecified; K59.09 Other constipation; E03.9 Hypothyroidism, unspecified; G47.33 Obstructive sleep apnea (adult) (pediatric); I48.0 Paroxysmal atrial fibrillation; E11.51 Type 2 diabetes mellitus with diabetic peripheral angiopathy without gangrene; Z79.899 Other long term (current) drug therapy; Z79.01 Long term (current) use of anticoagulants; Z74.01 Bed confinement status; Z79.4 Long term (current) use of insulin; Z98.890 Other specified postprocedural states; Z83.3 Family history of diabetes mellitus; Z91.048 Other nonmedicinal substance allergy status; Z88.1 Allergy status to other antibiotic agents; N40.0 Benign prostatic hyperplasia without lower urinary tract symptoms; E78.5 Hyperlipidemia, unspecified; E87.6 Hypokalemia; Z99.81 Dependence on supplemental oxygen; B95.2 Enterococcus as the cause of diseases classified elsewhere
CPT/HCPCS: 36416; 71045; 80053; 82550; 83735; 83880; 84484; 85025; 86140; 94640; 97602; J0692; J1940; J2920; J3490; J7620; P9047

== ENCOUNTER 2023-03-09 08:33 | Inpatient (IN) | payer OTHER ==
[2023-03-09] MEDS ORDERED: Ipratropium/Albuterol 3 ML NEB NEB PRN (13:47)
[2023-03-09] MEDS ORDERED: LACTULOSE 10 GM/15 ML PR PRN (13:47)
[2023-03-09] MEDS ORDERED: Glucagon 1 MG/ML KIT IM PRN (13:47)
[2023-03-09] MEDS ORDERED: Cefepime 2 GM VIAL IVPB SCH (14:00)
[2023-03-09] MEDS ORDERED: Non-Formulary Item 1 EACH (Sodium Chloride 0.9% [Normal Saline 0.9%] 100 ML Bag) IVPB SCH (14:00)
[2023-03-09] MEDS: Pregabalin 75 MG CAP PO SCH ×2 (14:54→21:27)
[2023-03-09] MEDS: Bumetanide 1 MG TAB PO SCH (14:54)
[2023-03-09] MEDS: Cefepime 2 GM in Sodium Chloride 0.9% 100 ML IVPB SCH (17:53)
[2023-03-09] MEDS: Ipratropium/Albuterol 3 ML NEB NEB SCH (17:54)
[2023-03-09] MEDS: Emollient 15 oz bottle 450 ML, Triamcinolone Acetonide 200 MG TOP SCH (18:02)
[2023-03-09] MEDS ORDERED: Emollient 15 oz bottle 450 ML, Triamcinolone Acetonide 200 MG TOP PRN (21:00)
[2023-03-09] MEDS: Fluticasone Propionate Nasal Spray 16 gm Bottle NASAL SCH (21:26)
[2023-03-09] MEDS: Atorvastatin Calcium 10 MG TAB PO SCH (21:26)
[2023-03-09] MEDS: Docusate 100 MG CAP PO SCH (21:26)
[2023-03-09] MEDS: Apixaban 5 MG TAB PO SCH (21:26)
[2023-03-09] MEDS: Potassium Chloride 20 MEQ TAB PO SCH (21:27)
[2023-03-09] MEDS: guaiFENesin/DM ER PO SCH (21:27)
[2023-03-09] MEDS: Senokot 8.6 MG TAB PO SCH (21:27)
[2023-03-09] MEDS: Nicotine 21 MG PATCH TD SCH ×2 (21:28→21:41)
[2023-03-10] MEDS: Ipratropium/Albuterol 3 ML NEB NEB SCH ×4 (00:40→17:40)
[2023-03-10] MEDS: HYDROcodone/Acetaminophen 10/325 mg Tablet PO PRN ×2 (00:41→20:30)
[2023-03-10] MEDS: Cefepime 2 GM in Sodium Chloride 0.9% 100 ML IVPB SCH ×3 (00:41→17:40)
[2023-03-10] MEDS: Levothyroxine Sodium 50 MCG TAB PO SCH (05:49)
[2023-03-10] MEDS: Fluticasone Propionate Nasal Spray 16 gm Bottle NASAL SCH ×2 (07:56→08:00)
[2023-03-10] MEDS: Nicotine 21 MG PATCH TD SCH (07:58)
[2023-03-10] MEDS: Bumetanide 1 MG TAB PO SCH ×2 (07:58→14:31)
[2023-03-10] MEDS: Tamsulosin HCl 0.4 MG CAP PO SCH (07:58)
[2023-03-10] MEDS: Finasteride 5 MG TAB PO SCH (07:59)
[2023-03-10] MEDS: Pregabalin 75 MG CAP PO SCH ×3 (07:59→20:28)
[2023-03-10] MEDS: guaiFENesin/DM ER PO SCH ×2 (07:59→20:31)
[2023-03-10] MEDS: Potassium Chloride 20 MEQ TAB PO SCH ×2 (07:59→20:30)
[2023-03-10] MEDS: Apixaban 5 MG TAB PO SCH ×2 (07:59→20:30)
[2023-03-10] MEDS: Senokot 8.6 MG TAB PO SCH ×2 (07:59→20:30)
[2023-03-10] MEDS: Loratadine 10 MG TAB PO SCH (07:59)
[2023-03-10] MEDS: Empagliflozin 10 MG TAB PO SCH (07:59)
[2023-03-10] MEDS: Docusate 100 MG CAP PO SCH ×2 (08:00→20:30)
[2023-03-10] MEDS: Polyethylene Glycol 3350 17 GM Packet PO SCH (08:00)
[2023-03-10] MEDS: Milk Of Magnesia 30 ML UDCUP PO SCH (08:05)
[2023-03-10] MEDS: Fluticasone/Umeclidin/Vilanter [Trelegy Ellipta 100-62.5-25] INH SCH (08:05)
[2023-03-10] MEDS: Emollient 15 oz bottle 450 ML, Triamcinolone Acetonide 200 MG TOP SCH ×2 (08:27→20:32)
[2023-03-10] MEDS: Atorvastatin Calcium 10 MG TAB PO SCH (20:31)
[2023-03-11] MEDS: Ipratropium/Albuterol 3 ML NEB NEB SCH ×5 (00:25→17:52)
[2023-03-11] MEDS: Cefepime 2 GM in Sodium Chloride 0.9% 100 ML IVPB SCH ×3 (00:25→16:42)
[2023-03-11] MEDS: Levothyroxine Sodium 50 MCG TAB PO SCH (05:44)
[2023-03-11] MEDS: Finasteride 5 MG TAB PO SCH (09:41)
[2023-03-11] MEDS: Potassium Chloride 20 MEQ TAB PO SCH ×2 (09:41→20:34)
[2023-03-11] MEDS: guaiFENesin/DM ER PO SCH ×2 (09:41→20:34)
[2023-03-11] MEDS: Empagliflozin 10 MG TAB PO SCH (09:41)
[2023-03-11] MEDS: Apixaban 5 MG TAB PO SCH ×2 (09:42→20:35)
[2023-03-11] MEDS: Polyethylene Glycol 3350 17 GM Packet PO SCH (09:42)
[2023-03-11] MEDS: Milk Of Magnesia 30 ML UDCUP PO SCH (09:42)
[2023-03-11] MEDS: Pregabalin 75 MG CAP PO SCH ×3 (09:42→20:35)
[2023-03-11] MEDS: Loratadine 10 MG TAB PO SCH (09:43)
[2023-03-11] MEDS: Docusate 100 MG CAP PO SCH ×2 (09:43→20:35)
[2023-03-11] MEDS: Nicotine 21 MG PATCH TD SCH (09:43)
[2023-03-11] MEDS: Bumetanide 1 MG TAB PO SCH ×2 (09:43→14:18)
[2023-03-11] MEDS: Senokot 8.6 MG TAB PO SCH ×2 (09:43→20:35)
[2023-03-11] MEDS: Fluticasone Propionate Nasal Spray 16 gm Bottle NASAL SCH ×2 (09:46→20:36)
[2023-03-11] MEDS: Fluticasone/Umeclidin/Vilanter [Trelegy Ellipta 100-62.5-25] INH SCH (09:48)
[2023-03-11] MEDS: Emollient 15 oz bottle 450 ML, Triamcinolone Acetonide 200 MG TOP SCH ×2 (09:48→20:36)
[2023-03-11] MEDS: Tamsulosin HCl 0.4 MG CAP PO SCH (09:49)
[2023-03-11] MEDS: HYDROcodone/Acetaminophen 10/325 mg Tablet PO PRN (20:35)
[2023-03-11] MEDS: Atorvastatin Calcium 10 MG TAB PO SCH (20:35)
[2023-03-12] MEDS: Cefepime 2 GM in Sodium Chloride 0.9% 100 ML IVPB SCH ×3 (00:31→17:40)
[2023-03-12] MEDS: Ipratropium/Albuterol 3 ML NEB NEB SCH ×4 (00:36→19:04)
[2023-03-12] MEDS: Levothyroxine Sodium 50 MCG TAB PO SCH (06:03)
[2023-03-12] MEDS: guaiFENesin/DM ER PO SCH ×2 (08:55→20:48)
[2023-03-12] MEDS: Tamsulosin HCl 0.4 MG CAP PO SCH (08:56)
[2023-03-12] MEDS: Loratadine 10 MG TAB PO SCH (08:56)
[2023-03-12] MEDS: Senokot 8.6 MG TAB PO SCH ×2 (08:56→20:49)
[2023-03-12] MEDS: Apixaban 5 MG TAB PO SCH ×2 (08:56→20:48)
[2023-03-12] MEDS: Bumetanide 1 MG TAB PO SCH ×2 (08:56→14:38)
[2023-03-12] MEDS: Pregabalin 75 MG CAP PO SCH ×3 (08:57→20:48)
[2023-03-12] MEDS: Empagliflozin 10 MG TAB PO SCH (08:57)
[2023-03-12] MEDS: Potassium Chloride 20 MEQ TAB PO SCH ×2 (08:58→20:48)
[2023-03-12] MEDS: Docusate 100 MG CAP PO SCH ×2 (08:59→20:49)
[2023-03-12] MEDS: Fluticasone Propionate Nasal Spray 16 gm Bottle NASAL SCH ×2 (09:04→20:49)
[2023-03-12] MEDS: HYDROcodone/Acetaminophen 10/325 mg Tablet PO PRN (09:25)
[2023-03-12] MEDS: Polyethylene Glycol 3350 17 GM Packet PO SCH (09:27)
[2023-03-12] MEDS: Fluticasone/Umeclidin/Vilanter [Trelegy Ellipta 100-62.5-25] INH SCH (09:27)
[2023-03-12] MEDS: Milk Of Magnesia 30 ML UDCUP PO SCH (09:28)
[2023-03-12] MEDS: Finasteride 5 MG TAB PO SCH (09:28)
[2023-03-12] MEDS: Nicotine 21 MG PATCH TD SCH (09:28)
[2023-03-12] MEDS: Emollient 15 oz bottle 450 ML, Triamcinolone Acetonide 200 MG TOP SCH ×2 (10:10→20:49)
[2023-03-12] MEDS: Atorvastatin Calcium 10 MG TAB PO SCH (20:48)
[2023-03-13] MEDS: Ipratropium/Albuterol 3 ML NEB NEB SCH ×4 (00:39→17:32)
[2023-03-13] MEDS: Cefepime 2 GM in Sodium Chloride 0.9% 100 ML IVPB SCH ×3 (00:40→17:32)
[2023-03-13] MEDS: HYDROcodone/Acetaminophen 10/325 mg Tablet PO PRN (01:22)
[2023-03-13 05:20] LABS: #Basophils 0.1 thou/uL (0.0-0.2); #Eosinphils 0.5 thou/uL (0.0-0.7); #Lymphocytes 0.6 thou/uL (1.20-3.40); #Monocytes 0.8 thou/uL (0.11-0.59); #Neutrophils 4.1 thou/uL (1.40-6.50); %Basophils 1.8 % (0.0-1.0); %Eosinophils 7.9 % (0.0-10.0); %Lymphocytes 10.2 % (21.0-51.0); %Monocytes 12.9 % (0.0-10.0); %Neutrophils 67.2 % (42.0-75.0); Hematocrit 29.7 % (42.0-52.0); Hemoglobin 9.1 g/dL (14.0-18.0); Mean Corpuscular HGB CONC 30.7 g/dL (32.0-36.0); Mean Corpuscular Hemoglobin 30.7 pg (27.0-31.0); Platelet Count 196 10x3/uL (130-400); RBC Distribution Width 18.7 % (11.5-14.5); Red Blood Cell (RBC) Count 2.97 mill/uL (4.70-6.10); White Blood Cell (WBC) Count 6.1 10x3/uL (4.8-10.8)
[2023-03-13 05:32] LABS: Anion Gap 14 mmol/L (10-20); BUN (Urea Nitrogen) 30 mg/dL (8.4-25.7); CRP (Inflammatory) 2.04 mg/dL (= or < 0.5); Calc. Creatinine Clearance 121 mL/min (70-130); Calcium 8.9 mg/dL (7.8-10.44); Carbon Dioxide 27 mmol/L (22-29); Chloride 107 mmol/L (98-107); Estimated GFR 51; Glucose 118 mg/dL (70-105); Potassium 4.1 mmol/L (3.5-5.1); Sodium 144 mmol/L (136-145)
[2023-03-13] MEDS: Levothyroxine Sodium 50 MCG TAB PO SCH (05:43)
[2023-03-13] MEDS: Tamsulosin HCl 0.4 MG CAP PO SCH (08:12)
[2023-03-13] MEDS: Pregabalin 75 MG CAP PO SCH ×3 (08:12→20:20)
[2023-03-13] MEDS: Bumetanide 1 MG TAB PO SCH ×2 (08:12→14:44)
[2023-03-13] MEDS: Senokot 8.6 MG TAB PO SCH ×2 (08:12→20:20)
[2023-03-13] MEDS: guaiFENesin/DM ER PO SCH ×2 (08:13→20:20)
[2023-03-13] MEDS: Finasteride 5 MG TAB PO SCH (08:14)
[2023-03-13] MEDS: Docusate 100 MG CAP PO SCH ×2 (08:14→20:19)
[2023-03-13] MEDS: Loratadine 10 MG TAB PO SCH (08:14)
[2023-03-13] MEDS: Empagliflozin 10 MG TAB PO SCH (08:14)
[2023-03-13] MEDS: Fluticasone Propionate Nasal Spray 16 gm Bottle NASAL SCH ×2 (08:15→20:19)
[2023-03-13] MEDS: Apixaban 5 MG TAB PO SCH ×2 (08:15→20:20)
[2023-03-13] MEDS: Milk Of Magnesia 30 ML UDCUP PO SCH (08:17)
[2023-03-13] MEDS: Polyethylene Glycol 3350 17 GM Packet PO SCH (08:17)
[2023-03-13] MEDS: Nicotine 21 MG PATCH TD SCH (08:17)
[2023-03-13] MEDS: Fluticasone/Umeclidin/Vilanter [Trelegy Ellipta 100-62.5-25] INH SCH (08:19)
[2023-03-13] MEDS: Potassium Chloride 20 MEQ TAB PO SCH ×2 (08:19→20:19)
[2023-03-13] MEDS: Emollient 15 oz bottle 450 ML, Triamcinolone Acetonide 200 MG TOP SCH ×2 (08:21→20:20)
[2023-03-13] MEDS: Atorvastatin Calcium 10 MG TAB PO SCH (20:20)
[2023-03-14] MEDS: Ipratropium/Albuterol 3 ML NEB NEB SCH ×4 (00:42→17:16)
[2023-03-14] MEDS: Cefepime 2 GM in Sodium Chloride 0.9% 100 ML IVPB SCH ×3 (00:43→17:15)
[2023-03-14] MEDS: Levothyroxine Sodium 50 MCG TAB PO SCH (05:00)
[2023-03-14 05:26] LABS: Hematocrit 28.4 % (42.0-52.0); Platelet Count 181 10x3/uL (130-400)
[2023-03-14] MEDS: Polyethylene Glycol 3350 17 GM Packet PO SCH (08:12)
[2023-03-14] MEDS: Pregabalin 75 MG CAP PO SCH ×3 (08:12→20:12)
[2023-03-14] MEDS: Nicotine 21 MG PATCH TD SCH (08:13)
[2023-03-14] MEDS: Fluticasone Propionate Nasal Spray 16 gm Bottle NASAL SCH ×2 (08:14→20:11)
[2023-03-14] MEDS: guaiFENesin/DM ER PO SCH ×2 (08:15→20:12)
[2023-03-14] MEDS: Apixaban 5 MG TAB PO SCH ×2 (08:16→20:13)
[2023-03-14] MEDS: Potassium Chloride 20 MEQ TAB PO SCH ×2 (08:16→20:12)
[2023-03-14] MEDS: Finasteride 5 MG TAB PO SCH (08:16)
[2023-03-14] MEDS: Tamsulosin HCl 0.4 MG CAP PO SCH (08:16)
[2023-03-14] MEDS: Loratadine 10 MG TAB PO SCH (08:17)
[2023-03-14] MEDS: Empagliflozin 10 MG TAB PO SCH (08:17)
[2023-03-14] MEDS: Bumetanide 1 MG TAB PO SCH ×2 (08:17→15:19)
[2023-03-14] MEDS: Docusate 100 MG CAP PO SCH ×2 (08:18→20:12)
[2023-03-14] MEDS: Milk Of Magnesia 30 ML UDCUP PO SCH (08:18)
[2023-03-14] MEDS: Fluticasone/Umeclidin/Vilanter [Trelegy Ellipta 100-62.5-25] INH SCH (08:19)
[2023-03-14] MEDS: Senokot 8.6 MG TAB PO SCH ×2 (08:21→20:12)
[2023-03-14] MEDS: Emollient 15 oz bottle 450 ML, Triamcinolone Acetonide 200 MG TOP SCH ×2 (08:22→20:13)
[2023-03-14] MEDS ORDERED: Mometasone 100 MCG/PUFF (1 INHALER) INH SCH (10:00)
[2023-03-14] MEDS: Mometasone 100 MCG/PUFF (1 INHALER) INH SCH (20:11)
[2023-03-14] MEDS: HYDROcodone/Acetaminophen 10/325 mg Tablet PO PRN (20:11)
[2023-03-14] MEDS: Atorvastatin Calcium 10 MG TAB PO SCH (20:13)
[2023-03-15] MEDS: Ipratropium/Albuterol 3 ML NEB NEB SCH ×5 (00:31→23:08)
[2023-03-15] MEDS: Cefepime 2 GM in Sodium Chloride 0.9% 100 ML IVPB SCH ×3 (00:32→17:25)
[2023-03-15] MEDS: Levothyroxine Sodium 50 MCG TAB PO SCH (05:11)
[2023-03-15 05:15] LABS: Hematocrit 26.8 % (42.0-52.0); Hemoglobin 8.5 g/dL (14.0-18.0); Platelet Count 166 10x3/uL (130-400)
[2023-03-15] MEDS: Polyethylene Glycol 3350 17 GM Packet PO SCH (08:26)
[2023-03-15] MEDS: Nicotine 21 MG PATCH TD SCH (08:27)
[2023-03-15] MEDS: guaiFENesin/DM ER PO SCH ×2 (08:27→20:05)
[2023-03-15] MEDS: Docusate 100 MG CAP PO SCH ×2 (08:28→20:05)
[2023-03-15] MEDS: Bumetanide 1 MG TAB PO SCH ×2 (08:28→14:23)
[2023-03-15] MEDS: Pregabalin 75 MG CAP PO SCH ×3 (08:28→20:09)
[2023-03-15] MEDS: Apixaban 5 MG TAB PO SCH ×2 (08:28→20:15)
[2023-03-15] MEDS: Finasteride 5 MG TAB PO SCH (08:28)
[2023-03-15] MEDS: Empagliflozin 10 MG TAB PO SCH (08:28)
[2023-03-15] MEDS: Milk Of Magnesia 30 ML UDCUP PO SCH (08:30)
[2023-03-15] MEDS: Loratadine 10 MG TAB PO SCH (08:30)
[2023-03-15] MEDS: Fluticasone Propionate Nasal Spray 16 gm Bottle NASAL SCH ×2 (08:31→20:05)
[2023-03-15] MEDS: Mometasone 100 MCG/PUFF (1 INHALER) INH SCH ×2 (08:34→20:05)
[2023-03-15] MEDS: Potassium Chloride 20 MEQ TAB PO SCH ×2 (08:35→20:05)
[2023-03-15] MEDS: Emollient 15 oz bottle 450 ML, Triamcinolone Acetonide 200 MG TOP SCH ×2 (08:36→20:15)
[2023-03-15] MEDS: Senokot 8.6 MG TAB PO SCH ×2 (08:37→20:05)
[2023-03-15] MEDS: Tamsulosin HCl 0.4 MG CAP PO SCH (08:37)
[2023-03-15] MEDS: HYDROcodone/Acetaminophen 10/325 mg Tablet PO PRN (20:03)
[2023-03-15] MEDS: Atorvastatin Calcium 10 MG TAB PO SCH (20:05)
[2023-03-16] MEDS: Cefepime 2 GM in Sodium Chloride 0.9% 100 ML IVPB SCH ×4 (00:13→23:59)
[2023-03-16 05:15] LABS: Hemoglobin 8.7 g/dL (14.0-18.0); Platelet Count 158 10x3/uL (130-400)
[2023-03-16] MEDS: Levothyroxine Sodium 50 MCG TAB PO SCH (05:28)
[2023-03-16] MEDS: Ipratropium/Albuterol 3 ML NEB NEB SCH ×4 (05:31→23:55)
[2023-03-16] MEDS: Mometasone 100 MCG/PUFF (1 INHALER) INH SCH ×2 (09:31→20:33)
[2023-03-16] MEDS: Fluticasone Propionate Nasal Spray 16 gm Bottle NASAL SCH ×2 (09:32→20:33)
[2023-03-16] MEDS: Polyethylene Glycol 3350 17 GM Packet PO SCH (09:32)
[2023-03-16] MEDS: Finasteride 5 MG TAB PO SCH (09:34)
[2023-03-16] MEDS: Pregabalin 75 MG CAP PO SCH ×3 (09:34→20:39)
[2023-03-16] MEDS: guaiFENesin/DM ER PO SCH ×2 (09:34→20:32)
[2023-03-16] MEDS: Bumetanide 1 MG TAB PO SCH ×2 (09:35→14:06)
[2023-03-16] MEDS: Docusate 100 MG CAP PO SCH ×2 (09:35→20:42)
[2023-03-16] MEDS: Loratadine 10 MG TAB PO SCH (09:35)
[2023-03-16] MEDS: Apixaban 5 MG TAB PO SCH ×2 (09:35→20:42)
[2023-03-16] MEDS: Potassium Chloride 20 MEQ TAB PO SCH ×2 (09:35→20:32)
[2023-03-16] MEDS: Tamsulosin HCl 0.4 MG CAP PO SCH (09:35)
[2023-03-16] MEDS: Empagliflozin 10 MG TAB PO SCH (09:35)
[2023-03-16] MEDS: Milk Of Magnesia 30 ML UDCUP PO SCH (09:36)
[2023-03-16] MEDS: Senokot 8.6 MG TAB PO SCH ×2 (09:36→20:33)
[2023-03-16] MEDS: Nicotine 21 MG PATCH TD SCH (09:37)
[2023-03-16] MEDS: Emollient 15 oz bottle 450 ML, Triamcinolone Acetonide 200 MG TOP SCH ×2 (09:47→20:40)
[2023-03-16] MEDS: HYDROcodone/Acetaminophen 10/325 mg Tablet PO PRN (20:40)
[2023-03-16] MEDS: Atorvastatin Calcium 10 MG TAB PO SCH (20:42)
[2023-03-17 05:12] LABS: Hematocrit 29.7 % (42.0-52.0); Platelet Count 141 10x3/uL (130-400)
[2023-03-17] MEDS: Ipratropium/Albuterol 3 ML NEB NEB SCH ×3 (05:12→17:05)
[2023-03-17] MEDS: Levothyroxine Sodium 50 MCG TAB PO SCH (05:13)
[2023-03-17] MEDS: Cefepime 2 GM in Sodium Chloride 0.9% 100 ML IVPB SCH ×2 (08:27→16:59)
[2023-03-17] MEDS: Bumetanide 1 MG TAB PO SCH ×2 (08:29→15:32)
[2023-03-17] MEDS: Tamsulosin HCl 0.4 MG CAP PO SCH (08:29)
[2023-03-17] MEDS: Docusate 100 MG CAP PO SCH ×2 (08:29→21:50)
[2023-03-17] MEDS: Polyethylene Glycol 3350 17 GM Packet PO SCH (08:29)
[2023-03-17] MEDS: Potassium Chloride 20 MEQ TAB PO SCH ×2 (08:29→21:51)
[2023-03-17] MEDS: guaiFENesin/DM ER PO SCH ×2 (08:29→21:50)
[2023-03-17] MEDS: Nicotine 21 MG PATCH TD SCH (08:29)
[2023-03-17] MEDS: Milk Of Magnesia 30 ML UDCUP PO SCH (08:29)
[2023-03-17] MEDS: Apixaban 5 MG TAB PO SCH ×2 (08:30→21:49)
[2023-03-17] MEDS: Pregabalin 75 MG CAP PO SCH ×3 (08:30→21:51)
[2023-03-17] MEDS: Empagliflozin 10 MG TAB PO SCH (08:30)
[2023-03-17] MEDS: Loratadine 10 MG TAB PO SCH (08:30)
[2023-03-17] MEDS: Senokot 8.6 MG TAB PO SCH ×2 (08:30→21:51)
[2023-03-17] MEDS: Finasteride 5 MG TAB PO SCH (08:30)
[2023-03-17] MEDS: Mometasone 100 MCG/PUFF (1 INHALER) INH SCH ×2 (08:31→21:51)
[2023-03-17] MEDS: Fluticasone Propionate Nasal Spray 16 gm Bottle NASAL SCH ×2 (08:31→21:50)
[2023-03-17] MEDS: Emollient 15 oz bottle 450 ML, Triamcinolone Acetonide 200 MG TOP SCH ×2 (08:32→21:53)
[2023-03-17] MEDS: HYDROcodone/Acetaminophen 10/325 mg Tablet PO PRN (19:38)
[2023-03-17] MEDS: Atorvastatin Calcium 10 MG TAB PO SCH (21:50)
[2023-03-18] MEDS: Cefepime 2 GM in Sodium Chloride 0.9% 100 ML IVPB SCH ×3 (00:59→21:29)
[2023-03-18] MEDS: Ipratropium/Albuterol 3 ML NEB NEB SCH ×4 (00:59→17:01)
[2023-03-18 05:15] LABS: Hemoglobin 8.5 g/dL (14.0-18.0); Platelet Count 128 10x3/uL (130-400)
[2023-03-18] MEDS: Levothyroxine Sodium 50 MCG TAB PO SCH (05:42)
[2023-03-18] MEDS: Potassium Chloride 20 MEQ TAB PO SCH ×2 (08:41→21:28)
[2023-03-18] MEDS: Senokot 8.6 MG TAB PO SCH ×2 (08:41→21:28)
[2023-03-18] MEDS: Polyethylene Glycol 3350 17 GM Packet PO SCH (08:41)
[2023-03-18] MEDS: Empagliflozin 10 MG TAB PO SCH (08:42)
[2023-03-18] MEDS: Pregabalin 75 MG CAP PO SCH ×3 (08:42→21:27)
[2023-03-18] MEDS: Docusate 100 MG CAP PO SCH ×2 (08:42→21:27)
[2023-03-18] MEDS: Loratadine 10 MG TAB PO SCH (08:42)
[2023-03-18] MEDS: Nicotine 21 MG PATCH TD SCH (08:44)
[2023-03-18] MEDS: Milk Of Magnesia 30 ML UDCUP PO SCH (08:44)
[2023-03-18] MEDS: Emollient 15 oz bottle 450 ML, Triamcinolone Acetonide 200 MG TOP SCH ×2 (08:46→21:30)
[2023-03-18] MEDS: Mometasone 100 MCG/PUFF (1 INHALER) INH SCH ×2 (08:56→21:25)
[2023-03-18] MEDS: Fluticasone Propionate Nasal Spray 16 gm Bottle NASAL SCH ×2 (08:56→21:26)
[2023-03-18] MEDS: guaiFENesin/DM ER PO SCH ×2 (08:57→21:27)
[2023-03-18] MEDS: Bumetanide 1 MG TAB PO SCH ×2 (12:00→17:00)
[2023-03-18] MEDS: Apixaban 5 MG TAB PO SCH ×2 (12:01→21:28)
[2023-03-18] MEDS: Finasteride 5 MG TAB PO SCH (12:02)
[2023-03-18] MEDS: Tamsulosin HCl 0.4 MG CAP PO SCH (12:02)
[2023-03-18] MEDS: Atorvastatin Calcium 10 MG TAB PO SCH (21:27)
[2023-03-18] MEDS: HYDROcodone/Acetaminophen 10/325 mg Tablet PO PRN (21:28)
[2023-03-19] MEDS: Ipratropium/Albuterol 3 ML NEB NEB SCH ×4 (00:19→17:37)
[2023-03-19] MEDS: Levothyroxine Sodium 50 MCG TAB PO SCH (05:40)
[2023-03-19 05:45] LABS: Hematocrit 27.2 % (42.0-52.0); Platelet Count 111 10x3/uL (130-400)
[2023-03-19] MEDS: Cefepime 2 GM in Sodium Chloride 0.9% 100 ML IVPB SCH (08:08)
[2023-03-19] MEDS: Bumetanide 1 MG TAB PO SCH ×2 (08:10→16:16)
[2023-03-19] MEDS: Senokot 8.6 MG TAB PO SCH (08:10)
[2023-03-19] MEDS: guaiFENesin/DM ER PO SCH (08:10)
[2023-03-19] MEDS: Finasteride 5 MG TAB PO SCH (08:10)
[2023-03-19] MEDS: Docusate 100 MG CAP PO SCH (08:10)
[2023-03-19] MEDS: Tamsulosin HCl 0.4 MG CAP PO SCH (08:10)
[2023-03-19] MEDS: Polyethylene Glycol 3350 17 GM Packet PO SCH (08:10)
[2023-03-19] MEDS: Empagliflozin 10 MG TAB PO SCH (08:10)
[2023-03-19] MEDS: Potassium Chloride 20 MEQ TAB PO SCH (08:11)
[2023-03-19] MEDS: Loratadine 10 MG TAB PO SCH (08:11)
[2023-03-19] MEDS: Pregabalin 75 MG CAP PO SCH ×2 (08:11→15:07)
[2023-03-19] MEDS: Nicotine 21 MG PATCH TD SCH (08:12)
[2023-03-19] MEDS: Fluticasone Propionate Nasal Spray 16 gm Bottle NASAL SCH (08:13)
[2023-03-19] MEDS: Emollient 15 oz bottle 450 ML, Triamcinolone Acetonide 200 MG TOP SCH (08:13)
[2023-03-19] MEDS: Mometasone 100 MCG/PUFF (1 INHALER) INH SCH (08:13)
[2023-03-19] MEDS ORDERED: Milk Of Magnesia 30 ML UDCUP PO SCH (09:00)
[2023-03-19] MEDS: Apixaban 5 MG TAB PO SCH (09:32)
[2023-03-19] MEDS ORDERED: Sodium Chloride 0.9% 500 ML IV SCH ×2 (16:45→21:45)
[2023-03-19 19:46] VITALS: BP 100/63; TEMP 97.6
[2023-03-19] MEDS ORDERED: Azithromycin 500 MG in Sodium Chloride 0.9% 250 ML 250 ML IVPB SCH (20:00)
== END 2023-03-19 20:50 | disposition short-term general hospital (02) | DRG 637 ==
LOC: MADMS 12:35
PROVIDERS: ADMIT Family Medicine; ATTEND Family Medicine
PROC: 5A09357 Assistance with Respiratory Ventilation, Less than 24 Consecutive Hours, Continuous Positive Airway Pressure (ICD-10-PCS; principal; 2023-03-11)
DX: E11.69 Type 2 diabetes mellitus with other specified complication (principal); J96.01 Acute respiratory failure with hypoxia; M86.9 Osteomyelitis, unspecified; I50.32 Chronic diastolic (congestive) heart failure; Z68.43 Body mass index [BMI] 50.0-59.9, adult; I48.0 Paroxysmal atrial fibrillation; J44.9 Chronic obstructive pulmonary disease, unspecified; Z91.048 Other nonmedicinal substance allergy status; Z88.1 Allergy status to other antibiotic agents; Z79.01 Long term (current) use of anticoagulants; Z79.899 Other long term (current) drug therapy; E11.51 Type 2 diabetes mellitus with diabetic peripheral angiopathy without gangrene; G47.33 Obstructive sleep apnea (adult) (pediatric); E03.9 Hypothyroidism, unspecified; Z96.642 Presence of left artificial hip joint; Z83.3 Family history of diabetes mellitus; D64.9 Anemia, unspecified; I87.2 Venous insufficiency (chronic) (peripheral); N40.0 Benign prostatic hyperplasia without lower urinary tract symptoms; R53.81 Other malaise; E66.9 Obesity, unspecified; F17.200 Nicotine dependence, unspecified, uncomplicated
CPT/HCPCS: 36415; 36416; 71045; 80048; 82565; 85014; 85018; 85025; 85049; 86140; 94640; 97602; J0692; J3301; J3490; J7050; J7620

== ENCOUNTER 2023-03-19 20:44 | Emergency (ER) | payer MEDICARE, OTHER ==
[2023-03-19] MEDS ORDERED: Furosemide 40 MG/4 ML VIAL ONE (20:58)
[2023-03-19 21:30] LABS: Hemoglobin 8.9 g/dL (14.0-18.0); Mean Corpuscular HGB CONC 29.6 g/dL (32.0-36.0); Mean Corpuscular Hemoglobin 28.9 pg (27.0-31.0); Mean Corpuscular Volume 97.4 fl (78.0-98.0); Mean Platelet Volume 7.6 fL (7.4-10.4); Platelet Count 114 10x3/uL (130-400); Red Blood Cell (RBC) Count 3.08 mill/uL (4.70-6.10); White Blood Cell (WBC) Count 3.1 10x3/uL (4.8-10.8)
[2023-03-19 21:36] LABS: Base Excess-Venous -0.5 mmol/L (-2.0 to 3.0); CO2 Tension (PvCO2) 43.3 mmHg (42.0-51.0); Calcium, Ionized 1.07 mmol/L (1.15-1.33); Chloride 109 mmol/L (98-107); Potassium 4.1 mmol/L (3.5-5.1); Sodium 142 mmol/L (138-145); T. Carbon Dioxide 26.3 mmol/L (22.0-28.0); vO2 Saturation-calc 91.5 % (60.0-85.0)
[2023-03-19 21:43] LABS: Troponin I 0.165 ng/mL (< 0.028)
[2023-03-19 21:51] LABS: ALT (SGPT) 8 U/L (8-55); AST (SGOT) 24 U/L (5-34); Albumin 3.1 g/dL (3.5-5.0); Alkaline Phosphatase 134 U/L (40-110); Anion Gap 19 mmol/L (10-20); BUN (Urea Nitrogen) 56 mg/dL (8.4-25.7); Bilirubin, Total 0.9 mg/dL (0.2-1.2); Calc. Creatinine Clearance 0 mL/min (70-130); Calcium 7.8 mg/dL (7.8-10.44); Carbon Dioxide 21 mmol/L (22-29); Chloride 107 mmol/L (98-107); Estimated GFR 15; Globulin 3.4 g/dL (2.4-3.5); Glucose 100 mg/dL (70-105); Magnesium 2.7 mg/dL (1.6-2.6); Protein, Total 6.5 g/dL (6.0-8.3); Sodium 143 mmol/L (136-145)
[2023-03-19 21:59] LABS: SARS-CoV-2 NAA Rapid Test DETECTED (NotDetected)
[2023-03-19] MEDS ORDERED: Sodium Chloride 0.9% 250 ML 250 ML ONE (22:00)
[2023-03-19] MEDS ORDERED: Aspirin Chewable 81 MG TAB ONE (22:00)
[2023-03-19] MEDS ORDERED: Vancomycin 1 GM VIAL ONE (22:00)
[2023-03-19] MEDS ORDERED: LevoFLOXacin 750 mg/D5W 150 ml Premix Bag ONE (22:01)
[2023-03-19 22:02] LABS: Band 7 % (5-11); Eosinophils 2 % (0-10); Hypochromia SLIGHT = 6-15 cells (100X) (0-5/hpf); Lymphocytes 12 % (21-51); MDiff Complete? YES; Metamyelocyte 1 % (0-0); Monocytes 5 % (0-10); Neutrophil 72 % (42-75); Platelet Adequacy Comment Appears Decreased
[2023-03-19] MEDS ORDERED: Dexamethasone 10 MG/ML VIAL ONE (22:08)
[2023-03-19] MEDS ORDERED: Albumin 25% 100 ML ONE (22:13)
[2023-03-20 01:06] LABS: Troponin I 0.122 ng/mL (< 0.028)
== END 2023-03-20 01:22 | disposition short-term general hospital (02) ==
LOC: MADERS 20:44
DX: U07.1 COVID-19 (principal); N17.9 Acute kidney failure, unspecified; I50.9 Heart failure, unspecified; J18.9 Pneumonia, unspecified organism; D61.818 Other pancytopenia; I21.4 Non-ST elevation (NSTEMI) myocardial infarction; I11.0 Hypertensive heart disease with heart failure; J44.9 Chronic obstructive pulmonary disease, unspecified; E11.9 Type 2 diabetes mellitus without complications; I48.91 Unspecified atrial fibrillation; F17.210 Nicotine dependence, cigarettes, uncomplicated; Z79.899 Other long term (current) drug therapy; Z79.01 Long term (current) use of anticoagulants
CPT/HCPCS: 82330; 82803; 83605; 83735; 83880; 84484; 85025; 87040; 93005; 94760; 96374; 96375; J1100; J1940; J1956; J3370; J7050; P9047

== ENCOUNTER 2023-05-06 17:25 | Emergency (ER) | payer MEDICARE, OTHER | END 2023-05-06 20:48 | disposition short-term general hospital (02) | LOC: MADERS 17:25 | DX: M25.552 Pain in left hip (principal); I11.0 Hypertensive heart disease with heart failure; I50.9 Heart failure, unspecified; I48.91 Unspecified atrial fibrillation; E11.9 Type 2 diabetes mellitus without complications; E03.9 Hypothyroidism, unspecified; E78.5 Hyperlipidemia, unspecified; F17.210 Nicotine dependence, cigarettes, uncomplicated; J44.9 Chronic obstructive pulmonary disease, unspecified; I73.9 Peripheral vascular disease, unspecified; G47.30 Sleep apnea, unspecified; Z95.0 Presence of cardiac pacemaker; Z74.01 Bed confinement status; Z89.432 Acquired absence of left foot; Z79.01 Long term (current) use of anticoagulants; Z79.4 Long term (current) use of insulin; Z79.899 Other long term (current) drug therapy; Z96.642 Presence of left artificial hip joint ==

== ENCOUNTER 2023-05-28 03:47 | Emergency (ER) | payer OTHER ==
[2023-05-28 04:17] LABS: #Basophils 0.1 thou/uL (0.0-0.2); #Eosinphils 0.2 thou/uL (0.0-0.7); #Lymphocytes 0.6 thou/uL (1.20-3.40); #Monocytes 0.8 thou/uL (0.11-0.59); #Neutrophils 4.6 thou/uL (1.40-6.50); %Basophils 2.3 % (0.0-1.0); %Eosinophils 3.5 % (0.0-10.0); %Lymphocytes 9.1 % (21.0-51.0); %Monocytes 13.2 % (0.0-10.0); %Neutrophils 71.9 % (42.0-75.0); Hematocrit 27.8 % (42.0-52.0); Hemoglobin 8.9 g/dL (14.0-18.0); Mean Corpuscular HGB CONC 32.2 g/dL (32.0-36.0); Mean Corpuscular Hemoglobin 30.3 pg (27.0-31.0); Mean Corpuscular Volume 94.2 fl (78.0-98.0); Mean Platelet Volume 9.9 fL (7.4-10.4); Platelet Count 227 10x3/uL (130-400); RBC Distribution Width 18.5 % (11.5-14.5); Red Blood Cell (RBC) Count 2.95 mill/uL (4.70-6.10); White Blood Cell (WBC) Count 6.4 10x3/uL (4.8-10.8)
[2023-05-28 04:35] LABS: ALT (SGPT) 8 U/L (8-55); AST (SGOT) 18 U/L (5-34); Albumin 3.2 g/dL (3.5-5.0); Alkaline Phosphatase 155 U/L (40-110); Anion Gap 17 mmol/L (10-20); BUN (Urea Nitrogen) 20 mg/dL (8.4-25.7); Bilirubin, Total 3.7 mg/dL (0.2-1.2); Calc. Creatinine Clearance 0 mL/min (70-130); Calcium 8.4 mg/dL (7.8-10.44); Carbon Dioxide 26 mmol/L (22-29); Chloride 95 mmol/L (98-107); Estimated GFR 25; Globulin 3.8 g/dL (2.4-3.5); Glucose 109 mg/dL (70-105); Lipase 37 U/L (8-78); Potassium 2.9 mmol/L (3.5-5.1); Sodium 135 mmol/L (136-145)
[2023-05-28 04:36] LABS: Troponin I 0.086 ng/mL (< 0.028)
[2023-05-28] MEDS ORDERED: Norepinephrine 4 MG/4 ML VIAL ONE (05:53)
[2023-05-28] MEDS ORDERED: Sodium Chloride 0.9% 500 ML ONE (05:53)
[2023-05-28] MEDS ORDERED: Midodrine HCl 5 MG TAB PO SCH (06:15)
[2023-05-28] MEDS ORDERED: Sodium Chloride 0.9% 100 ML ONE (06:38)
[2023-05-28] MEDS ORDERED: Cefepime 1 GM VIAL ONE (06:38)
[2023-05-28] MEDS ORDERED: Albumin 25% 100 ML ONE (06:46)
[2023-05-28 07:54] LABS: Influenza A by NAA Not Detected (NotDetected); Influenza B by NAA Not Detected (NotDetected); SARS-CoV-2 NAA Rapid Test Not Detected (NotDetected)
== END 2023-05-28 07:28 | disposition short-term general hospital (02) ==
LOC: MADERS 03:47
DX: I13.0 Hypertensive heart and chronic kidney disease with heart failure and stage 1 through stage 4 chronic kidney disease, or unspecified chronic kidney disease (principal); I50.9 Heart failure, unspecified; N18.6 End stage renal disease; I95.9 Hypotension, unspecified; E87.70 Fluid overload, unspecified; E87.6 Hypokalemia; I48.91 Unspecified atrial fibrillation; E11.22 Type 2 diabetes mellitus with diabetic chronic kidney disease; E03.9 Hypothyroidism, unspecified; F17.210 Nicotine dependence, cigarettes, uncomplicated; Z79.01 Long term (current) use of anticoagulants; Z79.82 Long term (current) use of aspirin; Z79.890 Hormone replacement therapy; Z79.899 Other long term (current) drug therapy; Z95.0 Presence of cardiac pacemaker
CPT/HCPCS: 71045; 80053; 83690; 83880; 84484; 85025; 87040; 87077; 87149; 93005; 94760; 96365; 96375; J0692; J3490; J7030; P9047

== ENCOUNTER 2023-06-11 15:20 | Emergency (ER) | payer OTHER ==
[2023-06-11 16:34] LABS: #Basophils 0.1 thou/uL (0.0-0.2); #Lymphocytes 0.8 thou/uL (1.20-3.40); #Monocytes 0.6 thou/uL (0.11-0.59); #Neutrophils 7.6 thou/uL (1.40-6.50); %Basophils 1.4 % (0.0-1.0); %Eosinophils 0.4 % (0.0-10.0); %Lymphocytes 8.5 % (21.0-51.0); %Monocytes 6.5 % (0.0-10.0); %Neutrophils 83.2 % (42.0-75.0); Hematocrit 29.7 % (42.0-52.0); Hemoglobin 9.5 g/dL (14.0-18.0); Mean Corpuscular Volume 93.7 fl (78.0-98.0); Mean Platelet Volume 7.7 fL (7.4-10.4); Platelet Count 151 10x3/uL (130-400); RBC Distribution Width 17.4 % (11.5-14.5); Red Blood Cell (RBC) Count 3.17 mill/uL (4.70-6.10); White Blood Cell (WBC) Count 9.2 10x3/uL (4.8-10.8)
[2023-06-11 16:47] LABS: Base Excess-Venous 3.2 mmol/L (-2.0 to 3.0); Bicarbonate (HCO3v) 28.3 mmol/L (22.0-28.0); CO2 Tension (PvCO2) 44.3 mmHg (42.0-51.0); Calcium, Ionized 1.01 mmol/L (1.15-1.33); Chloride 99 mmol/L (98-107); Hemoglobin - Calc 11.5 g/dL (14.0-18.0); Potassium 3.7 mmol/L (3.5-5.1); Sodium 136 mmol/L (138-145); T. Carbon Dioxide 29.7 mmol/L (22.0-28.0); vO2 Saturation-calc 81.1 % (60.0-85.0)
[2023-06-11 16:48] LABS: ALT (SGPT) Less than 7 U/L (8-55); AST (SGOT) 8 U/L (5-34); Albumin 3.9 g/dL (3.5-5.0); Alkaline Phosphatase 111 U/L (40-110); Anion Gap 21 mmol/L (10-20); BUN (Urea Nitrogen) 45 mg/dL (8.4-25.7); Bilirubin, Total 2.8 mg/dL (0.2-1.2); Calc. Creatinine Clearance 0 mL/min (70-130); Carbon Dioxide 25 mmol/L (22-29); Chloride 96 mmol/L (98-107); Estimated GFR 15; Globulin 3.8 g/dL (2.4-3.5); Glucose 99 mg/dL (70-105); Potassium 3.8 mmol/L (3.5-5.1); Protein, Total 7.7 g/dL (6.0-8.3); Sodium 138 mmol/L (136-145)
[2023-06-11 16:51] LABS: Troponin I 0.086 ng/mL (< 0.028)
[2023-06-11] MEDS ORDERED: Aspirin Chewable 81 MG TAB ONE (17:09)
[2023-06-11 17:48] LABS: Influenza A by NAA Not Detected (NotDetected); Influenza B by NAA Not Detected (NotDetected); SARS-CoV-2 NAA Rapid Test Not Detected (NotDetected)
[2023-06-11 19:01] LABS: Troponin I 0.101 ng/mL (< 0.028)
[2023-06-11] MEDS ORDERED: Midodrine HCl 5 MG TAB PO SCH (19:15)
[2023-06-11 22:47] LABS: Troponin I 0.117 ng/mL (< 0.028)
== END 2023-06-12 00:55 | disposition short-term general hospital (02) ==
LOC: MADERS 15:20
DX: R06.00 Dyspnea, unspecified (principal); I11.0 Hypertensive heart disease with heart failure; I50.9 Heart failure, unspecified; R79.89 Other specified abnormal findings of blood chemistry; E11.9 Type 2 diabetes mellitus without complications; E03.9 Hypothyroidism, unspecified; E78.5 Hyperlipidemia, unspecified; J44.9 Chronic obstructive pulmonary disease, unspecified; Z79.899 Other long term (current) drug therapy; Z79.01 Long term (current) use of anticoagulants
CPT/HCPCS: 0240U; 71045; 80053; 82330; 82435; 82803; 83880; 84132; 84295; 84484 ×2; 85014; 85025; 93005